=== PATIENT | female | born 1980 | race Caucasian/White ===

== ENCOUNTER 2018-08-06 15:34 | Emergency (ER) | payer SELFPAY ==
[~2018-08-06] VITALS: Ht 162.6 cm; Wt 72.6 kg
--- NOTE | 2018-08-06 16:23 | ED Lower Extremity ---
General Stated Complaint: POSSIBLE SPRAIN RT ANKLE Source: patient Exam Limitations: no limitations History of Present Illness Date Seen by Provider: Aug 06, 2018 Time Seen by Provider: 16:09 Initial Comments The patient presents to the ER by private conveyance with chief complaint that she was playing basketball yesterday and rolled her ankle forward and a little bit laterally. She doesn't member exactly how it happened but it hurt immediately and she started having some swelling. She put some ice on it yesterday and took some Tylenol PM last night so she had. She's not had anything for today and doesn't want anything. She says still quite swollen and painful and she is afraid fracture versus sprain. She does not have a primary care doctor but she would like to get linked back up with one for her preventative health issues. She does not take any medicines. Allergies and Home Medications Allergies Coded Allergies: clindamycin (Unverified Adverse Reaction, Unknown, 08/06/18) latex (Unverified Adverse Reaction, Unknown, 08/06/18) Patient Home Medication List Home Medication List Reviewed: Yes Review of Systems Constitutional: No chills, No fever EENTM: No ear discharge, No ear pain Respiratory: No cough, No short of breath Cardiovascular: No chest pain, No edema Gastrointestinal: No abdominal pain, No constipation, No diarrhea, No nausea Genitourinary: No discharge, No dysuria Past Fyicmuq-Boyodr-Myyqpe Hx Patient Social History Alcohol Use: Denies Use Recreational Drug Use: No Recent Foreign Travel: No Contact w/Someone Who Travel: No Physical Exam Vital Signs Capillary Refill : Height, Weight, BMI Height: '" Weight: lbs. oz. kg; BMI Method: General Appearance: WD/WN, no apparent distress HEENT: PERRL/EOMI, pharynx normal Cardiovascular: normal peripheral pulses, regular rate, rhythm Respiratory: no respiratory distress, no accessory muscle use Knees: bilateral knee non-tender, bilateral knee normal inspection, bilateral knee normal range of motion, bilateral knee no evidence of injury Ankles: left ankle non-tender, left ankle normal inspection, left ankle normal range of motion, left ankle no evidence of injury; right ankle bone tenderness ( lateral malleoli), right ankle ecchymosis, right ankle soft tissue tenderness, right ankle swelling (mild) Feet: left foot non-tender, left foot normal inspection; bilateral foot normal range of motion; left foot no evidence of injury; right foot bone tenderness ( tenderness over the dorsum of her right foot), right foot ecchymosis, right foot pain, right foot soft tissue tenderness, right foot swelling (mild) Neurologic/Tendon: normal sensation, normal motor functions, normal tendon functions, responds to pain Neurologic/Psychiatric: alert, normal mood/affect, oriented x 3 Skin: normal color, warm/dry Progress/Results/Core Measures Results/Orders Lab Results Laboratory Tests Test 08/06/18 16:45 Range/Units Urine Test NEGATIVE NEGATIVE My Orders Orders - MELANIE RODRIGUEZ Ankle 3 View Right (08/06/18 16:18) Foot 3 View Right (08/06/18 16:18) Hcg,Qualitative Urine (08/06/18 16:50) Progress Progress Note : Time: 16:22 Progress Note X-ray of the ankle for her right lateral malleoli tenderness and swelling as well as the right foot. She has declined anything for pain. We are going to provide her with an ice pack while she waits. Diagnostic Imaging Diagonstic Imaging: Xray Plain Films/CT/US/NM/MRI: other (right foot) Comments [facility] [place], [place] NAME: DARBYPETAR M [facility] REC#: [id number] PT STATUS: REG ER : 1980 PHYSICIAN: MELANIE RODRIGUEZ MD ADMIT DATE: 08/06/18/ER FS Draft Date of Exam:08/06/18 FOOT 3 VIEW RIGHT INDICATION: Injury to the right foot playing basketball. TIME OF EXAM: 04:53 p.m. FINDINGS: Three views of the right foot were obtained. Metatarsals and phalanges appear to be intact. Mid foot and hind foot are unremarkable. No fractures are seen. IMPRESSION: No acute bony abnormality is detected. Dictated on workstation # [id number] Dict: 08/06/18 1720 Trans: 08/06/18 [id number] Interpreted by: DARYL GALAVIZ MD Electronically signed by: Reviewed: Reviewed by Me Diagonstic Imaging: Xray Plain Films/CT/US/NM/MRI: ankle (right) Comments [facility] [place] [place] NAME: PETAR PASTOR [facility] REC#: [id number] PT STATUS: REG ER : 1980 PHYSICIAN: MELANIE RODRIGUEZ MD ADMIT DATE: 08/06/18/ER FS Draft Date of Exam:08/06/18 ANKLE 3 VIEW RIGHT INDICATION: Rolled ankle playing basketball. TIME OF EXAM: 04:51 p.m. FINDINGS: Three views of the right ankle were obtained. Alignment is normal. Ankle mortise is well maintained. Talar dome is smooth. No fracture or dislocation is seen. There is some lateral soft tissue swelling present. IMPRESSION: Lateral swelling. No acute bony abnormality is detected. Dictated on workstation # [id number] Dict: 08/06/18 1719 Trans: 08/06/18 1724 [id number] Interpreted by: DARYL GALAVIZ MD Electronically signed by: Reviewed: Reviewed by Me Departure Impression Primary Impression: Right ankle sprain Qualified Codes: S93.401A - Sprain of unspecified ligament of right ankle, initial encounter Disposition: HOME, SELF-CARE Condition: Stable Departure-Patient Inst. Decision time for Depature: 17:39 Referrals: NO,LOCAL PHYSICIAN (PCP) Primary Care Physician Patient Instructions: Ankle Sprain (DC), LOCAL PHYSICIAN LIST Add. Discharge Instructions: Elevate your ankle above the level of your heart when not in use. Minimize walking on it when you don't need to. Wrap the ankle with an Miguel bandage for the next week as needed for swelling. Apply ice for 20 minutes every 4 hours while awake to the right ankle and foot for the first 3 days of your injury. Use Tylenol 1000 mg every 8 hours in addition to ibuprofen 800 mg every 8 hours if necessary for pain. Follow-up with a primary care provider in one to 2 weeks if you do not feel you' re seeing some improvement in your right ankle. MELANIE RODRIGUEZ Aug 06, 2018 16:23
--- NOTE | 2018-08-06 17:24 | Diagnostic Imaging Report ---
INDICATION: Rolled ankle playing basketball. TIME OF EXAM: 04:51 p.m. FINDINGS: Three views of the right ankle were obtained. Alignment is normal. Ankle mortise is well maintained. Talar dome is smooth. No fracture or dislocation is seen. There is some lateral soft tissue swelling present. IMPRESSION: Lateral swelling. No acute bony abnormality is detected. Dictated by: Dictated on workstation # [id number]
--- NOTE | 2018-08-06 17:31 | Diagnostic Imaging Report ---
INDICATION: Injury to the right foot playing basketball. TIME OF EXAM: 04:53 p.m. FINDINGS: Three views of the right foot were obtained. Metatarsals and phalanges appear to be intact. Mid foot and hind foot are unremarkable. No fractures are seen. IMPRESSION: No acute bony abnormality is detected. Dictated by: Dictated on workstation # [id number]
[2018-08-06 17:50] VITALS: BP 133/66
== END 2018-08-06 17:50 | disposition home or self-care (01) ==
LOC: ER FS 15:37
DX: S93.401A Sprain of unspecified ligament of right ankle, initial encounter (principal); Z88.1 Allergy status to other antibiotic agents; Z91.040 Latex allergy status; X50.1XXA Overexertion from prolonged static or awkward postures, initial encounter; Y93.67 Activity, basketball
CPT/HCPCS: 73610; 73630; 84703

== ENCOUNTER 2018-10-21 20:30 | Emergency (ER) | payer SELFPAY ==
[~2018-10-21] VITALS: Ht 160 cm; Wt 63.0 kg
--- NOTE | 2018-10-21 21:23 | NUR ---
PT. REPORTED THAT SHE FEELS LIKE SHE HAS A HEART BEAT IN HER STOMACH AND ITS REALLY ANNOYING. DOCTOR INFORMED.
[2018-10-21 21:34] LABS: BILIRUBIN,URINE NEGATIVE (NEGATIVE); CLARITY,URINE CLEAR; COLOR,URINE YELLOW; KETONES,URINE NEGATIVE (NEGATIVE); LEUKOCYTE ESTERASE ,URINE NEGATIVE (NEGATIVE); NITRITE,URINE NEGATIVE (NEGATIVE); PROTEIN,URINE NEGATIVE (NEGATIVE)
[2018-10-21 21:35] LABS: BACTERIA,URINE NEGATIVE /HPF; GLUCOSE, URINE (UA) NEGATIVE (NEGATIVE); RBC,URINE 0-2 /HPF; WBC,URINE 0-2 /HPF
[2018-10-21 21:45] LABS: AMPHETAMINE SCREEN, URINE NEGATIVE (NEGATIVE); BARBITURATE SCREEN URINE NEGATIVE (NEGATIVE); BENZODIAZEPINES SCREEN URINE NEGATIVE (NEGATIVE); CANNABINOID SCREEN, URINE NEGATIVE (NEGATIVE); COCAINE SCREEN URINE NEGATIVE (NEGATIVE); METHADONE STAT NEGATIVE (NEGATIVE); METHAMPHETAMINE SCREEN URINE S NEGATIVE (NEGATIVE); OPIATE SCREEN URINE NEGATIVE (NEGATIVE); OXYCODONE STAT NEGATIVE (NEGATIVE); PROPOXYPHENE STAT NEGATIVE (NEGATIVE); TRICYCLIC ANTIDEPRESSANTS SCRE NEGATIVE (NEGATIVE)
[2018-10-21 21:57] VITALS: BP 120/67
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
[2018-10-21] MEDS ORDERED: ONDA4TAB11 PO (22:05)
--- OUTSIDE RECORDS SUMMARY | 2018-10-21 23:56 | XMS REPORT | Continuity of Care Document ---
Author Organization Unknown Address Unknown Allergies There is no data. Medications There is no data. Problems There is no data. Procedures There is no data. Results There is no data. Encounters ACCT No. Visit Date/Time Discharge Status Pt. Type Provider Facility Loc./Unit Complaint [id number] 10/08/2018 14:45:00 10/08/2018 23:59:59 [facility] Outpatient CAMILLE SHETH [facility]
== END 2018-10-21 22:08 | disposition home or self-care (01) ==
LOC: EDUNIT# 20:30 → ER FS 20:32
DX: M54.9 Dorsalgia, unspecified (principal); R10.2 Pelvic and perineal pain; J44.9 Chronic obstructive pulmonary disease, unspecified; G40.909 Epilepsy, unspecified, not intractable, without status epilepticus; Z88.1 Allergy status to other antibiotic agents; Z91.040 Latex allergy status; Z98.890 Other specified postprocedural states; Z90.49 Acquired absence of other specified parts of digestive tract
CPT/HCPCS: 36415; 80306; 81000; 84703; 99283

== ENCOUNTER 2018-11-22 01:14 | Emergency (ER) | payer SELFPAY ==
[~2018-11-22] VITALS: Ht 160 cm; Wt 59.0 kg
[~2018-11-22 01:14] MED LIST: ONDA4TAB11 PO
[2018-11-22] MEDS ORDERED: HYDROmorphone 2 MG/ML VIAL (DILAUDID) ONE (01:21)
--- OUTSIDE RECORDS SUMMARY | 2018-11-22 01:27 | XMS REPORT | Continuity of Care Document ---
Author Organization Unknown Address Unknown Allergies There is no data. Medications There is no data. Problems There is no data. Procedures There is no data. Results There is no data. Encounters ACCT No. Visit Date/Time Discharge Status Pt. Type Provider Facility Loc./Unit Complaint [id number] 10/23/2018 13:45:00 10/23/2018 23:59:59 [facility] Outpatient CAMILLE SHETH [facility]
[2018-11-22] MEDS ORDERED: HYDROmorphone 2 MG/ML VIAL (DILAUDID) IVP ONE (01:30)
[2018-11-22] MEDS ORDERED: TETANUS,DIPTH,PERTUSS P/F (BOOSTRIX) 0.5 ML VIAL IM ONE (01:30)
[2018-11-22] MEDS ORDERED: NS IV 1000 ML 1,000 ML IV SCH (01:30)
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
[2018-11-22 01:56] LABS: BASOPHILS % (AUTO) 1 % (0-10); EOSINOPHILS % (AUTO) 0 % (0-10); HEMATOCRIT 35 % (35-52); HEMOGLOBIN 11.4 G/DL (11.5-16.0); LYMPHOCYTES % (AUTO) 26 % (12-44); MEAN CORPUSCULAR HEMOGLOBIN 31 PG (25-34); MEAN CORPUSCULAR HGB CONC 33 G/DL (32-36); MEAN CORPUSCULAR VOLUME 96 FL (80-99); MEAN PLATELET VOLUME 9.7 FL (7.4-10.4); MONOCYTES % (AUTO) 6 % (0-12); NEUTROPHILS % (AUTO) 67 % (42-75); PLATELET COUNT 323 10^3/uL (130-400); RED CELL DISTRIBUTION WIDTH 15.9 % (10.0-14.5); WHITE BLOOD COUNT 10.7 10^3/uL (4.3-11.0)
[2018-11-22 02:00] LABS: BASOPHILS # (AUTO) 0.1 10^3/uL (0.0-0.1); LYMPHOCYTES # (AUTO) 2.8 X 10^3 (1.0-4.0); MONOCYTES # (AUTO) 0.7 X 10^3 (0.0-1.0); NEUTROPHILS # (AUTO) 7.2 X 10^3 (1.8-7.8)
[2018-11-22 02:09] LABS: INR 1.1 (0.8-1.4); PROTHROMBIN TIME PATIENT 14.2 SEC (12.2-14.7)
[2018-11-22 02:16] LABS: ALANINE AMINOTRANSFERASE 13 U/L (0-55); ALBUMIN 3.7 GM/DL (3.2-4.5); ALKALINE PHOSPHATASE 65 U/L (40-136); BILIRUBIN,TOTAL 0.4 MG/DL (0.1-1.0); BUN/CREATININE RATIO 12; CALCIUM 8.1 MG/DL (8.5-10.1); CARBON DIOXIDE 17 MMOL/L (21-32); CHLORIDE 109 MMOL/L (98-107); CREATININE SERUM 0.66 MG/DL (0.60-1.30); GFR ESTIMATED > 60; GLUCOSE 83 MG/DL (70-105); POTASSIUM 3.8 MMOL/L (3.6-5.0); SODIUM 143 MMOL/L (135-145); TOTAL PROTEIN 6.3 GM/DL (6.4-8.2)
[2018-11-22 03:18] VITALS: BP 86/56
== END 2018-11-22 03:20 | disposition short-term general hospital (02) ==
LOC: EDUNIT# 01:14 → ER FS 01:23
DX: T21.35XA Burn of third degree of buttock, initial encounter (principal); T21.27XA Burn of second degree of female genital region, initial encounter; J44.9 Chronic obstructive pulmonary disease, unspecified; F20.9 Schizophrenia, unspecified; G40.909 Epilepsy, unspecified, not intractable, without status epilepticus; Z90.49 Acquired absence of other specified parts of digestive tract; Z88.1 Allergy status to other antibiotic agents; Z91.040 Latex allergy status; X08.8XXA Exposure to other specified smoke, fire and flames, initial encounter; Y93.01 Activity, walking, marching and hiking
CPT/HCPCS: 36415; 80053; 80320; 84702; 85025; 85610; 85730; 90471; 90715; 96374

== ENCOUNTER 2018-11-28 04:29 | Emergency (ER) | payer SELFPAY ==
[~2018-11-28] VITALS: Ht 160 cm; Wt 59.0 kg
--- OUTSIDE RECORDS SUMMARY | 2018-11-28 04:35 | XMS REPORT | Continuity of Care Document ---
Author Organization Unknown Address Unknown Allergies There is no data. Medications There is no data. Problems There is no data. Procedures There is no data. Results There is no data. Encounters ACCT No. Visit Date/Time Discharge Status Pt. Type Provider Facility Loc./Unit Complaint [id number] 10/23/2018 13:45:00 10/23/2018 23:59:59 [facility] Outpatient CAMILLE SHETH [facility]
[2018-11-28 05:01] LABS: HCG,QUALITATIVE URINE NEGATIVE (NEGATIVE)
[2018-11-28 05:14] LABS: AMPHETAMINE SCREEN, URINE NEGATIVE (NEGATIVE); BARBITURATE SCREEN URINE NEGATIVE (NEGATIVE); BENZODIAZEPINES SCREEN URINE NEGATIVE (NEGATIVE); BILIRUBIN,URINE NEGATIVE (NEGATIVE); CANNABINOID SCREEN, URINE NEGATIVE (NEGATIVE); CLARITY,URINE CLEAR; COCAINE SCREEN URINE NEGATIVE (NEGATIVE); COLOR,URINE YELLOW; GLUCOSE, URINE (UA) NEGATIVE (NEGATIVE); KETONES,URINE NEGATIVE (NEGATIVE); LEUKOCYTE ESTERASE ,URINE 1+ (NEGATIVE); METHADONE STAT NEGATIVE (NEGATIVE); METHAMPHETAMINE SCREEN URINE S NEGATIVE (NEGATIVE); NITRITE,URINE NEGATIVE (NEGATIVE); OPIATE SCREEN URINE NEGATIVE (NEGATIVE); OXYCODONE STAT NEGATIVE (NEGATIVE); PROPOXYPHENE STAT NEGATIVE (NEGATIVE); PROTEIN,URINE NEGATIVE (NEGATIVE); TRICYCLIC ANTIDEPRESSANTS SCRE NEGATIVE (NEGATIVE); UROBILINOGEN,URINE 0.2 MG/DL (NORMAL)
[2018-11-28 05:15] LABS: RBC,URINE 0-2 /HPF; WBC,URINE 0-2 /HPF
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
[2018-11-28] MEDS ORDERED: DOCU-143 PO (05:44)
[2018-11-28] MEDS ORDERED: TRAM50TA2 PO (05:44)
[2018-11-28 05:47] VITALS: BP 124/92
== END 2018-11-28 05:47 | disposition home or self-care (01) ==
LOC: EDUNIT# 04:29 → ER FS 04:32
DX: R10.33 Periumbilical pain (principal); T21.25XD Burn of second degree of buttock, subsequent encounter; T21.2 Burn of second degree of trunk; J44.9 Chronic obstructive pulmonary disease, unspecified; G40.909 Epilepsy, unspecified, not intractable, without status epilepticus; F20.9 Schizophrenia, unspecified; F17.290 Nicotine dependence, other tobacco product, uncomplicated; Z91.14 Patient's other noncompliance with medication regimen; Z88.1 Allergy status to other antibiotic agents; Z91.040 Latex allergy status; Z90.49 Acquired absence of other specified parts of digestive tract; Z98.51 Tubal ligation status; X19.XXXD Contact with other heat and hot substances, subsequent encounter
CPT/HCPCS: 80306; 81000; 82962; 84703

== ENCOUNTER 2018-12-06 19:59 | Emergency (ER) | payer SELFPAY ==
[~2018-12-06] VITALS: Ht 162.6 cm; Wt 61.2 kg
[~2018-12-06 19:59] MED LIST changes: +DOCU-143 PO; +TRAM50TA2 PO
[2018-12-06] MEDS ORDERED: ACETAMINOPHEN 500 MG TAB (TYLENOL) PO ONE (20:30)
[2018-12-06 20:32] VITALS: BP 126/97
--- NOTE | 2018-12-06 21:01 | ED General ---
General Chief Complaint: Psych/Social Disorder Stated Complaint: MENTAL HEALTH SCREENING Nursing Triage Note: pt states problems with anxiety, no homicidal/suicidal thoughts, unsure of psych medications but wants medications "straightened out". pt also co bilateral hip pain for a year and nausea for 2 months Nursing Sepsis Screen: No Definite Risk Source of Information: Patient, EMS History of Present Illness Date Seen by Provider: Dec 06, 2018 Time Seen by Provider: 20:30 Initial Comments Patient is a 38-year-old female with history of schizophrenia presents with request for medication refill and bilateral hip pain 2 days duration. Patient denies fall, trauma or repetitive strain injury to hips or back. No back or flank pain. Pain is moderate reproduces with ambulation. No medications or therapies taken prior to ED arrival. Patient also states she's been out of all her general medications and psychiatric medications for at least 2 months. Patient states she stopped taking the medications, she felt as though she was feeling better and felt that time sedated on medications. Patient does not know listed medication and is unsure if she has refill of medications. Patient's pharmacy is [facility]. Patient denies any HI or SI. No other acute symptoms or complaints. Timing/Duration: 1-2 Days Modifying Factors: improves with Other Allergies and Home Medications Allergies Coded Allergies: clindamycin (Unverified Adverse Reaction, Unknown, 10/21/18) latex (Unverified Adverse Reaction, Unknown, 10/21/18) Home Medications Docusate Sodium 100 Mg Capsule, 100 MG PO DAILY Prescribed by: SUKHDEEP ALBA on 11/28/18 0544 Ondansetron 4 Mg Tab.rapdis, 4 MG PO Q6H Prescribed by: SUKHDEEP ALBA on 10/21/189 Tramadol HCl 50 Mg Tablet, 50 MG PO Q6H PRN for PAIN Prescribed by: SUKHDEEP ALBA on 11/28/18 0544 Patient Home Medication List Home Medication List Reviewed: No Review of Systems Review of Systems Constitutional: no symptoms reported EENTM: see HPI Respiratory: no symptoms reported, dyspnea on exertion Cardiovascular: chest pain Genitourinary: no symptoms reported Musculoskeletal: see HPI Skin: no symptoms reported Psychiatric/Neurological: See HPI, Anxiety, Emotional Problems Past Sobetur-Rwkhbc-Htxbtc Hx Past Med/Social Hx: Reviewed Nursing Past Med/Soc Hx Patient Social History Alcohol Use: Occasionally Uses Number of Drinks Today: AA Alcohol Beverage of Choice: Beer Recreational Drug Use: No Type Used: Cigars 2nd Hand Smoke Exposure: Yes Recent Foreign Travel: No Contact w/Someone Who Travel: No Recent Infectious Disease Expo: No Recent Hopitalizations: No Physical Abuse: No Sexual Abuse: No Mistreated: No Fear: No Immunizations Up To Date Tetanus Booster (TDap): Less than 5yrs Seasonal Allergies Seasonal Allergies: No Past Medical History Surgeries: Yes (C/S) Appendectomy, Section, Tubal Ligation Respiratory: Yes Asthma, COPD Cardiac: No Neurological: Yes (EPILEPSY) Seizure Disorder Genitourinary: No Gastrointestinal: No Musculoskeletal: No Endocrine: No HEENT: No Cancer: No Psychosocial: Yes Schizophrenia Integumentary: No Blood Disorders: No Physical Exam Vital Signs Vital Signs - First Documented 12/06/18 20:20 Temp 97.8 Pulse 94 Resp 20 B/P (MAP) 126/97 (107) Pulse Ox 97 O2 Delivery Room Air Capillary Refill : Less Than 3 Seconds Height, Weight, BMI Height: 5'4.00" Weight: 135lbs. 0oz. 61.514356me; 21.09 BMI Method:Stated General Appearance: No Apparent Distress, WD/WN, Anxious Eyes: Bilateral Eye Normal Inspection, Bilateral Eye PERRL HEENT: PERRL/EOMI, TMs Normal, Normal ENT Inspection Neck: Full Range of Motion Respiratory: Chest Non Tender, Lungs Clear Cardiovascular: Regular Rate, Rhythm, No Edema Gastrointestinal: Soft Back: No CVA Tenderness (infections) Extremity: Normal Inspection, Normal Range of Motion Neurologic/Psychiatric: Alert, Oriented x3, Other Focused Exam Sepsis Stage: Ruled Out Progress/Results/Core Measures Suspected Sepsis Recent Fever Within 48 Hours: No Infection Criteria Present: None New/Unexplained Altered Menta: No Sepsis Screen: No Definite Risk SIRS Temperature:97.8 Pulse: 94 Respiratory Rate: 20 Blood Pressure 126 /97 Mean: 107 Results/Orders My Orders Orders - SUKHDEEP ALBA DO Acetaminophen Tablet (Tylenol Tablet) (12/06/18 20:30) Medications Given in ED Current Medications Medications Dose Ordered Sig/Anabel Route Start Time Stop Time Status Last Admin Dose Admin Acetaminophen 1,000 mg ONCE ONCE PO 12/06/18 20:30 12/06/18 20:31 DC 12/06/18 20:33 1,000 MG Vital Signs/I&O 12/06/18 12/06/18 20:20 20:32 Temp 97.8 97.8 Pulse 94 94 Resp 20 20 B/P (MAP) 126/97 (107) 126/97 (107) Pulse Ox 97 97 O2 Delivery Room Air Capillary Refill : Less Than 3 Seconds Blood Pressure Mean: 107 Departure Communication (Admissions) Tylenol given for skeletal pain. Patient encouraged to a pharmacist contact this provider in the next 18 hours for phone authorization of refill of psychiatric medications. Otherwise, she is to follow-up with her PCP on Sunday for reau thorization. Return precautions reviewed. Impression Primary Impression: Musculoskeletal pain Disposition: HOME, SELF-CARE Condition: Improved Departure-Patient Inst. Decision time for Depature: 20:45 Add. Discharge Instructions: Have your pharmacist call the emergency department tomorrow morning before 2 PM to to obtain authorization of current medications from Dr. Alba. In the meantime, take Tylenol or ibuprofen as needed for musculoskeletal pain. All discharge instructions reviewed with patient and/or family. Voiced understanding. SUKHDEEP ALBA DO Dec 06, 2018 21:01
--- OUTSIDE RECORDS SUMMARY | 2018-12-06 22:09 | XMS REPORT | Continuity of Care Document ---
Author Organization Unknown Address Unknown Allergies There is no data. Medications There is no data. Problems There is no data. Procedures There is no data. Results There is no data. Encounters ACCT No. Visit Date/Time Discharge Status Pt. Type Provider Facility Loc./Unit Complaint [id number] 10/23/2018 13:45:00 10/23/2018 23:59:59 [facility] Outpatient CAMILLE SHETH [facility]
== END 2018-12-06 20:32 | disposition home or self-care (01) ==
LOC: EDUNIT# 19:59 → ER FS 20:01
DX: M79.10 Myalgia, unspecified site (principal); F41.9 Anxiety disorder, unspecified; F20.9 Schizophrenia, unspecified; J44.9 Chronic obstructive pulmonary disease, unspecified; G40.909 Epilepsy, unspecified, not intractable, without status epilepticus; Z91.14 Patient's other noncompliance with medication regimen; Z88.1 Allergy status to other antibiotic agents; Z91.040 Latex allergy status; Z77.22 Contact with and (suspected) exposure to environmental tobacco smoke (acute) (chronic); Z90.49 Acquired absence of other specified parts of digestive tract; Z98.51 Tubal ligation status
CPT/HCPCS: 99283

== ENCOUNTER 2018-12-06 22:11 | Emergency (ER) | payer SELFPAY ==
[~2018-12-06] VITALS: Ht 162.6 cm; Wt 61.2 kg
--- OUTSIDE RECORDS SUMMARY | 2018-12-06 22:19 | XMS REPORT | Continuity of Care Document ---
Author Organization Unknown Address Unknown Allergies There is no data. Medications There is no data. Problems There is no data. Procedures There is no data. Results There is no data. Encounters ACCT No. Visit Date/Time Discharge Status Pt. Type Provider Facility Loc./Unit Complaint [id number] 10/23/2018 13:45:00 10/23/2018 23:59:59 [facility] Outpatient CAMILLE SHETH [facility]
[2018-12-06 22:29] LABS: AMPHETAMINE SCREEN, URINE NEGATIVE (NEGATIVE); BARBITURATE SCREEN URINE NEGATIVE (NEGATIVE); BENZODIAZEPINES SCREEN URINE NEGATIVE (NEGATIVE); CANNABINOID SCREEN, URINE NEGATIVE (NEGATIVE); COCAINE SCREEN URINE NEGATIVE (NEGATIVE); METHADONE STAT NEGATIVE (NEGATIVE); METHAMPHETAMINE SCREEN URINE S NEGATIVE (NEGATIVE); OPIATE SCREEN URINE NEGATIVE (NEGATIVE); OXYCODONE STAT NEGATIVE (NEGATIVE); PROPOXYPHENE STAT NEGATIVE (NEGATIVE); TRICYCLIC ANTIDEPRESSANTS SCRE NEGATIVE (NEGATIVE)
[2018-12-06 22:45] LABS: HEMATOCRIT 33 % (35-52); HEMOGLOBIN 10.8 G/DL (11.5-16.0); MEAN CORPUSCULAR HEMOGLOBIN 31 PG (25-34); MEAN CORPUSCULAR HGB CONC 32 G/DL (32-36); MEAN CORPUSCULAR VOLUME 95 FL (80-99); MEAN PLATELET VOLUME 9.1 FL (7.4-10.4); NEUTROPHILS % (AUTO) 59 % (42-75); PLATELET COUNT 492 10^3/uL (130-400); RED CELL DISTRIBUTION WIDTH 15.8 % (10.0-14.5); WHITE BLOOD COUNT 9.9 10^3/uL (4.3-11.0)
[2018-12-06 22:46] LABS: BASOPHILS # (AUTO) 0.1 10^3/uL (0.0-0.1); BASOPHILS % (AUTO) 1 % (0-10); EOSINOPHILS % (AUTO) 0 % (0-10); LYMPHOCYTES # (AUTO) 3.3 X 10^3 (1.0-4.0); LYMPHOCYTES % (AUTO) 34 % (12-44); MONOCYTES # (AUTO) 0.6 X 10^3 (0.0-1.0); MONOCYTES % (AUTO) 6 % (0-12); NEUTROPHILS # (AUTO) 5.9 X 10^3 (1.8-7.8)
--- NOTE | 2018-12-06 23:04 | NUR ---
Patient asked for a drink and is given some water.
[2018-12-06 23:11] LABS: CHLORIDE 102 MMOL/L (98-107); POTASSIUM 3.5 MMOL/L (3.6-5.0); SODIUM 140 MMOL/L (135-145)
[2018-12-06 23:12] LABS: ALANINE AMINOTRANSFERASE 10 U/L (0-55); ALKALINE PHOSPHATASE 61 U/L (40-136); BILIRUBIN,TOTAL 0.3 MG/DL (0.1-1.0); BUN/CREATININE RATIO 11; CALCIUM 8.9 MG/DL (8.5-10.1); CARBON DIOXIDE 25 MMOL/L (21-32); CREATININE SERUM 0.73 MG/DL (0.60-1.30); GFR ESTIMATED > 60; GLUCOSE 102 MG/DL (70-105); TOTAL PROTEIN 6.5 GM/DL (6.4-8.2)
--- NOTE | 2018-12-06 23:15 | NUR ---
This RN called [facility] to request a screening. They advised a screener would call back when they became available.
--- NOTE | 2018-12-06 23:18 | NUR ---
Patient is given a warm blanket
--- NOTE | 2018-12-06 23:41 | NUR ---
Julia from mental health calls back. Zoom Number: [id number] Tracking Number: [id number]
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
--- NOTE | 2018-12-07 00:02 | NUR ---
Julia from mental health called this RN to advise that the screening process was over. She states that the patient denied suicidal and homicidal ideation. Patient requested therapy for which appointments are set up. Julia will fax a safety plan and patient is able to be discharged if medically stable.
[2018-12-07 00:17] VITALS: BP 122/76
== END 2018-12-07 00:17 | disposition home or self-care (01) ==
LOC: EDUNIT# 22:11 → ER FS 22:12
DX: F41.9 Anxiety disorder, unspecified (principal); F39 Unspecified mood [affective] disorder; F20.9 Schizophrenia, unspecified; G47.00 Insomnia, unspecified; J44.9 Chronic obstructive pulmonary disease, unspecified; G40.909 Epilepsy, unspecified, not intractable, without status epilepticus; Z90.49 Acquired absence of other specified parts of digestive tract; Z98.51 Tubal ligation status; Z77.22 Contact with and (suspected) exposure to environmental tobacco smoke (acute) (chronic); Z88.1 Allergy status to other antibiotic agents; Z91.040 Latex allergy status
CPT/HCPCS: 36415; 80053; 80306; 80320; 85025; 93005

== ENCOUNTER 2019-01-03 23:43 | Emergency (ER) | payer SELFPAY ==
[~2019-01-03] VITALS: Ht 160 cm; Wt 62.1 kg
[2019-01-04] MEDS ORDERED: RT-ALBUTEROL/IPRATROPIUM 3 ML (DUONEB) VIAL INH ONE (00:30)
[2019-01-04] MEDS ORDERED: NS IV 1000 ML 1,000 ML IV ONE (00:30)
[2019-01-04] MEDS ORDERED: LORazepam INJ 2 MG/ML (ATIVAN) VIAL IVP ONE (00:30)
[2019-01-04 01:06] LABS: HEMATOCRIT 35 % (35-52); HEMOGLOBIN 11.2 G/DL (11.5-16.0); MEAN CORPUSCULAR HEMOGLOBIN 30 PG (25-34); MEAN CORPUSCULAR HGB CONC 32 G/DL (32-36); MEAN CORPUSCULAR VOLUME 95 FL (80-99); WHITE BLOOD COUNT 9.2 10^3/uL (4.3-11.0)
[2019-01-04 01:07] LABS: BASOPHILS % (AUTO) 0 % (0-10); EOSINOPHILS # (AUTO) 0.1 10^3/uL (0.0-0.3); EOSINOPHILS % (AUTO) 1 % (0-10); LYMPHOCYTES # (AUTO) 2.7 X 10^3 (1.0-4.0); LYMPHOCYTES % (AUTO) 29 % (12-44); MEAN PLATELET VOLUME 9.2 FL (7.4-10.4); MONOCYTES # (AUTO) 0.8 X 10^3 (0.0-1.0); MONOCYTES % (AUTO) 8 % (0-12); NEUTROPHILS # (AUTO) 5.6 X 10^3 (1.8-7.8); NEUTROPHILS % (AUTO) 61 % (42-75); PLATELET COUNT 416 10^3/uL (130-400); RED CELL DISTRIBUTION WIDTH 16.4 % (10.0-14.5)
[2019-01-04 01:12] LABS: PROTHROMBIN TIME PATIENT 13.8 SEC (12.2-14.7)
[2019-01-04 01:22] LABS: POTASSIUM 4.1 MMOL/L (3.6-5.0); SODIUM 143 MMOL/L (135-145)
[2019-01-04 01:23] LABS: ALANINE AMINOTRANSFERASE 11 U/L (0-55); ALKALINE PHOSPHATASE 71 U/L (40-136); BILIRUBIN,TOTAL 0.2 MG/DL (0.1-1.0); BUN/CREATININE RATIO 21; CALCIUM 9.6 MG/DL (8.5-10.1); CARBON DIOXIDE 25 MMOL/L (21-32); CHLORIDE 105 MMOL/L (98-107); CREATININE SERUM 0.61 MG/DL (0.60-1.30); GFR ESTIMATED > 60; GLUCOSE 95 MG/DL (70-105); TOTAL PROTEIN 6.7 GM/DL (6.4-8.2)
[2019-01-04 01:24] LABS: ALBUMIN 4.2 GM/DL (3.2-4.5)
[2019-01-04 01:44] VITALS: BP 108/63
--- NOTE | 2019-01-04 01:44 | ED General ---
General Chief Complaint: Substance Abuse Stated Complaint: DETOX Nursing Triage Note: PT STATES SHE USED METH EARLIER THIS MORNING AND NOW NEEDS SOMETHING TO HELP HER COME DOWN FROM THE HIGH. Nursing Sepsis Screen: No Definite Risk Source of Information: Patient Exam Limitations: No Limitations History of Present Illness Date Seen by Provider: Jan 04, 2019 Time Seen by Provider: 00:22 Initial Comments This 38-year-old woman presents to the emergency room with primary complaint of inability to sleep due to methamphetamine use. She recently smoked methamphetamine and states she needs help coming down off of her high. She has fears that she will wake up if she falls asleep. She denies any alcohol or other substance abuse. She is currently staying with her sister as she does not have a permanent residence. She also complains of cough and scratchy throat. She has been having chest discomfort for a couple of days. She does have COPD and is not using any inhaled treatments at present. She also comments that she frequently has emesis in the mornings. This is been ongoing for several months. She has had no emesis today and denies nausea at present. Patient reports she was recently prescribed gabapentin but has not filled yet. She is concerned about the possibility of seizures. She previously was treated for seizures but currently does not have any medication for seizure prevention. Allergies and Home Medications Allergies Coded Allergies: clindamycin (Unverified Adverse Reaction, Unknown, 10/21/18) latex (Unverified Adverse Reaction, Unknown, 10/21/18) Home Medications Albuterol Sulfate 1 Puff Puff, 2 PUFF IH Q4H PRN for SHORTNESS OF BREATH 1 PUFF = 90 MCG Prescribed by: GUIDO DAVILA on 01/04/19 0146 Docusate Sodium 100 Mg Capsule, 100 MG PO DAILY Prescribed by: SUKHDEEP MCCULLOUGH on 11/28/18 0544 Ondansetron 4 Mg Tab.rapdis, 4 MG PO Q6H Prescribed by: SUKHDEEP MCCULLOUGH on 10/21/18 2205 Tramadol HCl 50 Mg Tablet, 50 MG PO Q6H PRN for PAIN Prescribed by: SUKHDEEP MCCULLOUGH on 11/28/18 0544 Patient Home Medication List Home Medication List Reviewed: Yes Review of Systems Review of Systems Constitutional: see HPI, other EENTM: see HPI Respiratory: see HPI Cardiovascular: no symptoms reported Gastrointestinal: see HPI Genitourinary: no symptoms reported : No Musculoskeletal: no symptoms reported Skin: no symptoms reported Psychiatric/Neurological: See HPI Hematologic/Lymphatic: No Symptoms Reported Immunological/Allergic: no symptoms reported Past Dybepff-Lqcise-Fxyqys Hx Past Med/Social Hx: Reviewed Nursing Past Med/Soc Hx Patient Social History Alcohol Use: Occasionally Uses Number of Drinks Today: AA Alcohol Beverage of Choice: Beer Recreational Drug Use: Yes Drug of Choice: METH Smoking Status: Current Everyday Smoker Type Used: Cigars 2nd Hand Smoke Exposure: Yes Recent Foreign Travel: No Contact w/Someone Who Travel: No Recent Infectious Disease Expo: No Recent Hopitalizations: No Physical Abuse: No Sexual Abuse: No Immunizations Up To Date Tetanus Booster (TDap): Less than 5yrs Seasonal Allergies Seasonal Allergies: No Past Medical History Surgeries: Yes (C/S) Appendectomy, Section, Tubal Ligation Respiratory: Yes Asthma, COPD Cardiac: No Neurological: Yes (EPILEPSY) Seizure Disorder : No Genitourinary: No Gastrointestinal: Yes Liver Disease/Jaundice Musculoskeletal: No Endocrine: No HEENT: No Cancer: No Psychosocial: Yes Anxiety, Schizophrenia Integumentary: No Blood Disorders: No Physical Exam Vital Signs Vital Signs - First Documented 01/04/19 01/04/19 01:06 01:08 Temp 97.6 Pulse 102 Resp 18 B/P (MAP) 112/69 (83) Pulse Ox 100 O2 Delivery Nasal Cannula O2 Flow Rate 2.00 Capillary Refill : Less Than 3 Seconds Height, Weight, BMI Height: 5'3.00" Weight: 137lbs. 0oz. [id number]; 21.09 BMI Method:Actual General Appearance: WD/WN, Anxious HEENT: PERRL/EOMI, Normal ENT Inspection, Other (oropharynx dry, poor dentition) Neck: Normal Inspection, Non Tender Respiratory: No Accessory Muscle Use, No Respiratory Distress, Other (dry cough, decreased air movement) Cardiovascular: Regular Rate, Rhythm, No Edema, No Murmur Gastrointestinal: Non Tender, Soft Extremity: Normal Inspection, No Pedal Edema Skin: Normal Color, Warm/Dry Progress/Results/Core Measures Suspected Sepsis Recent Fever Within 48 Hours: No Infection Criteria Present: None New/Unexplained Altered Menta: No Sepsis Screen: No Definite Risk SIRS Temperature:97.6 Pulse: 102 Respiratory Rate: 18 Laboratory Tests 01/04/19 00:50: White Blood Count 9.2 Blood Pressure 112 /69 Mean: 83 Laboratory Tests 8/17/19 00:50: Creatinine 0.61, INR Comment 1.0, Platelet Count 416H, Total Bilirubin 0.2 Results/Orders Lab Results Laboratory Tests Test 01/04/19 00:50 Range/Units White Blood Count 9.2 4.3-11.0 10^3/uL Red Blood Count 3.72 L 4.35-5.85 10^6/uL Hemoglobin 11.2 L 11.5-16.0 G/DL Hematocrit 35 35-52 % Mean Corpuscular Volume 95 80-99 FL Mean Corpuscular Hemoglobin 30 25-34 PG Mean Corpuscular Hemoglobin Concent 32 32-36 G/DL Red Cell Distribution Width 16.4 H 10.0-14.5 % Platelet Count 416 H 130-400 10^3/uL Mean Platelet Volume 9.2 7.4-10.4 FL Neutrophils (%) (Auto) 61 42-75 % Lymphocytes (%) (Auto) 29 12-44 % Monocytes (%) (Auto) 8 0-12 % Eosinophils (%) (Auto) 1 0-10 % Basophils (%) (Auto) 0 0-10 % Neutrophils # (Auto) 5.6 1.8-7.8 X 10^3 Lymphocytes # (Auto) 2.7 1.0-4.0 X 10^3 Monocytes # (Auto) 0.8 0.0-1.0 X 10^3 Eosinophils # (Auto) 0.1 0.0-0.3 10^3/uL Basophils # (Auto) 0.0 0.0-0.1 10^3/uL Prothrombin Time 13.8 12.2-14.7 SEC INR Comment 1.0 0.8-1.4 Activated Partial Thromboplast Time 27 24-35 SEC Sodium Level 143 135-145 MMOL/L Potassium Level 4.1 3.6-5.0 MMOL/L Chloride Level 105 98-107 MMOL/L Carbon Dioxide Level 25 21-32 MMOL/L Anion Gap 13 5-14 MMOL/L Blood Urea Nitrogen 13 7-18 MG/DL Creatinine 0.61 0.60-1.30 MG/DL Estimat Glomerular Filtration Rate > 60 BUN/Creatinine Ratio 21 Glucose Level 95 70-105 MG/DL Calcium Level 9.6 8.5-10.1 MG/DL Corrected Calcium 9.4 8.5-10.1 MG/DL Magnesium Level 2.0 1.6-2.4 MG/DL Total Bilirubin 0.2 0.1-1.0 MG/DL Aspartate Amino Transf (AST/SGOT) 14 5-34 U/L Alanine Aminotransferase (ALT/SGPT) 11 0-55 U/L Alkaline Phosphatase 71 40-136 U/L Myoglobin < 21.0 10.0-92.0 NG/ML Troponin I < 0.30 <0.30 NG/ML Total Protein 6.7 6.4-8.2 GM/DL Albumin 4.2 3.2-4.5 GM/DL Serum Alcohol < 10 <10 MG/DL My Orders Orders - GUIDO MONROE MD Ed Iv/Invasive Line Start (01/04/19 00:30) Ns Iv 1000 Ml (Sodium Chloride 0.9%) (01/04/19 00:30) Alcohol (01/04/19 00:30) Cbc With Automated Diff (01/04/19:30) Comprehensive Metabolic Panel (01/04/19:30) Magnesium (01/04/19:30) Ekg Tracing (01/04/19:30) Myoglobin Serum (01/04/19:30) Protime With Inr (01/04/19:30) Partial Thromboplastin Time (01/04/19:30) O2 (01/04/19:30) Monitor-Rhythm Ecg Trace Only (01/04/19:30) Ed Iv/Invasive Line Start (01/04/19:30) Troponin I (01/04/19:30) Chest Pa/Lat (2 View) (01/04/19:30) Albuterol/Ipra Inhalation Soln (Duoneb I (01/04/19:30) Svn Small Volume Nebulizer (01/04/19:30) Lorazepam Injection (Ativan Injection) (01/04/19:30) Medications Given in ED Current Medications Medications Dose Ordered Sig/Anabel Route Start Time Stop Time Status Last Admin Dose Admin Albuterol/ Ipratropium 3 ml ONCE ONCE INH 01/04/19 00:30 01/04/19 00:34 DC 01/04/19 00:55 3 ML Lorazepam 0.5 mg ONCE ONCE IVP 01/04/19 00:30 01/04/19 00:34 DC 01/04/19 00:55 0.5 MG Sodium Chloride 1,000 ml @ 0 mls/hr Q0M ONCE IV 01/04/19 00:30 01/04/19 00:34 DC 01/04/19 00:55 999 MLS/HR Vital Signs/I&O 01/04/19 01/04/19 01/04/19 01:06 01:08 01:44 Temp 97.6 Pulse 102 82 Resp 18 18 B/P (MAP) 112/69 (83) 108/63 (78) Pulse Ox 100 100 99 O2 Delivery Nasal Cannula Room Air Room Air O2 Flow Rate 2.00 Capillary Refill : Less Than 3 Seconds Blood Pressure Mean: 83 Progress Note : Progress Note Patient received a DuoNeb treatment with improvement in her coughing and air movement. A liter of IV fluid was infused. Ativan 0.5 mg IV was administered which allowed patient to rest and sleep. Workup was otherwise unremarkable. ECG Initial ECG Impression Date: Jan 04, 2019 Initial ECG Impression Time: 00:42 Initial ECG Rate: 92 Initial ECG Rhythm: Normal Sinus Initial ECG Intervals: Normal Initial ECG Impression: Normal Comment Normal sinus rhythm with no ST elevation or depression. No abnormal intervals or axis deviation. Diagnostic Imaging Diagonstic Imaging: Xray Plain Films/CT/US/NM/MRI: chest Comments Chest x-ray viewed by me and report not yet available. No acute abnormalities appreciated. Departure Impression Primary Impression: COPD exacerbation Additional Impression: Methamphetamine abuse Disposition: HOME, SELF-CARE Condition: Improved Departure-Patient Inst. Decision time for Depature: 01:39 Referrals: CAMILLE SHETH MD (PCP/Family) Primary Care Physician Patient Instructions: ALCOHOL AND SUBSTANCE ABUSE, COPD Including Emphysema ( DC) Add. Discharge Instructions: Drink plenty of clear liquids. Use your inhaler as prescribed for wheezing or shortness of breath. Discontinue use of methamphetamines. Seek referral to substance abuse treatment programs from your primary care provider at [facility]. Return to care if you have worsening symptoms. Fill and use your medications as prescribed. Follow-up with your primary care provider soon as possible. All discharge instructions reviewed with patient and/or family. Voiced un derstanding. Scripts Albuterol Sulfate (PROAIR HFA) 1 Puff Puff 2 PUFF IH Q4H PRN for SHORTNESS OF BREATH, #1 EA 1 PUFF = 90 MCG Prov: GUIDO MONROE MD 01/04/19 Copy Copies To 1: CAMILLE SHETH MD, JOSHUA T MD Jan 04, 2019 01:44
[2019-01-04] MEDS ORDERED: RT-ALBUINH IH (01:46)
--- NOTE | 2019-01-04 05:56 | Diagnostic Imaging Report ---
EXAMINATION: PA and lateral chest at 1218 AM INDICATION: Cough There are no prior studies available for comparison. The heart size is within normal limits. The lungs are clear. There is no evidence for failure, pneumonia or for a pleural effusion. The mediastinum is not widened. The osseous structures are intact. There does appear to be extensive orthopedic hardware involving the left humerus. IMPRESSION: There is no evidence for an acute cardiopulmonary abnormality. Dictated by: Dictated on workstation # [id number]
== END 2019-01-04 01:52 | disposition home or self-care (01) ==
LOC: EDUNIT# 23:43 → ER FS 23:45
DX: F15.10 Other stimulant abuse, uncomplicated (principal); J44.1 Chronic obstructive pulmonary disease with (acute) exacerbation; J45.909 Unspecified asthma, uncomplicated; G40.909 Epilepsy, unspecified, not intractable, without status epilepticus; F41.9 Anxiety disorder, unspecified; F20.9 Schizophrenia, unspecified; F17.290 Nicotine dependence, other tobacco product, uncomplicated; Z91.14 Patient's other noncompliance with medication regimen; Z88.1 Allergy status to other antibiotic agents; Z90.49 Acquired absence of other specified parts of digestive tract; Z98.51 Tubal ligation status
CPT/HCPCS: 36415; 71046; 80053; 80320; 83735; 83874; 84484; 85025; 85610; 85730; 93005; 93041

== ENCOUNTER 2019-01-06 19:53 | Emergency (ER) | payer SELFPAY ==
[~2019-01-06] VITALS: Ht 162.6 cm; Wt 61.7 kg
[~2019-01-06 19:53] MED LIST changes: +RT-ALBUINH IH
--- NOTE | 2019-01-06 20:26 | ED Lower Extremity ---
General Chief Complaint: Lower Extremity Stated Complaint: ANKLE LAC Nursing Triage Note: Patient states that she went swimming [place] in [place]. She now has 3 spots that are black on her left foot. Patient is concerned her "skin is rotting off" due to being told someone put chemicals in the water. Patient has had these spots for approximately a week. Nursing Sepsis Screen: No Definite Risk Source: patient History of Present Illness Date Seen by Provider: Jan 06, 2019 Time Seen by Provider: 20:26 Initial Comments 38-year-old female presenting with complaints of sores on her left ankle and foot. She states that these came up after she been swimming [place] in [place]. She reports that they are very sore and painful. She is concerned that someone told her that that chemicals in the [place] to cause people scan to run off. She also knows that she has been using drugs and that that might be causing her to have problems with her skin. She is worried that she might be as well. She is sure that these areas are infected. Allergies and Home Medications Allergies Coded Allergies: clindamycin (Unverified Adverse Reaction, Unknown, 10/21/18) latex (Unverified Adverse Reaction, Unknown, 10/21/18) Home Medications Albuterol Sulfate 1 Puff Puff, 2 PUFF IH Q4H PRN for SHORTNESS OF BREATH 1 PUFF = 90 MCG Prescribed by: GUIDO DAVILA on 01/04/19 0146 Docusate Sodium 100 Mg Capsule, 100 MG PO DAILY Prescribed by: SUKHDEEP MCCULLOUGH on 11/28/18 0544 Ondansetron 4 Mg Tab.rapdis, 4 MG PO Q6H Prescribed by: SUKHDEEP MCCULLOUGH on 10/21/18 2205 Sulfamethoxazole/Trimethoprim 1 Each Tablet, 1 EACH PO BID Prescribed by: JOSE YOO on 01/06/192143 Tramadol HCl 50 Mg Tablet, 50 MG PO Q6H PRN for PAIN Prescribed by: SUKHDEEP MCCULLOUGH on 11/28/18 0549 Patient Home Medication List Home Medication List Reviewed: Yes Review of Systems Constitutional: No chills, No fever EENTM: no symptoms reported Respiratory: no symptoms reported Cardiovascular: no symptoms reported Gastrointestinal: no symptoms reported Genitourinary: no symptoms reported Musculoskeletal: see HPI Skin: see HPI Psychiatric/Neurological: Anxiety Past Zwvcegp-Awcvgf-Xjfoyb Hx Past Med/Social Hx: Reviewed Nursing Past Med/Soc Hx Patient Social History Alcohol Use: Occasionally Uses Number of Drinks Today: AA Alcohol Beverage of Choice: Beer Recreational Drug Use: Yes Drug of Choice: METH Type Used: Cigars 2nd Hand Smoke Exposure: Yes Recent Foreign Travel: No Contact w/Someone Who Travel: No Recent Infectious Disease Expo: No Recent Hopitalizations: No Physical Abuse: No Sexual Abuse: No Mistreated: No Fear: No Immunizations Up To Date Tetanus Booster (TDap): Less than 5yrs Seasonal Allergies Seasonal Allergies: No Past Medical History Surgeries: Yes (C/S) Appendectomy, Section, Tubal Ligation Respiratory: Yes Asthma, COPD Cardiac: No Neurological: Yes (EPILEPSY) Seizure Disorder Genitourinary: No Gastrointestinal: Yes Liver Disease/Jaundice Musculoskeletal: No Endocrine: No HEENT: No Cancer: No Psychosocial: Yes Anxiety, Schizophrenia Integumentary: No Blood Disorders: No Physical Exam Vital Signs Vital Signs - First Documented 01/06/19 20:07 Temp 97.6 Pulse 102 Resp 22 B/P (MAP) 116/78 (91) Pulse Ox 96 O2 Delivery Room Air Capillary Refill : Less Than 3 Seconds Height, Weight, BMI Height: 5'4.00" Weight: 136lbs. 0oz. 61.905483la; 21.09 BMI Method:Stated General Appearance: mild distress, thin Ankles: left ankle soft tissue tenderness (open sore to the subcutaneous tissue with a black eschar present and some surrounding erythema. There is no drainage present. There is no fluctuance. The area is slightly warm and slightly indurated.) Neurologic/Tendon: normal sensation, normal motor functions Neurologic/Psychiatric: alert, oriented x 3, other (anxious) Skin: warm/dry Progress/Results/Core Measures Results/Orders Lab Results Laboratory Tests Test 01/06/19 20:58 Range/Units Urine Color YELLOW Urine Clarity CLEAR Urine pH 7.5 5-9 Urine Specific Hardy 1.020 1.016-1.022 Urine Protein NEGATIVE NEGATIVE Urine Glucose (UA) NEGATIVE NEGATIVE Urine Ketones NEGATIVE NEGATIVE Urine Nitrite NEGATIVE NEGATIVE Urine Bilirubin NEGATIVE NEGATIVE Urine Urobilinogen 0.2 NORMAL MG/DL Urine Leukocyte Esterase NEGATIVE NEGATIVE Urine RBC (Auto) NEGATIVE NEGATIVE Urine RBC NONE /HPF Urine WBC NONE /HPF Urine Squamous Epithelial Cells 5-10 /HPF Urine Crystals NONE /LPF Urine Bacteria NONE /HPF Urine Casts NONE /LPF Urine Mucus NEGATIVE /LPF Urine Culture Indicated NO Urine Test NEGATIVE NEGATIVE Urine Opiates Screen NEGATIVE NEGATIVE Urine Oxycodone Screen NEGATIVE NEGATIVE Urine Methadone Screen NEGATIVE NEGATIVE Urine Propoxyphene Screen NEGATIVE NEGATIVE Urine Barbiturates Screen NEGATIVE NEGATIVE Ur Tricyclic Antidepressants Screen POSITIVE H NEGATIVE Urine Phencyclidine Screen NEGATIVE NEGATIVE Urine Amphetamines Screen NEGATIVE NEGATIVE Urine Methamphetamines Screen NEGATIVE NEGATIVE Urine Benzodiazepines Screen NEGATIVE NEGATIVE Urine Cocaine Screen NEGATIVE NEGATIVE Urine Cannabinoids Screen NEGATIVE NEGATIVE My Orders Orders - JOSE YOO MD Ua Culture If Indicated (01/06/19 20:35) Hcg,Qualitative Urine (01/06/19 20:35) Drug Screen Stat (Urine) (01/06/19 20:35) Sulfamethoxazole/Trimet Ds Tab (Bactrim (01/06/19 21:00) Rx-Mupirocin 2% Oint (Rx-Bactroban) (01/06/19 21:00) Ketorolac Injection (Toradol Injection) (01/06/19 21:00) Wound Dressing-Ed (01/06/19 21:00) Vital Signs/I&O 01/06/19 01/06/19 20:07 21:48 Temp 97.6 97.6 Pulse 102 102 Resp 22 22 B/P (MAP) 116/78 (91) 116/78 (91) Pulse Ox 96 96 O2 Delivery Room Air Blood Pressure Mean: 91 Progress Progress Note : Progress Note Urinalysis and urine was negative. Urine drug screen was only positive for tricyclics. The wounds on her foot were cleaned by the nurse and then dressed with Bactroban and a clean dry dressing. She is counseled to continue on Bactrim and Bactroban both. Follow up with clinic for continued concerns Departure Impression Primary Impression: Cellulitis of left ankle Additional Impression: Cellulitis of foot, left Disposition: 01 HOME, SELF-CARE Condition: Stable Departure-Patient Inst. Decision time for Depature: 21:42 Referrals: CAMILLE SHETH MD (PCP/Family) Primary Care Physician Patient Instructions: Cellulitis (Skin Infection), Adult (DC) Add. Discharge Instructions: Take the full course of antibiotics to treat for the sores on your foot and ankle. Use the ointment to the sores 2 times a day and cover them with clean dry dressings Follow up with clinic this week for a recheck All discharge instructions reviewed with patient and/or family. Voiced underst anding. Scripts Sulfamethoxazole/Trimethoprim (Bactrim Ds Tablet) 1 Each Tablet 1 EACH PO BID for 10 Days, #20 TAB 0 Refills Prov: JOSE YOO MD 01/06/19 JOSE YOO MD Jan 06, 2019 20:26
[2019-01-06] MEDS ORDERED: KETOROLAC 60 MG/2 ML VIAL IM STA (21:00)
[2019-01-06] MEDS ORDERED: RX-MUPIROCIN (BACTROBAN) 2% OINT 22 GM TUBE TOP STA (21:00)
[2019-01-06] MEDS ORDERED: TRIM/SULFAMETH 160/800 (SEPTRA DS) TAB PO STA (21:00)
[2019-01-06 21:17] LABS: BILIRUBIN,URINE NEGATIVE (NEGATIVE); CLARITY,URINE CLEAR; COLOR,URINE YELLOW; GLUCOSE, URINE (UA) NEGATIVE (NEGATIVE); HCG,QUALITATIVE URINE NEGATIVE (NEGATIVE); KETONES,URINE NEGATIVE (NEGATIVE); LEUKOCYTE ESTERASE ,URINE NEGATIVE (NEGATIVE); NITRITE,URINE NEGATIVE (NEGATIVE); PH,URINE 7.5 (5-9); PROTEIN,URINE NEGATIVE (NEGATIVE); UROBILINOGEN,URINE 0.2 MG/DL (NORMAL)
[2019-01-06 21:24] LABS: AMPHETAMINE SCREEN, URINE NEGATIVE (NEGATIVE); BARBITURATE SCREEN URINE NEGATIVE (NEGATIVE); BENZODIAZEPINES SCREEN URINE NEGATIVE (NEGATIVE); CANNABINOID SCREEN, URINE NEGATIVE (NEGATIVE); COCAINE SCREEN URINE NEGATIVE (NEGATIVE); METHADONE STAT NEGATIVE (NEGATIVE); METHAMPHETAMINE SCREEN URINE S NEGATIVE (NEGATIVE); OPIATE SCREEN URINE NEGATIVE (NEGATIVE); OXYCODONE STAT NEGATIVE (NEGATIVE); PROPOXYPHENE STAT NEGATIVE (NEGATIVE); TRICYCLIC ANTIDEPRESSANTS SCRE POSITIVE (NEGATIVE)
[2019-01-06] MEDS ORDERED: SULF1TAB35 PO (21:44)
[2019-01-06 21:48] VITALS: BP 116/78
== END 2019-01-06 21:48 | disposition home or self-care (01) ==
LOC: EDUNIT# 19:53 → ER FS 19:54
DX: L03.116 Cellulitis of left lower limb (principal); J44.9 Chronic obstructive pulmonary disease, unspecified; G40.909 Epilepsy, unspecified, not intractable, without status epilepticus; F41.9 Anxiety disorder, unspecified; F20.9 Schizophrenia, unspecified; Z88.1 Allergy status to other antibiotic agents; Z77.22 Contact with and (suspected) exposure to environmental tobacco smoke (acute) (chronic); Z90.49 Acquired absence of other specified parts of digestive tract; Z98.51 Tubal ligation status
CPT/HCPCS: 80306; 81000; 84703; 99284

== ENCOUNTER 2019-01-25 17:26 | Emergency (ER) | payer MEDICAID, OTHER ==
[~2019-01-25] VITALS: Ht 162.6 cm; Wt 60.8 kg
[~2019-01-25 17:26] MED LIST changes: +SULF1TAB35 PO
--- NOTE | 2019-01-25 17:53 | ED GI ---
General Chief Complaint: Abdominal/GI Problems Stated Complaint: VOMITING Source of Information: Patient, Family Exam Limitations: No Limitations History of Present Illness Date Seen by Provider: Jan 25, 2019 Time Seen by Provider: 17:40 Initial Comments The patient presents to ER by private conveyance with a couple concerns. She thinks she is lactose intolerant because she ate macaroni and cheese for lunch and then had nausea without vomiting. She's also had some loose stools yesterday. Yesterday she had some greasy meat for dinner. She's had no abdominal surgeries. She's not having any abdominal pain now. She's never had her gallbladder worked up. She denies fevers chills or nausea presently. She had upper endoscopy looking for stomach cancer about a year ago but she was told it was normal. She says she's also been trying to gain weight but she can't keep weight on it and she wonders if she has a thyroid disorder. Typically she will follow-up with Dr. Sheth. She denies a history of irritable bowel or inflammatory bowel disease. She is out of her COPD medicine and seizure medicine but she says she does not want take the seizure medicine Trileptal because it made her fall asleep so she has to follow up with her primary care doctor. Allergies and Home Medications Allergies Coded Allergies: clindamycin (Unverified Adverse Reaction, Unknown, 10/21/18) latex (Unverified Adverse Reaction, Unknown, 10/21/18) Home Medications Albuterol Sulfate 1 Puff Puff, 2 PUFF IH Q4H PRN for SHORTNESS OF BREATH 1 PUFF = 90 MCG Prescribed by: GUIDO DAVILA on 01/04/19 0146 Docusate Sodium 100 Mg Capsule, 100 MG PO DAILY Prescribed by: SUKHDEEP MCCULLOUGH on 11/28/18 0544 Ondansetron 4 Mg Tab.rapdis, 4 MG PO Q6H Prescribed by: SUKHDEEP MCCULLOUGH on 10/21/18 2205 Sulfamethoxazole/Trimethoprim 1 Each Tablet, 1 EACH PO BID Prescribed by: JOSE YOO on 01/06/192143 Tramadol HCl 50 Mg Tablet, 50 MG PO Q6H PRN for PAIN Prescribed by: SUKHDEEP MCCULLOUGH on 11/28/18 0542 Patient Home Medication List Home Medication List Reviewed: Yes Review of Systems Review of Systems Constitutional: No chills, No fever, No malaise EENTM: No Blurred Vision, No Double Vision Respiratory: Denies Cough, Denies Shortness of Air Cardiovascular: Denies Chest Pain, Denies Edema Gastrointestinal: Denies Constipated; Diarrhea, Nausea, Vomiting Genitourinary: Denies Discharge, Denies Drainage Musculoskeletal: No back pain, No joint pain Past Pwevgde-Qnnphy-Ahecob Hx Patient Social History Alcohol Use: Regular Use Alcohol Beverage of Choice: Beer Recreational Drug Use: Yes Drug of Choice: METH Smoking Status: Current Everyday Smoker Type Used: Cigars 2nd Hand Smoke Exposure: Yes Recent Hopitalizations: No Immunizations Up To Date Tetanus Booster (TDap): Less than 5yrs Seasonal Allergies Seasonal Allergies: No Past Medical History Surgeries: Yes (C/S) Appendectomy, Section, Tubal Ligation Respiratory: Yes Asthma, COPD Cardiac: No Neurological: Yes (EPILEPSY) Seizure Disorder Genitourinary: No Gastrointestinal: Yes Liver Disease/Jaundice Musculoskeletal: No Endocrine: No HEENT: No Cancer: No Psychosocial: Yes Anxiety, Schizophrenia Integumentary: No Blood Disorders: No Physical Exam Vital Signs Capillary Refill : Height/Weight/BMI Height: 5'4.00" Weight: 136lbs. 0oz. 61.190514ac; 21.09 BMI Method:Stated General Appearance: no apparent distress, other (disheveled) HEENT: PERRL/EOMI, pharynx normal Neck: full range of motion, normal inspection Respiratory: no respiratory distress, no accessory muscle use Cardiovascular: normal peripheral pulses, regular rate, rhythm Gastrointestinal: normal bowel sounds, non tender, soft, no organomegaly, other (negative for Padilla sign or tenderness over McBurney's point.) Progress/Results/Core Measures Progress Progress Note : Time: 17:50 Progress Note We have discussed with a typical diet to avoid if she suspects she is lactose intolerant. With her history of mild right upper quadrant tenderness and normal vital signs I would suspect she might have a gallbladder causing biliary colic however she does not seem to have an acute belly now. We have offered to set her up with an ultrasound outpatient and follow-up with Dr. Sheth. We have also educated her on appropriate diet. We have instructed her that her primary care doctor would manage her thyroid workup. We will provide her with some nausea medication and antacids. Departure Impression Primary Impression: Nausea and vomiting Qualified Codes: R11.2 - Nausea with vomiting, unspecified Additional Impression: Diarrhea Qualified Codes: R19.7 - Diarrhea, unspecified Disposition: 01 HOME, SELF-CARE Condition: Stable Departure-Patient Inst. Decision time for Depature: 17:52 Referrals: CAMILLE SHETH MD (PCP/Family) Primary Care Physician Patient Instructions: Lactose-Controlled Diet Add. Discharge Instructions: To help workup your symptoms an ultrasound of the gallbladder is her next step. You can call [facility] outpatient services on the phone number listed on the order sheet to set up this appointment in the next 1-2 weeks. To control your symptoms I suggest you follow the diet and avoid dairy, greasy meats, spicy food. Eat foods that are high in fiber such as vegetables, starches such as rice, potatoes. Plan to follow up with your doctor the week following your ultrasound to get the results as well as discuss working up your thyroid. Start taking the omeprazole 40 mg once a day for the next 4 weeks to protect your stomach. If you have nausea you can take Zofran and place one tablet under your tongue every 6 hours as needed. If you have intractable pain that does not respond to Tylenol or ibuprofen, nausea that does not respond to Zofran or other worrisome symptoms then you should return to the ER for further evaluation. All discharge instructions reviewed with patient and/or family. Voiced understanding. Scripts Ondansetron (Ondansetron Odt) 4 Mg Tab.rapdis 4 MG PO Q6H PRN for NAUSEA/VOMITING, #8 TAB 0 Refills Prov: MELANIE RODRIGUEZ 01/25/19 Omeprazole (Omeprazole) 40 Mg Capsule. 40 MG PO DAILY for 30 Days, #30 CAP 0 Refills Prov: MELANIE RODRIGUEZ 01/25/19 MELANIE RODRIGUEZ Jan 25, 2019 17:53
[2019-01-25] MEDS ORDERED: OMEP40CA36 PO (17:57)
[2019-01-25] MEDS ORDERED: ONDA4TAB11 PO (17:57)
[2019-01-25 18:07] VITALS: BP 140/73
== END 2019-01-25 18:08 | disposition home or self-care (01) ==
LOC: EDUNIT# 17:26 → ER FS 17:28
DX: R11.2 Nausea with vomiting, unspecified (principal); R19.7 Diarrhea, unspecified; G40.909 Epilepsy, unspecified, not intractable, without status epilepticus; F41.9 Anxiety disorder, unspecified; F20.9 Schizophrenia, unspecified; F17.290 Nicotine dependence, other tobacco product, uncomplicated; Z88.1 Allergy status to other antibiotic agents; Z91.040 Latex allergy status; Z90.49 Acquired absence of other specified parts of digestive tract; Z98.51 Tubal ligation status
CPT/HCPCS: 99282

== ENCOUNTER 2019-03-09 14:55 | Emergency (ER) | payer MEDICAID ==
[~2019-03-09] VITALS: Ht 160 cm; Wt 61.4 kg
[~2019-03-09 14:55] MED LIST changes: +OMEP40CA36 PO
[2019-03-09] MEDS ORDERED: LACTATED RINGERS 1,000 ML IV ONE (15:07)
[2019-03-09 15:14] VITALS: BP_SYST 107; BP_SYST 109; BP_DIAS 71; BP_DIAS 72; BP_DIAS 93
[2019-03-09] MEDS ORDERED: KETOROLAC 30 MG/ML VIAL IVP ONE (15:15)
[2019-03-09] MEDS ORDERED: ONDANSETRON 4 MG/2 ML (SDV) Z0FRAN IVP ONE (15:15)
--- NOTE | 2019-03-09 15:16 | ED Abdominal Pain ---
General Stated Complaint: DIZZINESS Source of Information: Patient Exam Limitations: No Limitations History of Present Illness Date Seen by Provider: Mar 09, 2019 Time Seen by Provider: 15:00 Initial Comments The patient presents to the ER by private conveyance with chief complaint of 2 weeks right lower quadrant abdominal pain, nausea without fever but she's had sweats. She describes the pain as cramping, and going and sharp, 7 out of 10. She's been using Tylenol with minimal relief. Whenever she takes her meds in the morning she says it makes her want to vomit but then she says she's been out of her medications for the past couple weeks as well. She has a history of schizophrenia. She denies any close contacts with similar symptoms. She denies diarrhea discharge or dysuria. She says sometimes she follows with Dr. Sheth but has not been routinely taking her medicines for the past 2 weeks because she has not had the money to pick them up from the pharmacy. She denies a history of abdominal surgeries. She says she does feel dizzy today but she's given a pass out and that got her concerned enough to come in to the ER. She denies any shortness of breath, chest pain, numbness or tingling. Review of her history demonstrates she has a history of methamphetamine use as well as struggles with homelessness. She has COPD and a questionable history of seizures. Allergies and Home Medications Allergies Coded Allergies: clindamycin (Unverified Adverse Reaction, Unknown, 10/21/18) latex (Unverified Adverse Reaction, Unknown, 10/21/18) Home Medications Albuterol Sulfate 1 Puff Puff, 2 PUFF IH Q4H PRN for SHORTNESS OF BREATH 1 PUFF = 90 MCG Prescribed by: GUIDO DAVILA on 01/04/19 0146 Docusate Sodium 100 Mg Capsule, 100 MG PO DAILY Prescribed by: SUKHDEEP MCCULLOUGH on 11/28/18 0544 Omeprazole 40 Mg Capsule.dr, 40 MG PO DAILY Prescribed by: MELANIE RODRIGUEZ on 01/25/19 175 Ondansetron 4 Mg Tab.rapdis, 4 MG PO Q6H Prescribed by: SUKHDEEP MCCULLOUGH on 10/21/18 2205 Ondansetron 4 Mg Tab.rapdis, 4 MG PO Q6H PRN for NAUSEA/VOMITING Prescribed by: MELANIE RODRIGUEZ on 01/25/19 1757 Sulfamethoxazole/Trimethoprim 1 Each Tablet, 1 EACH PO BID Prescribed by: JOSE YOO on 01/06/192143 Tramadol HCl 50 Mg Tablet, 50 MG PO Q6H PRN for PAIN Prescribed by: SUKHDEEP MCCULLOUGH on 11/28/18 0544 Patient Home Medication List Home Medication List Reviewed: Yes Review of Systems Review of Systems Constitutional: No chills, No diaphoresis EENTM: No Blurred Vision, No Double Vision Respiratory: Denies Cough, Denies Orthopnea Cardiovascular: See HPI; Denies Chest Pain, Denies Edema, Denies Irregular H eart Rate, Denies Lightheadedness, Denies Palpitations Gastrointestinal: Denies Abdomen Distended; Abdominal Pain; Denies Blood Streaked Stools, Denies Constipated, Denies Diarrhea; Nausea, Poor Fluid Intake, Vomiting Genitourinary: Denies Burning, Denies Discharge Musculoskeletal: No back pain, No joint swelling Past Zxhelll-Ieiwjb-Occqsx Hx Patient Social History Alcohol Use: Occasionally Uses Alcohol Beverage of Choice: Beer Recreational Drug Use: Yes Drug of Choice: METH Smoking Status: Current Everyday Smoker Type Used: Cigars 2nd Hand Smoke Exposure: Yes Recent Hopitalizations: No Immunizations Up To Date Tetanus Booster (TDap): Less than 5yrs Seasonal Allergies Seasonal Allergies: No Past Medical History Surgeries: Yes (C/S) Appendectomy, Section, Tubal Ligation Respiratory: Yes Asthma, COPD Cardiac: No Neurological: Yes (EPILEPSY) Seizure Disorder Genitourinary: No Gastrointestinal: Yes Liver Disease/Jaundice Musculoskeletal: No Endocrine: No HEENT: No Cancer: No Psychosocial: Yes Anxiety, Schizophrenia Integumentary: No Blood Disorders: No Physical Exam Vital Signs Vital Signs - First Documented 03/09/19 15:11 Temp 36.2 Pulse 90 Resp 18 B/P (MAP) 133/65 (87) Pulse Ox 97 Capillary Refill : Height/Weight/BMI Height: 5'4.00" Weight: 134lbs. 0oz. 60.868736us; 21.09 BMI Method:Stated General Appearance: mild distress, thin HEENT: PERRL/EOMI, pharynx normal (mildly dry mucosa) Neck: full range of motion, normal inspection Respiratory: no respiratory distress, no accessory muscle use Cardiovascular: normal peripheral pulses, regular rate, rhythm Peripheral Pulses: 2+ Dorsalis Pedis (R), 2+ Left Dors-Pedis (L) Gastrointestinal: normal bowel sounds, soft; No guarding, No rebound; tenderness (Bilat Lower quads and suprapubic), other (negative for mesenteric signs, psoas sign, Rovsing sign) Extremities: normal range of motion, normal capillary refill Neurologic/Psychiatric: alert, normal mood/affect, oriented x 3 Skin: normal color, warm/dry Progress/Results/Core Measures Results/Orders Lab Results Laboratory Tests Test 03/09/19 15:17 03/09/19 15:27 Range/Units White Blood Count 7.9 4.3-11.0 10^3/uL Red Blood Count 3.68 L 4.35-5.85 10^6/uL Hemoglobin 11.4 L 11.5-16.0 G/DL Hematocrit 34 L 35-52 % Mean Corpuscular Volume 94 80-99 FL Mean Corpuscular Hemoglobin 31 25-34 PG Mean Corpuscular Hemoglobin Concent 33 32-36 G/DL Red Cell Distribution Width 15.5 H 10.0-14.5 % Platelet Count 409 H 130-400 10^3/uL Mean Platelet Volume 9.4 7.4-10.4 FL Neutrophils (%) (Auto) 71 42-75 % Lymphocytes (%) (Auto) 22 12-44 % Monocytes (%) (Auto) 6 0-12 % Eosinophils (%) (Auto) 0 0-10 % Basophils (%) (Auto) 0 0-10 % Neutrophils # (Auto) 5.6 1.8-7.8 X 10^3 Lymphocytes # (Auto) 1.7 1.0-4.0 X 10^3 Monocytes # (Auto) 0.5 0.0-1.0 X 10^3 Eosinophils # (Auto) 0.0 0.0-0.3 10^3/uL Basophils # (Auto) 0.0 0.0-0.1 10^3/uL Sodium Level 141 135-145 MMOL/L Potassium Level 3.8 3.6-5.0 MMOL/L Chloride Level 103 98-107 MMOL/L Carbon Dioxide Level 26 21-32 MMOL/L Anion Gap 12 5-14 MMOL/L Blood Urea Nitrogen 6 L 7-18 MG/DL Creatinine 0.64 0.60-1.30 MG/DL Estimat Glomerular Filtration Rate > 60 BUN/Creatinine Ratio 9 Glucose Level 105 70-105 MG/DL Calcium Level 9.0 8.5-10.1 MG/DL Corrected Calcium 8.6 8.5-10.1 MG/DL Total Bilirubin 0.2 0.1-1.0 MG/DL Aspartate Amino Transf (AST/SGOT) 17 5-34 U/L Alanine Aminotransferase (ALT/SGPT) 11 0-55 U/L Alkaline Phosphatase 79 40-136 U/L Pro-B-Type Natriuretic Peptide 90.3 H <75.0 PG/ML Total Protein 7.0 6.4-8.2 GM/DL Albumin 4.5 3.2-4.5 GM/DL Serum Alcohol < 10 <10 MG/DL Urine Color YELLOW Urine Clarity CLEAR Urine pH 6.0 5-9 Urine Specific [place] 1.015 L 1.016-1.022 Urine Protein NEGATIVE NEGATIVE Urine Glucose (UA) NEGATIVE NEGATIVE Urine Ketones NEGATIVE NEGATIVE Urine Nitrite NEGATIVE NEGATIVE Urine Bilirubin NEGATIVE NEGATIVE Urine Urobilinogen 0.2 NORMAL MG/DL Urine Leukocyte Esterase NEGATIVE NEGATIVE Urine RBC (Auto) NEGATIVE NEGATIVE Urine RBC NONE /HPF Urine WBC RARE /HPF Urine Squamous Epithelial Cells 0-2 /HPF Urine Crystals NONE /LPF Urine Bacteria TRACE /HPF Urine Casts NONE /LPF Urine Mucus SMALL H /LPF Urine Culture Indicated NO Urine Opiates Screen NEGATIVE NEGATIVE Urine Oxycodone Screen NEGATIVE NEGATIVE Urine Methadone Screen NEGATIVE NEGATIVE Urine Propoxyphene Screen NEGATIVE NEGATIVE Urine Barbiturates Screen NEGATIVE NEGATIVE Ur Tricyclic Antidepressants Screen NEGATIVE NEGATIVE Urine Phencyclidine Screen NEGATIVE NEGATIVE Urine Amphetamines Screen NEGATIVE NEGATIVE Urine Methamphetamines Screen NEGATIVE NEGATIVE Urine Benzodiazepines Screen NEGATIVE NEGATIVE Urine Cocaine Screen NEGATIVE NEGATIVE Urine Cannabinoids Screen NEGATIVE NEGATIVE My Orders Orders - MICHAEL,MELANIE J Ua Culture If Indicated (03/09/19 14:59) Drug Screen Stat (Urine) (03/09/19 14:59) Urine Bedside (03/09/19 14:59) Cbc With Automated Diff (03/09/19 15:07) Comprehensive Metabolic Panel (03/09/19 15:07) Ekg Tracing (03/09/19 15:07) Orthostatic Vital Signs (Adult (03/09/19 15:07) Probnp Fs (03/09/19 15:07) Ed Iv/Invasive Line Start (03/09/19 15:07) Lactated Ringers (Lr 1000 Ml Iv Solution (03/09/19 15:07) Alcohol (03/09/19 15:07) Ketorolac Injection (Toradol Injection) (03/09/19 15:15) Ondansetron Injection (Zofran Injectio (03/09/19 15:15) Ct Abdomen/Pelvis W (03/09/19 15:21) Iohexol Injection (Omnipaque 350 Mg/Ml 1 (03/09/19 15:30) Received Contrast (Hold Metformin- Contr (03/09/19 15:30) Sodium Chloride Flush (Catheter Flush Sy (03/09/19 15:30) Ns (Ivpb) (Sodium Chloride 0.9% Ivpb Bag (03/09/19 15:30) Medications Given in ED Current Medications Medications Dose Ordered Sig/Anabel Route Start Time Stop Time Status Last Admin Dose Admin Iohexol 100 ml ONCE ONCE IV 03/09/19 15:30 03/09/19 15:31 DC 03/09/19 15:43 100 ML Ketorolac Tromethamine 30 mg ONCE ONCE IVP 03/09/19 15:15 03/09/19 15:16 DC 03/09/19 15:25 30 MG Lactated Ringer's 1,000 ml @ 0 mls/hr Q0M ONCE IV 03/09/19 15:07 03/09/19 15:11 DC 03/09/19 15:25 1,000 MLS/HR Ondansetron HCl 4 mg ONCE ONCE IVP 03/09/19 15:15 03/09/19 15:16 DC 03/09/19 15:25 4 MG Sodium Chloride 10 ml NEEDED PRN IV 03/09/19 15:30 03/09/19 15:43 10 ML Sodium Chloride 100 ml ONCE ONCE IV 03/09/19 15:30 03/09/19 15:31 DC 03/09/19 15:43 80 ML Vital Signs/I&O 03/09/19 03/09/19 15:11 15:14 Temp 36.2 Pulse 90 93 104 112 Resp 18 B/P (MAP) 133/65 (87) 109/93 (98) 107/72 (84) 109/71 (84) Pulse Ox 97 Progress Progress Note #1: Time: 15:15 Progress Note UTI versus colitis/appendicitis versus PID versus ovarian cyst versus other? Planned obtain urine and labs. Orthostatic vital signs and EKG. We'll obtain a BNP since she's climbing that she's feeling near syncopal but I suspect that may be related to dehydration since she's had nausea vomiting and what sounds like gastroenteritis lately. It's difficult to get a clear history from her due to her background history of schizophrenia. History reveals she presented one month ago with same story and situation of being off of her meds at that time. At that time she had ultrasound of her gallbladder set up outpatient which she did not pursue. It's difficult to know if these complaints are of the same from last month since there in a different part of her abdomen however since she is unlikely to adhere to outpatient regimens and does not seem to follow up with primary care very frequently we will plan to obtain IV contrasted CT of her abdomen and pelvis today. We'll give her a liter fluids. Plan to check alcohol and drug level. She is not having any tenderness in her right upper quadrant or over her pancreas epigastric region. Zofran and Toradol for her symptoms currently. Progress Note #2: Time: 16:05 Progress Note Unremarkable labs, EKG, imaging. We'll provide her with some nausea medicine prescription and sent her back to her primary care doctor tomorrow. Initial ECG Impression Date: Mar 09, 2019 Initial ECG Impression Time: 15:17 Initial ECG Rate: 92 Initial ECG Rhythm: Normal Sinus Initial ECG Intervals: QT (489) Initial ECG Impression: Nonspecific Changes Initial ECG Comparisson: Unchanged Comment Normal sinus rhythm with stable finding of a typical left bundle branch block. Negative for clinically significant ST elevation or depression. 0 points Sgarbossa's Criteria. Diagnostic Imaging Diagonstic Imaging: CT (with IV contrast) Plain Films/CT/US/NM/MRI: abdomen, pelvis Comments NAME: PETAR PASTOR [facility] REC#: [id number] PT STATUS: REG ER : 1980 PHYSICIAN: MELANIE RODRIGUEZ MD ADMIT DATE: 03/09/19/ER FS Draft Date of Exam:03/09/19 CT ABDOMEN/PELVIS W PROCEDURE: CT abdomen and pelvis with contrast. TECHNIQUE: Multiple contiguous axial images were obtained through the abdomen and pelvis after administration of intravenous contrast. Auto Exposure Controls were utilized during the CT exam to meet ALARA standards for radiation dose reduction. INDICATION: Dizziness with low abdominal pain and cramping. FINDINGS: The visualized lung bases demonstrate no focal infiltrate or evidence of consolidation. There is no pleural or pericardial effusion. The liver demonstrates no evidence of a focal intrahepatic abnormality. The gallbladder is contracted. There is no biliary dilatation or radiodense gallstone. The portal veins are patent. Spleen is normal in size. Pancreas is unremarkable. There is no adrenal mass. The kidneys enhance normally and appear nonobstructed. Small and large bowel appear normal in caliber without evidence of obstruction. No abnormal bowel thickening is demonstrated. There is no focal inflammation evident within the right lower quadrant. There are no findings of free air or free fluid. There is no evidence of an abscess. The urinary bladder, uterus, and adnexal regions are unremarkable by CT. The aorta is normal in caliber. There is no acute or suspicious osseous abnormality within the lumbar spine or pelvis. IMPRESSION: 1. No CT evidence of an acute inflammatory or obstructive process within the abdomen or pelvis. 2. No evidence of bowel obstruction. There is no focal information within the right lower quadrant to suggest appendicitis. 3. There are no findings of free air, free fluid, or abscess. There is no focal inflammation evident within the omentum or mesentery. Dictated on workstation # [id number] Dict: 03/09/19 1552 Trans: 03/09/19 1602 [id number] Interpreted by: ELLE TOUSSAINT MD Electronically signed by: Reviewed: Reviewed by Me Departure Impression Primary Impression: Gastroenteritis Disposition: 01 HOME, SELF-CARE Condition: Stable Departure-Patient Inst. Decision time for Depature: 16:06 Referrals: CAMILLE SHETH MD (PCP/Family) Primary Care Physician Patient Instructions: [id number] Add. Discharge Instructions: If you have nausea use one tablet of Zofran every 6 hours under the tongue as needed. If you have pain use ibuprofen 800 mg every 8 hours in addition to Tylenol 1000 mg every 8 hours. Start taking the omeprazole 40 mg daily for the next 2 weeks. Follow-up with primary care doctor this week. Scripts Omeprazole (Omeprazole) 40 Mg Capsule.dr 40 MG PO DAILY for 14 Days, #14 CAP 0 Refills Prov: MELANIE RODRIGUEZ 03/09/19 Ondansetron (Ondansetron Odt) 4 Mg Tab.rapdis 4 MG PO Q6H PRN for NAUSEA/VOMITING, #8 TAB 0 Refills Prov: MELANIE RODRIGUEZ 03/09/19 MELANIE RODRIGUEZ Mar 09, 2019 15:16
[2019-03-09 15:27] LABS: BASOPHILS % (AUTO) 0 % (0-10); EOSINOPHILS % (AUTO) 0 % (0-10); HEMATOCRIT 34 % (35-52); HEMOGLOBIN 11.4 G/DL (11.5-16.0); LYMPHOCYTES # (AUTO) 1.7 X 10^3 (1.0-4.0); LYMPHOCYTES % (AUTO) 22 % (12-44); MEAN CORPUSCULAR HEMOGLOBIN 31 PG (25-34); MEAN CORPUSCULAR HGB CONC 33 G/DL (32-36); MEAN CORPUSCULAR VOLUME 94 FL (80-99); MEAN PLATELET VOLUME 9.4 FL (7.4-10.4); MONOCYTES # (AUTO) 0.5 X 10^3 (0.0-1.0); MONOCYTES % (AUTO) 6 % (0-12); NEUTROPHILS # (AUTO) 5.6 X 10^3 (1.8-7.8); NEUTROPHILS % (AUTO) 71 % (42-75); PLATELET COUNT 409 10^3/uL (130-400); RED CELL DISTRIBUTION WIDTH 15.5 % (10.0-14.5); WHITE BLOOD COUNT 7.9 10^3/uL (4.3-11.0)
[2019-03-09] MEDS ORDERED: IOHEXOL 350 MG/ML 100 ML (OMNIPAQUE 350) VIAL IV ONE (15:30)
[2019-03-09] MEDS ORDERED: HOLD METFORMIN - RECEIVED CONTRAST 20 ML VIAL IV SCH (15:30)
[2019-03-09] MEDS ORDERED: CATHETER FLUSH 10 ML SYR IV PRN (15:30)
[2019-03-09] MEDS ORDERED: NS 100 ML (IVPB) BAG IV ONE (15:30)
[2019-03-09 15:41] LABS: BILIRUBIN,URINE NEGATIVE (NEGATIVE); CLARITY,URINE CLEAR; COLOR,URINE YELLOW; GLUCOSE, URINE (UA) NEGATIVE (NEGATIVE); KETONES,URINE NEGATIVE (NEGATIVE); LEUKOCYTE ESTERASE ,URINE NEGATIVE (NEGATIVE); NITRITE,URINE NEGATIVE (NEGATIVE); PROTEIN,URINE NEGATIVE (NEGATIVE); WBC,URINE RARE /HPF
[2019-03-09 15:42] LABS: BACTERIA,URINE TRACE /HPF; SQUAMOUS EPITHELIAL CELL,UR 0-2 /HPF
[2019-03-09 15:50] LABS: AMPHETAMINE SCREEN, URINE NEGATIVE (NEGATIVE); BARBITURATE SCREEN URINE NEGATIVE (NEGATIVE); BENZODIAZEPINES SCREEN URINE NEGATIVE (NEGATIVE); CANNABINOID SCREEN, URINE NEGATIVE (NEGATIVE); COCAINE SCREEN URINE NEGATIVE (NEGATIVE); METHADONE STAT NEGATIVE (NEGATIVE); METHAMPHETAMINE SCREEN URINE S NEGATIVE (NEGATIVE); OPIATE SCREEN URINE NEGATIVE (NEGATIVE); OXYCODONE STAT NEGATIVE (NEGATIVE); PROPOXYPHENE STAT NEGATIVE (NEGATIVE); TRICYCLIC ANTIDEPRESSANTS SCRE NEGATIVE (NEGATIVE)
[2019-03-09 15:58] LABS: BUN/CREATININE RATIO 9; CARBON DIOXIDE 26 MMOL/L (21-32); CHLORIDE 103 MMOL/L (98-107); CREATININE SERUM 0.64 MG/DL (0.60-1.30); GFR ESTIMATED > 60; POTASSIUM 3.8 MMOL/L (3.6-5.0); SODIUM 141 MMOL/L (135-145)
[2019-03-09 15:59] LABS: ALANINE AMINOTRANSFERASE 11 U/L (0-55); ALBUMIN 4.5 GM/DL (3.2-4.5); ALKALINE PHOSPHATASE 79 U/L (40-136); BILIRUBIN,TOTAL 0.2 MG/DL (0.1-1.0); GLUCOSE 105 MG/DL (70-105)
--- NOTE | 2019-03-09 16:02 | Diagnostic Imaging Report ---
PROCEDURE: CT abdomen and pelvis with contrast. TECHNIQUE: Multiple contiguous axial images were obtained through the abdomen and pelvis after administration of intravenous contrast. Auto Exposure Controls were utilized during the CT exam to meet ALARA standards for radiation dose reduction. INDICATION: Dizziness with low abdominal pain and cramping. FINDINGS: The visualized lung bases demonstrate no focal infiltrate or evidence of consolidation. There is no pleural or pericardial effusion. The liver demonstrates no evidence of a focal intrahepatic abnormality. The gallbladder is contracted. There is no biliary dilatation or radiodense gallstone. The portal veins are patent. Spleen is normal in size. Pancreas is unremarkable. There is no adrenal mass. The kidneys enhance normally and appear nonobstructed. Small and large bowel appear normal in caliber without evidence of obstruction. No abnormal bowel thickening is demonstrated. There is no focal inflammation evident within the right lower quadrant. There are no findings of free air or free fluid. There is no evidence of an abscess. The urinary bladder, uterus, and adnexal regions are unremarkable by CT. The aorta is normal in caliber. There is no acute or suspicious osseous abnormality within the lumbar spine or pelvis. IMPRESSION: 1. No CT evidence of an acute inflammatory or obstructive process within the abdomen or pelvis. 2. No evidence of bowel obstruction. There is no focal inflammation within the right lower quadrant to suggest appendicitis. 3. There are no findings of free air, free fluid, or abscess. There is no focal inflammation evident within the omentum or mesentery. Dictated by: Dictated on workstation # [id number]
[2019-03-09] MEDS ORDERED: ONDA4TAB11 PO (16:08)
[2019-03-09] MEDS ORDERED: OMEP40CA36 PO (16:08)
[2019-03-09 16:09] VITALS: BP 120/50
== END 2019-03-09 16:12 | disposition home or self-care (01) ==
LOC: EDUNIT# 14:55 → ER FS 14:56
DX: K52.9 Noninfective gastroenteritis and colitis, unspecified (principal); J44.9 Chronic obstructive pulmonary disease, unspecified; G40.909 Epilepsy, unspecified, not intractable, without status epilepticus; F41.9 Anxiety disorder, unspecified; F20.9 Schizophrenia, unspecified; F17.290 Nicotine dependence, other tobacco product, uncomplicated; Z88.1 Allergy status to other antibiotic agents; Z91.040 Latex allergy status; Z90.49 Acquired absence of other specified parts of digestive tract; Z98.51 Tubal ligation status
CPT/HCPCS: 36415; 74177; 80053; 80306; 80320; 81000; 83880; 84703; 85025; 93005

== ENCOUNTER → 2019-03-17 | Outpatient (CLI) | payer MEDICAID ==
--- NOTE | 2019-03-17 10:23 | Diagnostic Imaging Report ---
PATIENT HISTORY: PELVIC PAIN. TECHNIQUE: Frontal view of the pelvis. Frontal and lateral views of the bilateral hips COMPARISON: CT from 03/09/2019 FINDINGS: No acute fracture or dislocation is seen in the pelvis or bilateral hips. Alignment appears normal. Joint spaces are generally preserved. There are mild degenerative changes at the pubic symphysis. IMPRESSION: No acute osseous abnormality is seen in the pelvis. Dictated by: Dictated on workstation # [id number]
== END ==
LOC: RAD FS 09:27
PROVIDERS: ATTEND Family Medicine
DX: R10.2 Pelvic and perineal pain (principal)
CPT/HCPCS: 73521

== ENCOUNTER 2019-04-30 20:56 | Emergency (ER) | payer MEDICAID ==
[~2019-04-30] VITALS: Ht 161 cm; Wt 64.5 kg
[2019-04-30 21:12] VITALS: BP 137/76
[2019-04-30 21:30] LABS: BACTERIA,URINE TRACE /HPF; BILIRUBIN,URINE NEGATIVE (NEGATIVE); CLARITY,URINE CLEAR; COLOR,URINE YELLOW; GLUCOSE, URINE (UA) NEGATIVE (NEGATIVE); KETONES,URINE NEGATIVE (NEGATIVE); LEUKOCYTE ESTERASE ,URINE TRACE (NEGATIVE); NITRITE,URINE NEGATIVE (NEGATIVE); PROTEIN,URINE NEGATIVE (NEGATIVE); WBC,URINE 25-50 /HPF
[2019-04-30] MEDS ORDERED: PROMETHAZINE INJ 25 MG/ML (PHENERGAN) AMP IM ONE (21:30)
--- NOTE | 2019-04-30 21:31 | ED GI ---
General Chief Complaint: Abdominal/GI Problems Stated Complaint: NAUSEA/VOMITTING Nursing Triage Note: pt states vomiting and back pain Sepsis Screen: No Definite Risk Source of Information: Patient Exam Limitations: No Limitations History of Present Illness Date Seen by Provider: Apr 30, 2019 Time Seen by Provider: 21:28 Initial Comments Patient complains of nausea and vomiting all day. She estimates she is vomited 5 times. No fevers or chills. Complains of crampy epigastric pain. No diarrhea. Allergies and Home Medications Allergies Coded Allergies: clindamycin (Unverified Adverse Reaction, Unknown, 10/21/18) latex (Unverified Adverse Reaction, Unknown, 10/21/18) Home Medications Albuterol Sulfate 1 Puff Puff, 2 PUFF IH Q4H PRN for SHORTNESS OF BREATH 1 PUFF = 90 MCG Prescribed by: GUIDO DAVILA on 01/04/19 0146 Docusate Sodium 100 Mg Capsule, 100 MG PO DAILY Prescribed by: SUKHDEEP MCCULLOUGH on 11/28/18 0544 Omeprazole 40 Mg Capsule.dr, 40 MG PO DAILY Prescribed by: MELANIE RODRIGUEZ on 01/25/19 175 Omeprazole 40 Mg Capsule.dr, 40 MG PO DAILY Prescribed by: MELANIE RODRIGUEZ on 03/09/19 1608 Ondansetron 4 Mg Tab.rapdis, 4 MG PO Q6H Prescribed by: SUKHDEEP MCCULLOUGH on 10/21/18 2205 Ondansetron 4 Mg Tab.rapdis, 4 MG PO Q6H PRN for NAUSEA/VOMITING Prescribed by: MELANIE RODRIGUEZ on 01/25/19 1757 Ondansetron 4 Mg Tab.rapdis, 4 MG PO Q6H PRN for NAUSEA/VOMITING Prescribed by: MELANIE RODRIGUEZ on 03/09/19 1608 Sulfamethoxazole/Trimethoprim 1 Each Tablet, 1 EACH PO BID Prescribed by: JOSE YOO on 01/06/19 2144 Tramadol HCl 50 Mg Tablet, 50 MG PO Q6H PRN for PAIN Prescribed by: SUKHDEEP MCCULLOUGH on 11/28/18 0544 Patient Home Medication List Home Medication List Reviewed: Yes Review of Systems Review of Systems Constitutional: no symptoms reported Respiratory: No Symptoms Reported Cardiovascular: No Symptoms Reported Gastrointestinal: Nausea, Vomiting All Other Systems Reviewed Negative Unless Noted: Yes Past Rjzwxze-Gxarnu-Xhlyey Hx Patient Social History Alcohol Use: Denies Use Number of Drinks Today: AA Alcohol Beverage of Choice: Beer Recreational Drug Use: Yes Drug of Choice: METH Type Used: Cigars 2nd Hand Smoke Exposure: Yes Recent Foreign Travel: No Contact w/Someone Who Travel: No Recent Infectious Disease Expo: No Recent Hopitalizations: No Physical Abuse: No Sexual Abuse: No Mistreated: No Fear: No Immunizations Up To Date Tetanus Booster (TDap): Less than 5yrs Seasonal Allergies Seasonal Allergies: No Past Medical History Surgeries: Yes (C/S) Appendectomy, Section, Tubal Ligation Respiratory: Yes Asthma, COPD Cardiac: No Neurological: Yes (EPILEPSY) Seizure Disorder Genitourinary: No Gastrointestinal: Yes Liver Disease/Jaundice Musculoskeletal: No Endocrine: No HEENT: No Cancer: No Psychosocial: Yes Anxiety, Schizophrenia Integumentary: No Blood Disorders: No Physical Exam Vital Signs Vital Signs - First Documented 04/30/19 21:12 Temp 36.8 Pulse 115 Resp 20 B/P (MAP) 137/76 (96) Pulse Ox 99 O2 Delivery Room Air Capillary Refill : Less Than 3 Seconds Height/Weight/BMI Height: 5'4.00" Weight: 134lbs. 0oz. 60.213578wj; 24.00 BMI Method:Stated General Appearance: WD/WN, no apparent distress HEENT: pharynx normal (moist mucous membranes) Neck: supple Respiratory: lungs clear, normal breath sounds Cardiovascular: regular rate, rhythm Gastrointestinal: soft Extremities: normal inspection Back: normal inspection, no CVA tenderness Neurologic/Psychiatric: alert, normal mood/affect Skin: normal color, warm/dry Progress/Results/Core Measures Results/Orders Lab Results Laboratory Tests Test 04/30/19 21:15 04/30/19 21:20 Range/Units Glucometer 110 70-110 MG/DL Urine Color YELLOW Urine Clarity CLEAR Urine pH 6.0 5-9 Urine Specific [place] <=1.005 1.016-1.022 Urine Protein NEGATIVE NEGATIVE Urine Glucose (UA) NEGATIVE NEGATIVE Urine Ketones NEGATIVE NEGATIVE Urine Nitrite NEGATIVE NEGATIVE Urine Bilirubin NEGATIVE NEGATIVE Urine Urobilinogen 0.2 < = 1.0 MG/DL Urine Leukocyte Esterase TRACE NEGATIVE Urine RBC (Auto) NEGATIVE NEGATIVE Urine RBC NONE /HPF Urine WBC 25-50 H /HPF Urine Squamous Epithelial Cells 10-25 H /HPF Urine Crystals NONE /LPF Urine Bacteria TRACE /HPF Urine Casts NONE /LPF Urine Mucus NEGATIVE /LPF Urine Culture Indicated YES Urine Test NEGATIVE NEGATIVE My Orders Orders - RIYA RIOS MD Urinalysis (04/30/19 21:08) Hcg,Qualitative Urine (04/30/19 21:08) Accucheck Stat ONCE (04/30/19 21:10) Promethazine Injection (Phenergan Injec (04/30/19 21:30) Urine Culture (04/30/19 21:20) Medications Given in ED Current Medications Medications Dose Ordered Sig/Anabel Route Start Time Stop Time Status Last Admin Dose Admin Promethazine HCl 50 mg ONCE ONCE IM 04/30/19 21:30 04/30/19 21:31 DC 04/30/19 21:32 50 MG Vital Signs/I&O 04/30/19 21:12 Temp 36.8 Pulse 115 Resp 20 B/P (MAP) 137/76 (96) Pulse Ox 99 O2 Delivery Room Air Blood Pressure Mean: 96 POS FSBG Bedside Testing Finger Stick Blood Glucose: 110 Departure Impression Primary Impression: Nausea and vomiting Additional Impression: Urinary tract infection Disposition: 01 HOME, SELF-CARE Condition: Stable Departure-Patient Inst. Decision time for Depature: 21:56 Referrals: CAMILLE SHETH MD (PCP/Family) Primary Care Physician Patient Instructions: Nausea and Vomiting, Adult Add. Discharge Instructions: Clear liquids for next 24 hours. Tylenol or ibuprofen for pain. All discharge instructions reviewed with patient and/or family. Voiced understanding. Scripts Sulfamethoxazole/Trimethoprim (Bactrim Ds Tablet) 1 Each Tablet 1 EACH PO BID, #14 TAB Prov: RIYA RIOS MD 04/30/19 RIYA RIOS MD Apr 30, 2019 21:30 POS
[2019-04-30] MEDS ORDERED: SULF1TAB35 PO (21:56)
[2019-04-30] MEDS ORDERED: TRIM/SULFAMETH 160/800 (SEPTRA DS) TAB PO ONE (22:00)
== END 2019-04-30 22:04 | disposition home or self-care (01) ==
LOC: EDUNIT# 20:56 → ER FS 20:59
DX: N39.0 Urinary tract infection, site not specified (principal); J44.9 Chronic obstructive pulmonary disease, unspecified; G40.909 Epilepsy, unspecified, not intractable, without status epilepticus; F41.9 Anxiety disorder, unspecified; F20.9 Schizophrenia, unspecified; Z88.1 Allergy status to other antibiotic agents; Z91.040 Latex allergy status; Z77.22 Contact with and (suspected) exposure to environmental tobacco smoke (acute) (chronic); Z90.49 Acquired absence of other specified parts of digestive tract; Z98.51 Tubal ligation status
CPT/HCPCS: 81000; 82962; 84703; 87088; 96372

== ENCOUNTER 2019-05-16 19:52 | Emergency (ER) | payer MEDICAID ==
[~2019-05-16] VITALS: Ht 160 cm; Wt 63.0 kg
[2019-05-16] MEDS ORDERED: AZITHROMYCIN 250 MG TAB (ZITHROMAX) PO STA (20:19)
[2019-05-16] MEDS ORDERED: cefTRIAXone 1,000 MG/2.86 ml vial (IM ONLY) IM STA (20:19)
--- NOTE | 2019-05-16 20:21 | ED GU-Female ---
General Chief Complaint: [employer] Stated Complaint: POSSIBLE STD Nursing Triage Note: PT STATES SHE WAS TESTED FOR STDS IN THE CLINIC RECENTLY AND SHOULD GET THE RESULTS THIS COMING SUNDAY. PT STATES HER BOYFRIEND TOLD HER HE HAS CHLAMYDIA SO SHE CAME TO THE ED TO GET TREATED. Nursing Sepsis Screen: No Definite Risk Source: patient History of Present Illness Date Seen by Provider: May 16, 2019 Time Seen by Provider: 19:59 Initial Comments 38-year-old female presenting with complaints of burning pain with urination. She states that she was seen in this test week in the clinic and had STI testing. However her boyfriend today that he was positive for chlamydia. She came in [facility] to get treatment for this. She was concerned that she may also have gonorrhea because her daughter had similar symptoms and had gonorrhea recently. She also has been having multiple other symptoms of cough and weight gain as well as abdominal bloating. She states that the clinic is working up these chronic issues for her. Allergies and Home Medications Allergies Coded Allergies: clindamycin (Unverified Adverse Reaction, Unknown, 10/21/18) latex (Unverified Adverse Reaction, Unknown, 10/21/18) Home Medications Albuterol Sulfate 1 Puff Puff, 2 PUFF IH Q4H PRN for SHORTNESS OF BREATH 1 PUFF = 90 MCG Prescribed by: GUIDO DAVILA on 01/04/19 0146 Ciprofloxacin HCl 500 Mg Tablet, 500 MG PO BID Prescribed by: JOSE YOO on 05/16/192051 Docusate Sodium 100 Mg Capsule, 100 MG PO DAILY Prescribed by: SUKHDEEP MCCULLOUGH on 11/28/18 0544 Omeprazole 40 Mg Capsule., 40 MG PO DAILY Prescribed by: MELANIE RODRIGUEZ on 01/25/19 175 Omeprazole 40 Mg Capsule.dr, 40 MG PO DAILY Prescribed by: MELANIE RODRIGUEZ on 03/09/19 1608 Ondansetron 4 Mg Tab.rapdis, 4 MG PO Q6H Prescribed by: SUKHDEEP MCCULLOUGH on 10/21/185 Ondansetron 4 Mg Tab.rapdis, 4 MG PO Q6H PRN for NAUSEA/VOMITING Prescribed by: MELANIE RODRIGUEZ on 01/25/19 175 Ondansetron 4 Mg Tab.rapdis, 4 MG PO Q6H PRN for NAUSEA/VOMITING Prescribed by: MELANIE RODRIGUEZ on 03/09/19 1608 Sulfamethoxazole/Trimethoprim 1 Each Tablet, 1 EACH PO BID Prescribed by: JOSE YOO on 01/06/19 2144 Sulfamethoxazole/Trimethoprim 1 Each Tablet, 1 EACH PO BID Prescribed by: RIYA RIOS on 04/30/19 215 Tramadol HCl 50 Mg Tablet, 50 MG PO Q6H PRN for PAIN Prescribed by: SUKHDEEP MCCULLOUGH on 11/28/18 0568 Patient Home Medication List Home Medication List Reviewed: Yes Review of Systems Review of Systems Constitutional: chills, fever (subjective), malaise EENTM: dental problems (chronic bad teeth from chronic use of methamphetamines), hoarseness, nose congestion Respiratory: cough, wheezing (intermittent wheezing) Cardiovascular: No chest pain Gastrointestinal: abdominal pain (having some bloating and gas pains); No nausea, No vomiting Genitourinary: dysuria, frequency Musculoskeletal: no symptoms reported Skin: no symptoms reported Psychiatric/Neurological: Anxiety Past [id number]-Mzpvtn-Vmaouw Hx Past Med/Social Hx: Reviewed Nursing Past Med/Soc Hx Patient Social History Alcohol Use: Denies Use Alcohol Beverage of Choice: Beer Recreational Drug Use: No Drug of Choice: METH Smoking Status: Current Everyday Smoker Type Used: Cigarettes 2nd Hand Smoke Exposure: No Recent Foreign Travel: No Contact w/Someone Who Travel: No Recent Infectious Disease Expo: No Recent Hopitalizations: No Physical Abuse: No Sexual Abuse: No Mistreated: No Immunizations Up To Date Tetanus Booster (TDap): Less than 5yrs Seasonal Allergies Seasonal Allergies: No Past Medical History Surgeries: Yes (C/S) Appendectomy, Section, Tubal Ligation Respiratory: Yes Asthma, COPD Cardiac: No Neurological: Yes (EPILEPSY) Seizure Disorder Genitourinary: No Gastrointestinal: Yes Liver Disease/Jaundice Musculoskeletal: No Endocrine: No HEENT: No Cancer: No Psychosocial: Yes Anxiety, Schizophrenia Integumentary: No Blood Disorders: No Physical Exam Vital Signs Vital Signs - First Documented 05/16/19 19:56 Temp 36.4 Pulse 108 Resp 18 B/P (MAP) 132/66 (88) Pulse Ox 99 O2 Delivery Room Air Capillary Refill : Less Than 3 Seconds Height, Weight, BMI Height: 5'4.00" Weight: 134lbs. 0oz. [id number]; 24.00 BMI Method:Stated General Appearance: mild distress, other (anxious) HEENT: other (widespread dental decay) Cardiovascular: normal peripheral pulses, regular rate, rhythm Respiratory: chest non-tender, decreased breath sounds, wheezing Gastrointestinal: normal bowel sounds, non tender, soft Neurologic/Psychiatric: alert, oriented x 3, other (patient is anxious and has a hard time sitting still) Skin: normal color, warm/dry Progress/Results/Core Measures Suspected Sepsis Recent Fever Within 48 Hours: No Infection Criteria Present: None New/Unexplained Altered Menta: No Sepsis Screen: No Definite Risk SIRS Temperature: Pulse: 108 Respiratory Rate: 18 Blood Pressure 132 /66 Mean: 88 Results/Orders Lab Results Laboratory Tests Test 05/16/19 20:15 Range/Units Urine Color YELLOW Urine Clarity CLEAR Urine pH 6.0 5-9 Urine Specific [place] 1.010 L 1.016-1.022 Urine Protein NEGATIVE NEGATIVE Urine Glucose (UA) NEGATIVE NEGATIVE Urine Ketones NEGATIVE NEGATIVE Urine Nitrite NEGATIVE NEGATIVE Urine Bilirubin NEGATIVE NEGATIVE Urine Urobilinogen 0.2 < = 1.0 MG/DL Urine Leukocyte Esterase 2+ H NEGATIVE Urine RBC (Auto) NEGATIVE NEGATIVE Urine RBC NONE /HPF Urine WBC 10-25 H /HPF Urine Squamous Epithelial Cells 2-5 /HPF Urine Crystals NONE /LPF Urine Bacteria TRACE /HPF Urine Casts NONE /LPF Urine Mucus NONE /LPF Urine Culture Indicated YES Urine Opiates Screen NEGATIVE NEGATIVE Urine Oxycodone Screen NEGATIVE NEGATIVE Urine Methadone Screen NEGATIVE NEGATIVE Urine Propoxyphene Screen NEGATIVE NEGATIVE Urine Barbiturates Screen NEGATIVE NEGATIVE Ur Tricyclic Antidepressants Screen POSITIVE H NEGATIVE Urine Phencyclidine Screen NEGATIVE NEGATIVE Urine Amphetamines Screen NEGATIVE NEGATIVE Urine Methamphetamines Screen NEGATIVE NEGATIVE Urine Benzodiazepines Screen NEGATIVE NEGATIVE Urine Cocaine Screen NEGATIVE NEGATIVE Urine Cannabinoids Screen NEGATIVE NEGATIVE My Orders Orders - JOSE YOO MD Ua Culture If Indicated (05/16/19 20:18) Drug Screen Stat (Urine) (05/16/19 20:18) Ceftriaxone For Im Use (Rocephin For Im (05/16/19 20:19) Azithromycin Tablet (Zithromax Tablet) (05/16/19 20:19) Lidocaine 1% Inj 20 Ml (Xylocaine 1% Inj (05/16/19 20:30) Urine Culture (05/16/19 20:15) Medications Given in ED Current Medications Medications Dose Ordered Sig/Anabel Route Start Time Stop Time Status Last Admin Dose Admin Lidocaine HCl 2.1 ml ONCE ONCE INJ 05/16/19 20:30 05/16/19 20:31 DC 05/16/19 20:31 2.1 ML Vital Signs/I&O 05/16/19 05/16/19 19:56 20:59 Temp 36.4 Pulse 108 108 Resp 18 18 B/P (MAP) 132/66 (88) 132/66 Pulse Ox 99 99 O2 Delivery Room Air Room Air Capillary Refill : Less Than 3 Seconds Blood Pressure Mean: 88 Progress Note : Progress Note Urinalysis was sent as well as UDS. The UA did demonstrate signs of infection in addition to her chlamydia that she was told she was positive for from her boyfriend. Will give Rocephin and Zithromax to cover for GC and chlamydia. Since she also has signs of a UTI will also prescribed Cipro which might help with her cough as well as the UTI. She has an appointment coming up on Sunday to review her test results from the recent clinic visit so encouraged to keep that appointment as well. Departure Impression Primary Impression: Chlamydia contact Additional Impression: Acute cystitis without hematuria Disposition: HOME, SELF-CARE Condition: Stable Departure-Patient Inst. Decision time for Depature: 20:50 Referrals: CAMILLE SHETH MD (PCP/Family) Primary Care Physician Patient Instructions: Sexually-Transmitted Diseases (DC), Urinary Tract Infection, Adult (DC) Add. Discharge Instructions: Take the full course of antibiotics to treat for urine infection. The medicine you took tonight will treat for the Chlamydia you were exposed to from your Boyfriend. Follow up with clinic this next week as scheduled for the results of your other tests and further work up about your other symptoms. All discharge instructions reviewed with patient and/or family. Voiced understanding. Scripts Ciprofloxacin HCl (Ciprofloxacin HCl) 500 Mg Tablet 500 MG PO BID for 7 Days, #14 TAB 0 Refills Prov: JOSE YOO MD 05/16/19 JOSE YOO MD May 16, 2019 20:21
[2019-05-16] MEDS ORDERED: LIDOCAINE 1% INJ 20 ML 20 ML VIAL INJ ONE (20:30)
[2019-05-16 20:37] LABS: CLARITY,URINE CLEAR; COLOR,URINE YELLOW
[2019-05-16 20:38] LABS: BACTERIA,URINE TRACE /HPF; BILIRUBIN,URINE NEGATIVE (NEGATIVE); GLUCOSE, URINE (UA) NEGATIVE (NEGATIVE); KETONES,URINE NEGATIVE (NEGATIVE); LEUKOCYTE ESTERASE ,URINE 2+ (NEGATIVE); NITRITE,URINE NEGATIVE (NEGATIVE); PROTEIN,URINE NEGATIVE (NEGATIVE)
[2019-05-16] MEDS ORDERED: CIPR500T4 PO (20:52)
[2019-05-16 20:57] LABS: AMPHETAMINE SCREEN, URINE NEGATIVE (NEGATIVE); BARBITURATE SCREEN URINE NEGATIVE (NEGATIVE); BENZODIAZEPINES SCREEN URINE NEGATIVE (NEGATIVE); CANNABINOID SCREEN, URINE NEGATIVE (NEGATIVE); COCAINE SCREEN URINE NEGATIVE (NEGATIVE); METHADONE STAT NEGATIVE (NEGATIVE); METHAMPHETAMINE SCREEN URINE S NEGATIVE (NEGATIVE); OPIATE SCREEN URINE NEGATIVE (NEGATIVE); OXYCODONE STAT NEGATIVE (NEGATIVE); PROPOXYPHENE STAT NEGATIVE (NEGATIVE); TRICYCLIC ANTIDEPRESSANTS SCRE POSITIVE (NEGATIVE)
[2019-05-16 20:59] VITALS: BP 132/66
== END 2019-05-16 20:58 | disposition home or self-care (01) ==
LOC: EDUNIT# 19:52 → ER FS 19:54
DX: A74.9 Chlamydial infection, unspecified (principal); N30.00 Acute cystitis without hematuria; J44.9 Chronic obstructive pulmonary disease, unspecified; G40.909 Epilepsy, unspecified, not intractable, without status epilepticus; F20.9 Schizophrenia, unspecified; F41.9 Anxiety disorder, unspecified; F17.210 Nicotine dependence, cigarettes, uncomplicated; Z88.1 Allergy status to other antibiotic agents; Z91.040 Latex allergy status; Z90.49 Acquired absence of other specified parts of digestive tract; Z98.51 Tubal ligation status
CPT/HCPCS: 80306; 81000; 87088; 96372; 99284

== ENCOUNTER 2019-05-27 11:06 | Emergency (ER) | payer MEDICAID ==
[~2019-05-27] VITALS: Ht 163 cm; Wt 64.5 kg
[~2019-05-27 11:06] MED LIST changes: +CIPR500T4 PO; -TRAM50TA2 PO; +TRM50T PO
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
[2019-05-27 11:59] LABS: BILIRUBIN,URINE NEGATIVE (NEGATIVE); CLARITY,URINE CLEAR; COLOR,URINE YELLOW; GLUCOSE, URINE (UA) 2+ (NEGATIVE); KETONES,URINE NEGATIVE (NEGATIVE); NITRITE,URINE NEGATIVE (NEGATIVE); PROTEIN,URINE NEGATIVE (NEGATIVE)
[2019-05-27 12:00] LABS: BACTERIA,URINE FEW /HPF; LEUKOCYTE ESTERASE ,URINE 1+ (NEGATIVE)
[2019-05-27 12:06] LABS: BASOPHILS % (AUTO) 0 % (0-10); EOSINOPHILS % (AUTO) 0 % (0-10); HEMATOCRIT 35 % (35-52); HEMOGLOBIN 11.4 G/DL (11.5-16.0); LYMPHOCYTES # (AUTO) 3.1 X 10^3 (1.0-4.0); LYMPHOCYTES % (AUTO) 31 % (12-44); MEAN CORPUSCULAR HEMOGLOBIN 30 PG (25-34); MEAN CORPUSCULAR HGB CONC 32 G/DL (32-36); MEAN CORPUSCULAR VOLUME 92 FL (80-99); MEAN PLATELET VOLUME 9.2 FL (7.4-10.4); MONOCYTES # (AUTO) 0.7 X 10^3 (0.0-1.0); MONOCYTES % (AUTO) 7 % (0-12); NEUTROPHILS # (AUTO) 5.9 X 10^3 (1.8-7.8); NEUTROPHILS % (AUTO) 61 % (42-75); PLATELET COUNT 406 10^3/uL (130-400); WHITE BLOOD COUNT 9.8 10^3/uL (4.3-11.0)
[2019-05-27 12:06] LABS: AMPHETAMINE SCREEN, URINE NEGATIVE (NEGATIVE); BARBITURATE SCREEN URINE NEGATIVE (NEGATIVE); BENZODIAZEPINES SCREEN URINE NEGATIVE (NEGATIVE); CANNABINOID SCREEN, URINE NEGATIVE (NEGATIVE); COCAINE SCREEN URINE NEGATIVE (NEGATIVE); METHADONE STAT NEGATIVE (NEGATIVE); METHAMPHETAMINE SCREEN URINE S NEGATIVE (NEGATIVE); OPIATE SCREEN URINE NEGATIVE (NEGATIVE); OXYCODONE STAT NEGATIVE (NEGATIVE); PROPOXYPHENE STAT NEGATIVE (NEGATIVE); TRICYCLIC ANTIDEPRESSANTS SCRE NEGATIVE (NEGATIVE)
[2019-05-27 12:32] LABS: ALANINE AMINOTRANSFERASE 13 U/L (0-55); ALBUMIN 4.7 GM/DL (3.2-4.5); ALKALINE PHOSPHATASE 76 U/L (40-136); BILIRUBIN,TOTAL 0.3 MG/DL (0.1-1.0); BUN/CREATININE RATIO 9; CALCIUM 9.4 MG/DL (8.5-10.1); CARBON DIOXIDE 21 MMOL/L (21-32); CHLORIDE 99 MMOL/L (98-107); CREATININE SERUM 0.56 MG/DL (0.60-1.30); GFR ESTIMATED > 60; GLUCOSE 95 MG/DL (70-105); POTASSIUM 3.6 MMOL/L (3.6-5.0); SODIUM 134 MMOL/L (135-145); TOTAL PROTEIN 7.5 GM/DL (6.4-8.2)
[2019-05-27] MEDS ORDERED: CEPH-507 PO (12:39)
[2019-05-27 12:45] VITALS: BP 119/75
[2019-05-27 13:14] LABS: BAND NEUTROPHILS 0 %; BASOPHILS % (MANUAL) 0 %; EOSINOPHILS % (MANUAL) 0 %; LYMPHOCYTES % (MANUAL) 31 %; MONOCYTES % (MANUAL) 5 %; NEUTROPHILS % (MANUAL) 64 %; RBC MORPH NORMAL
== END 2019-05-27 12:45 | disposition home or self-care (01) ==
LOC: EDUNIT# 11:06 → ER FS 11:07
DX: N39.0 Urinary tract infection, site not specified (principal); J44.9 Chronic obstructive pulmonary disease, unspecified; G40.909 Epilepsy, unspecified, not intractable, without status epilepticus; F41.9 Anxiety disorder, unspecified; F20.9 Schizophrenia, unspecified; F17.210 Nicotine dependence, cigarettes, uncomplicated; Z88.1 Allergy status to other antibiotic agents; Z91.040 Latex allergy status; Z90.49 Acquired absence of other specified parts of digestive tract; Z98.51 Tubal ligation status
CPT/HCPCS: 36415; 80053; 80306; 81000; 85007; 85027; 87088

== ENCOUNTER 2019-05-29 10:34 | Emergency (ER) | payer MEDICAID ==
[~2019-05-29] VITALS: Ht 161 cm; Wt 63.6 kg
[~2019-05-29 10:34] MED LIST changes: +CEPH-507 PO; +OMEP40CA27 PO; -OMEP40CA36 PO
--- NOTE | 2019-05-29 10:59 | ED Back Pain ---
General Chief Complaint: Back Problems Stated Complaint: KIDNEY PAIN Source of Information: Patient, EMS Exam Limitations: No Limitations History of Present Illness Date Seen by Provider: May 29, 2019 Time Seen by Provider: 10:40 Initial Comments Patient presents to ER by EMS on from the [facility], [place] where she was walking from her house to her appointment with Dr. Sheth at 10:30. She has multiple presenting complaints chief of which is her right sided flank and kidney pain. She has known bladder infection diagnosed 2 days ago and was put on Keflex from the ER. She says she's had 3 different antibiotics for UTIs in the last month. All of which are from the ER. She does not follow up with her primary care doctor for this problem. She has a history of gonorrhea approximately a month ago as well which was treated and her symptoms went away. She's having no discharge. She was taken off her anxiety medicine because she was discovered to been buying Xanax off the street by her primary care provider. She denies any fever but she's had some chills and a rash. She denies shortness of breath. She has not taken anything for her pain. She says the reason she called an ambulance and did not go to her doctor's appointment was because the dolly driver told her the Dr. Sheth would not be there today. Her appointment today was about reviewing her medications. She says she has not made an appointment about her flank pain is been going on for 1 month or dysuria. Allergies and Home Medications Allergies Coded Allergies: clindamycin (Unverified Adverse Reaction, Unknown, 10/21/18) latex (Unverified Adverse Reaction, Unknown, 10/21/18) Home Medications Albuterol Sulfate 1 Puff Puff, 2 PUFF IH Q4H PRN for SHORTNESS OF BREATH 1 PUFF = 90 MCG Prescribed by: GUIDO DAVILA on 01/04/19 0146 Cephalexin 500 Mg Capsule, 500 MG PO QID Prescribed by: SOCO GAYTAN on 05/27/19 1239 Ciprofloxacin HCl 500 Mg Tablet, 500 MG PO BID Prescribed by: JOSE YOO on 05/16/19 205 Docusate Sodium 100 Mg Capsule, 100 MG PO DAILY Prescribed by: SUKHDEEP MCCULLOUGH on 11/28/18 0544 Metronidazole 500 Mg Tablet, 500 MG PO BID Prescribed by: MELANIE RODRIGUEZ on 05/29/19 1201 Nystatin 15 Gm Cream..g., 1 GM TP BID Prescribed by: MELANIE RODRIGUEZ on 05/29/19 1113 Omeprazole 40 Mg Capsule.dr, 40 MG PO DAILY Prescribed by: MELANIE RODRIGUEZ on 01/25/19 175 Omeprazole 40 Mg Capsule.dr, 40 MG PO DAILY Prescribed by: MELANIE RODRIGUEZ on 03/09/19 1608 Ondansetron 4 Mg Tab.rapdis, 4 MG PO Q6H Prescribed by: SUKHDEEP MCCULLOUGH on 10/21/18 2205 Ondansetron 4 Mg Tab.rapdis, 4 MG PO Q6H PRN for NAUSEA/VOMITING Prescribed by: MELANIE RODRIGUEZ on 01/25/19 175 Ondansetron 4 Mg Tab.rapdis, 4 MG PO Q6H PRN for NAUSEA/VOMITING Prescribed by: MELANIE RODRIGUEZ on 03/09/19 1608 Sulfamethoxazole/Trimethoprim 1 Each Tablet, 1 EACH PO BID Prescribed by: JOSE YOO on 01/06/19 214 Sulfamethoxazole/Trimethoprim 1 Each Tablet, 1 EACH PO BID Prescribed by: RIYA RIOS on 04/30/19 215 Tramadol HCl 50 Mg Tablet, 50 MG PO Q6H PRN for PAIN Prescribed by: SUKHDEEP MCCULLOUGH on 11/28/18 0544 Patient Home Medication List Home Medication List Reviewed: Yes Review of Systems Constitutional: chills; No diaphoresis, No fever, No malaise, No weakness EENTM: No ear pain, No eye pain Respiratory: No cough, No short of breath Cardiovascular: No chest pain, No edema Gastrointestinal: No abdominal pain, No constipation, No diarrhea, No nausea, No vomiting Genitourinary: see HPI; No discharge; dysuria Musculoskeletal: see HPI, back pain (r flank); No joint pain Skin: No pruritus, No rash Psychiatric/Neurological: Denies Headache, Denies Numbness All Other Systems Reviewed Negative Unless Noted: Yes Past Iebjror-Cvgdcu-Zwgefl Hx Patient Social History Alcohol Use: Occasionally Uses Number of Drinks Today: AA Alcohol Beverage of Choice: Beer Recreational Drug Use: Yes Drug of Choice: METH Smoking Status: Current Everyday Smoker Type Used: Cigarettes 2nd Hand Smoke Exposure: No Recent Foreign Travel: No Recent Hopitalizations: No Physical Abuse: No Sexual Abuse: No Mistreated: No Fear: No Immunizations Up To Date Tetanus Booster (TDap): Less than 5yrs Seasonal Allergies Seasonal Allergies: No Past Medical History Surgeries: Yes (C/S) Appendectomy, Section, Tubal Ligation Respiratory: Yes Asthma, COPD Cardiac: No Neurological: Yes (EPILEPSY) Seizure Disorder Genitourinary: No Gastrointestinal: Yes Liver Disease/Jaundice Musculoskeletal: No Endocrine: No HEENT: No Cancer: No Psychosocial: Yes Anxiety, Schizophrenia Integumentary: No Blood Disorders: No Physical Exam Vital Signs Vital Signs - First Documented 05/29/19 10:40 Temp 36.5 Pulse 65 Resp 16 B/P (MAP) 123/61 (81) Pulse Ox 98 O2 Delivery Room Air Capillary Refill : Height, Weight, BMI Height: 5'4.00" Weight: 134lbs. 0oz. [id number]; 24.00 BMI Method:Stated General Appearance: No Apparent Distress, WD/WN HEENT: PERRL/EOMI, Pharynx Normal, Moist Mucous Membranes Neck: Full Range of Motion, Normal Inspection Cardiovascular: Regular Rate, Rhythm, Normal Peripheral Pulses Respiratory: Lungs Clear, Normal Breath Sounds, No Accessory Muscle Use, No Respiratory Distress Peripheral Pulses: 2+ Radial Pulses (R), 2+ Radial Pulses (L) Gastrointestinal: Normal Bowel Sounds, No Organomegaly, No Pulsatile Mass, Non Tender, Soft Back: Normal Inspection, CVA Tenderness (R) Neurologic/Psychiatric: Alert, Oriented x3 Skin: Warm/Dry, Rash (faint erythematous pruritic rash on both butt cheeks consistent with fungal) Progress/Results/Core Measures Results/Orders Lab Results Laboratory Tests Test 05/29/19 11:00 05/29/19 11:13 Range/Units Urine Color YELLOW Urine Clarity CLEAR Urine pH 6.5 5-9 Urine Specific Dexter 1.015 L 1.016-1.022 Urine Protein NEGATIVE NEGATIVE Urine Glucose (UA) NEGATIVE NEGATIVE Urine Ketones NEGATIVE NEGATIVE Urine Nitrite NEGATIVE NEGATIVE Urine Bilirubin NEGATIVE NEGATIVE Urine Urobilinogen 0.2 < = 1.0 MG/DL Urine Leukocyte Esterase 2+ H NEGATIVE Urine RBC (Auto) TRACE H NEGATIVE Urine RBC 5-10 H /HPF Urine WBC 10-25 H /HPF Urine Squamous Epithelial Cells 10-25 H /HPF Urine Crystals NONE /LPF Urine Bacteria FEW H /HPF Urine Casts NONE /LPF Urine Mucus NEGATIVE /LPF Urine Trichomonas FEW H /HPF Urine Culture Indicated YES Urine Opiates Screen NEGATIVE NEGATIVE Urine Oxycodone Screen NEGATIVE NEGATIVE Urine Methadone Screen NEGATIVE NEGATIVE Urine Propoxyphene Screen NEGATIVE NEGATIVE Urine Barbiturates Screen NEGATIVE NEGATIVE Ur Tricyclic Antidepressants Screen NEGATIVE NEGATIVE Urine Phencyclidine Screen NEGATIVE NEGATIVE Urine Amphetamines Screen NEGATIVE NEGATIVE Urine Methamphetamines Screen NEGATIVE NEGATIVE Urine Benzodiazepines Screen NEGATIVE NEGATIVE Urine Cocaine Screen NEGATIVE NEGATIVE Urine Cannabinoids Screen NEGATIVE NEGATIVE White Blood Count 7.1 4.3-11.0 10^3/uL Red Blood Count 3.65 L 4.35-5.85 10^6/uL Hemoglobin 11.1 L 11.5-16.0 G/DL Hematocrit 34 L 35-52 % Mean Corpuscular Volume 93 80-99 FL Mean Corpuscular Hemoglobin 30 25-34 PG Mean Corpuscular Hemoglobin Concent 33 32-36 G/DL Red Cell Distribution Width 15.9 H 10.0-14.5 % Platelet Count 396 130-400 10^3/uL Mean Platelet Volume 9.1 7.4-10.4 FL Neutrophils (%) (Auto) 68 42-75 % Lymphocytes (%) (Auto) 25 12-44 % Monocytes (%) (Auto) 7 0-12 % Eosinophils (%) (Auto) 0 0-10 % Basophils (%) (Auto) 0 0-10 % Neutrophils # (Auto) 4.8 1.8-7.8 X 10^3 Lymphocytes # (Auto) 1.8 1.0-4.0 X 10^3 Monocytes # (Auto) 0.5 0.0-1.0 X 10^3 Eosinophils # (Auto) 0.0 0.0-0.3 10^3/uL Basophils # (Auto) 0.0 0.0-0.1 10^3/uL Sodium Level 135 135-145 MMOL/L Potassium Level 4.2 3.6-5.0 MMOL/L Chloride Level 100 98-107 MMOL/L Carbon Dioxide Level 24 21-32 MMOL/L Anion Gap 11 5-14 MMOL/L Blood Urea Nitrogen 4 L 7-18 MG/DL Creatinine 0.56 L 0.60-1.30 MG/DL Estimat Glomerular Filtration Rate > 60 BUN/Creatinine Ratio 7 Glucose Level 83 70-105 MG/DL Calcium Level 9.1 8.5-10.1 MG/DL Corrected Calcium 8.5-10.1 MG/DL Total Bilirubin 0.3 0.1-1.0 MG/DL Aspartate Amino Transf (AST/SGOT) 24 5-34 U/L Alanine Aminotransferase (ALT/SGPT) 14 0-55 U/L Alkaline Phosphatase 73 40-136 U/L Total Protein 7.3 6.4-8.2 GM/DL Albumin 4.6 H 3.2-4.5 GM/DL My Orders Orders - MELANIE RODRIGUEZ Cbc With Automated Diff (05/29/19 10:52) Comprehensive Metabolic Panel (05/29/19 10:52) Ua Culture If Indicated (05/29/19 10:52) Drug Screen Stat (Urine) (05/29/19 10:53) Urine Culture (05/29/19 11:00) Ct Abd/Pelvis Wo(Kidney Stone) (05/29/19 11:54) Vital Signs/I&O 05/29/19 10:40 Temp 36.5 Pulse 65 Resp 16 B/P (MAP) 123/61 (81) Pulse Ox 98 O2 Delivery Room Air Progress Progress Note #1: Time: 10:59 Progress Note Patient had Rocephin and azithromycin 2 days ago on the seventh. She's having kidney pain. Some labs and urinalysis to rule out a pyelonephritis or acute kidney injury would be in order. She denies a history of kidney stones. We have strongly encouraged her to keep follow-up with her primary care doctor. She does not appear to be in any acute distress and walks without pain to the bathroom. She is not asking for anything for pain. She has aseptic vital signs and a benign abdominal exam. Previous 3 urine cultures in the past month demonstrated two contaminations and one no growth. Suspect her dysuria could be related to urethritis? She has received Rocephin. If her symptoms persist then it may be reasonable to put her on doxycycline. Progress Note #2: Time: 11:57 Progress Note Red blood cells and Trichomonas seen on urinalysis. Plan to switch her from Keflex since she seems to be a contamination to Flagyl. We'll get a CT of the abdomen and pelvis without IV contrast to rule out kidney stone. Diagnostic Imaging Diagonstic Imaging: CT (without IV contrast) Plain Films/CT/US/NM/MRI: abdomen, pelvis Comments NAME: PETAR PASTOR [facility] REC#: [id number] PT STATUS: REG ER : 1980 PHYSICIAN: MELANIE RODRIGUEZ MD ADMIT DATE: 05/29/19/ER FS Draft Date of Exam:05/29/19 CT ABD/PELVIS WO(KIDNEY STONE) CT ABD/PELVIS WO(KIDNEY STONE) TECHNIQUE: Unenhanced CT imaging of the abdomen and pelvis was performed. 2-D reformats are created and submitted for interpretation. Automatic exposure controls were utilized to optimize patient dose. INDICATION: Right-sided abdominal pain for two months. COMPARISON: CT abdomen and pelvis of 03/09/2019. FINDINGS: Evaluation of the abdominal viscera is mildly limited without contrast. Lower chest: The lung bases are clear. No pericardial or pleural effusion. Peritoneum: No free intraperitoneal air or fluid. Liver and biliary system: Unenhanced liver is normal. The gallbladder is normal. No biliary duct dilation. Spleen and Pancreas: Spleen is normal. Unenhanced pancreas is grossly normal. Adrenals: Normal. tract: No renal or ureteral calculi. No obstructive uropathy. Urinary bladder is normally filled without wall thickening. The uterus is normal in appearance. Both ovaries also have a normal appearance. GI tract: Stomach is decompressed. No bowel obstruction. No pericolonic inflammatory changes. Sjvbjnxx-ck-stkuy volume of colonic stool. Appendectomy. Vasculature and Lymph nodes: Normal caliber aorta. No abdominal or pelvic lymphadenopathy. Musculoskeletal: No concerning osseous lesion. IMPRESSION: 1. No urinary tract calculi or obstructive uropathy. 2. Moderate volume of colonic stool could relate to constipation in the appropriate setting. Dictated on workstation # [id number] Dict: 05/29/19 1218 Trans: 05/29/19 1231 [facility] [id number] Interpreted by: OMAR CASTRO MD Electronically signed by: Reviewed: Reviewed by Me Departure Impression Primary Impression: Acute right flank pain Additional Impressions: Dariana rash of groin infection, trichomonal Disposition: 01 HOME, SELF-CARE Condition: Stable Departure-Patient Inst. Decision time for Depature: 12:36 Referrals: CAMILLE SHETH MD (PCP/Family) Primary Care Physician Patient Instructions: Acute Cystitis (DC), Fungal Skin Rash Add. Discharge Instructions: technical support analyst the nystatin from the pharmacy. Thoroughly clean your affected skin with a gentle soap and water and then dry the skin twice daily. Apply a thin amount of the nystatin cream until it disappears twice daily for the next 7-14 days. Follow-up with your primary care provider. Stop taking the cephalexin. Start taking Flagyl 500 mg twice a day with food for the next week. Return to your doctor if your symptoms are not improving in 2-3 days on antibiotics. Return to the ER if you develop fever above 102.5, intractable pain despite Tylenol and ibuprofen or other worrisome symptoms. All discharge instructions reviewed with patient and/or family. Voiced understanding. Scripts Metronidazole (Flagyl) 500 Mg Tablet 500 MG PO BID for 7 Days, #14 TAB 0 Refills Prov: MELANIE RODRIGUEZ 05/29/19 Nystatin (Nystatin) 15 Gm Cream..g. 1 GM TP BID for 7 Days, #1 TUBE 0 Refills Prov: MELANIE RODRIGUEZ 05/29/19 MELANIE RODRIGUEZ May 29, 2019 10:58
[2019-05-29] MEDS ORDERED: NYST15CR TP (11:13)
[2019-05-29 11:47] LABS: BILIRUBIN,URINE NEGATIVE (NEGATIVE); CLARITY,URINE CLEAR; COLOR,URINE YELLOW; GLUCOSE, URINE (UA) NEGATIVE (NEGATIVE); KETONES,URINE NEGATIVE (NEGATIVE); LEUKOCYTE ESTERASE ,URINE 2+ (NEGATIVE); NITRITE,URINE NEGATIVE (NEGATIVE); PH,URINE 6.5 (5-9); PROTEIN,URINE NEGATIVE (NEGATIVE)
[2019-05-29 11:48] LABS: BACTERIA,URINE FEW /HPF; TRICHOMONAS,URINE FEW /HPF
[2019-05-29 11:50] LABS: AMPHETAMINE SCREEN, URINE NEGATIVE (NEGATIVE); BARBITURATE SCREEN URINE NEGATIVE (NEGATIVE); BENZODIAZEPINES SCREEN URINE NEGATIVE (NEGATIVE); CANNABINOID SCREEN, URINE NEGATIVE (NEGATIVE); COCAINE SCREEN URINE NEGATIVE (NEGATIVE); METHADONE STAT NEGATIVE (NEGATIVE); METHAMPHETAMINE SCREEN URINE S NEGATIVE (NEGATIVE); OPIATE SCREEN URINE NEGATIVE (NEGATIVE); OXYCODONE STAT NEGATIVE (NEGATIVE); PROPOXYPHENE STAT NEGATIVE (NEGATIVE); TRICYCLIC ANTIDEPRESSANTS SCRE NEGATIVE (NEGATIVE)
[2019-05-29 11:51] LABS: BUN/CREATININE RATIO 7; CALCIUM 9.1 MG/DL (8.5-10.1); CARBON DIOXIDE 24 MMOL/L (21-32); CHLORIDE 100 MMOL/L (98-107); CREATININE SERUM 0.56 MG/DL (0.60-1.30); GFR ESTIMATED > 60; GLUCOSE 83 MG/DL (70-105); POTASSIUM 4.2 MMOL/L (3.6-5.0); SODIUM 135 MMOL/L (135-145)
[2019-05-29 11:52] LABS: ALANINE AMINOTRANSFERASE 14 U/L (0-55); ALBUMIN 4.6 GM/DL (3.2-4.5); ALKALINE PHOSPHATASE 73 U/L (40-136); BILIRUBIN,TOTAL 0.3 MG/DL (0.1-1.0); HEMATOCRIT 34 % (35-52); HEMOGLOBIN 11.1 G/DL (11.5-16.0); MEAN CORPUSCULAR HEMOGLOBIN 30 PG (25-34); MEAN CORPUSCULAR VOLUME 93 FL (80-99); TOTAL PROTEIN 7.3 GM/DL (6.4-8.2); WHITE BLOOD COUNT 7.1 10^3/uL (4.3-11.0)
[2019-05-29 11:53] LABS: BASOPHILS % (AUTO) 0 % (0-10); EOSINOPHILS % (AUTO) 0 % (0-10); LYMPHOCYTES # (AUTO) 1.8 X 10^3 (1.0-4.0); LYMPHOCYTES % (AUTO) 25 % (12-44); MEAN CORPUSCULAR HGB CONC 33 G/DL (32-36); MEAN PLATELET VOLUME 9.1 FL (7.4-10.4); MONOCYTES # (AUTO) 0.5 X 10^3 (0.0-1.0); MONOCYTES % (AUTO) 7 % (0-12); NEUTROPHILS # (AUTO) 4.8 X 10^3 (1.8-7.8); NEUTROPHILS % (AUTO) 68 % (42-75); PLATELET COUNT 396 10^3/uL (130-400); RED CELL DISTRIBUTION WIDTH 15.9 % (10.0-14.5)
[2019-05-29] MEDS ORDERED: METR500T PO (12:01)
--- NOTE | 2019-05-29 12:32 | Diagnostic Imaging Report ---
CT ABD/PELVIS WO(KIDNEY STONE) TECHNIQUE: Unenhanced CT imaging of the abdomen and pelvis was performed. 2-D reformats are created and submitted for interpretation. Automatic exposure controls were utilized to optimize patient dose. INDICATION: Right-sided abdominal pain for two months. COMPARISON: CT abdomen and pelvis of 03/09/2019. FINDINGS: Evaluation of the abdominal viscera is mildly limited without contrast. Lower chest: The lung bases are clear. No pericardial or pleural effusion. Peritoneum: No free intraperitoneal air or fluid. Liver and biliary system: Unenhanced liver is normal. The gallbladder is normal. No biliary duct dilation. Spleen and Pancreas: Spleen is normal. Unenhanced pancreas is grossly normal. Adrenals: Normal. tract: No renal or ureteral calculi. No obstructive uropathy. Urinary bladder is normally filled without wall thickening. The uterus is normal in appearance. Both ovaries also have a normal appearance. GI tract: Stomach is decompressed. No bowel obstruction. No pericolonic inflammatory changes. Mqtzhyvl-zs-nukvr volume of colonic stool. Appendectomy. Vasculature and Lymph nodes: Normal caliber aorta. No abdominal or pelvic lymphadenopathy. Musculoskeletal: No concerning osseous lesion. IMPRESSION: 1. No urinary tract calculi or obstructive uropathy. 2. Moderate volume of colonic stool could relate to constipation in the appropriate setting. Dictated by: Dictated on workstation # [id number]
[2019-05-29 12:44] VITALS: BP 121/62
== END 2019-05-29 12:44 | disposition home or self-care (01) ==
LOC: EDUNIT# 10:34 → ER FS 10:44
DX: A59.09 Other urogenital trichomoniasis (principal); B37.9 Candidiasis, unspecified; J44.9 Chronic obstructive pulmonary disease, unspecified; F41.9 Anxiety disorder, unspecified; G40.909 Epilepsy, unspecified, not intractable, without status epilepticus; F20.9 Schizophrenia, unspecified; F17.210 Nicotine dependence, cigarettes, uncomplicated; Z91.040 Latex allergy status; Z88.1 Allergy status to other antibiotic agents; Z90.49 Acquired absence of other specified parts of digestive tract; Z98.51 Tubal ligation status
CPT/HCPCS: 36415; 74176; 80053; 80306; 81000; 85025; 87088

== ENCOUNTER 2019-10-24 11:05 | Emergency (ER) | payer MEDICAID ==
[~2019-10-24] VITALS: Ht 162.6 cm; Wt 69.7 kg
[~2019-10-24 11:05] MED LIST changes: +METR500T PO; +NYST15CR TP
[2019-10-24] MEDS ORDERED: MUPI15CR11 TP (11:55)
[2019-10-24] MEDS ORDERED: ONDA4TAB11 PO (11:55)
--- NOTE | 2019-10-24 11:55 | ED Integumentary General ---
General Chief Complaint: Skin/Wound Problems Stated Complaint: NAUSEA Source: patient Exam Limitations: no limitations History of Present Illness Date Seen by Provider: Oct 24, 2019 Time Seen by Provider: 11:53 Initial Comments Presents with complaint of nausea for the last month as well as a rash on the end of her nose for several days. Denies recent illness, fever or chills. Denies any abdominal pain or vomiting. Intermittent nausea without loss of appetite or weight loss. History of the same. Patient also with multiple chronic complaints. No acute illness or change in her chronic conditions. Has an appt w her PCP in 2 wks. Allergies and Home Medications Allergies Coded Allergies: clindamycin (Unverified Adverse Reaction, Unknown, 10/21/18) latex (Unverified Adverse Reaction, Unknown, 10/21/18) Home Medications Albuterol Sulfate 1 Puff Puff, 2 PUFF IH Q4H PRN for SHORTNESS OF BREATH 1 PUFF = 90 MCG Prescribed by: GUIDO DAVILA on 01/04/19 0146 Cephalexin 500 Mg Capsule, 500 MG PO QID Prescribed by: SOCO GAYTAN on 05/27/19 1239 Ciprofloxacin HCl 500 Mg Tablet, 500 MG PO BID Prescribed by: JOSE YOO on 05/16/19 205 Docusate Sodium 100 Mg Capsule, 100 MG PO DAILY Prescribed by: SUKHDEEP MCCULLOUGH on 11/28/18 0544 Metronidazole 500 Mg Tablet, 500 MG PO BID Prescribed by: MELANIE RODRIGUEZ on 05/29/19 1201 Mupirocin Calcium 15 Gm Cream..g., 15 GM TP TID Prescribed by: INDIA ROGEL on 10/24/19 1155 Nystatin 15 Gm Cream..g., 1 GM TP BID Prescribed by: MELANIE RODRIGUEZ on 05/29/19 1113 Omeprazole 40 Mg Capsule., 40 MG PO DAILY Prescribed by: MELANIE RODRIGUEZ on 01/25/19 1757 Omeprazole 40 Mg Capsule.dr, 40 MG PO DAILY Prescribed by: MELANIE RODRIGUEZ on 03/09/19 1608 Ondansetron 4 Mg Tab.rapdis, 4 MG PO Q6H Prescribed by: SUKHDEEP MCCULLOUGH on 10/21/18 2205 Ondansetron 4 Mg Tab.rapdis, 4 MG PO Q6H PRN for NAUSEA/VOMITING Prescribed by: MELANIE RODRIGUEZ on 01/25/19 1757 Ondansetron 4 Mg Tab.rapdis, 4 MG PO Q6H PRN for NAUSEA/VOMITING Prescribed by: MELANIE RODRIGUEZ on 03/09/19 1608 Ondansetron 4 Mg Tab.rapdis, 4 MG PO Q6H PRN for NAUSEA/VOMITING Prescribed by: INDIA DANIELSTZAHRA on 10/24/19 1155 Sulfamethoxazole/Trimethoprim 1 Each Tablet, 1 EACH PO BID Prescribed by: JOSE YOO on 01/06/19 2144 Sulfamethoxazole/Trimethoprim 1 Each Tablet, 1 EACH PO BID Prescribed by: RIYA RIOS on 04/30/19 215 Tramadol HCl 50 Mg Tablet, 50 MG PO Q6H PRN for PAIN Prescribed by: SUKHDEEP MCCULLOUGH on 11/28/18 0542 Patient Home Medication List Home Medication List Reviewed: Yes Review of Systems Review of Systems Constitutional: see HPI; No diaphoresis, No dizziness, No fever, No malaise, No weakness EENTM: no symptoms reported Respiratory: No cough, No short of breath Cardiovascular: No chest pain, No edema, No palpitations Gastrointestinal: No abdominal pain, No diarrhea, No jaundice, No loss of appetite, No melena; nausea; No vomiting Musculoskeletal: No back pain Skin: see HPI, lesions, rash Past Dfggkfb-Vhyjwz-Cbxvpx Hx Past Med/Social Hx: Reviewed Nursing Past Med/Soc Hx Patient Social History Alcohol Beverage of Choice: Beer Drug of Choice: METH Type Used: Cigarettes 2nd Hand Smoke Exposure: No Recent Foreign Travel: No Contact w/Someone Who Travel: No Recent Hopitalizations: No Immunizations Up To Date Tetanus Booster (TDap): Less than 5yrs Seasonal Allergies Seasonal Allergies: No Past Medical History Surgeries: Yes (C/S) Appendectomy, Section, Tubal Ligation Respiratory: Yes Asthma, COPD Cardiac: No Neurological: Yes (EPILEPSY) Seizure Disorder Genitourinary: No Gastrointestinal: Yes Liver Disease/Jaundice Musculoskeletal: No Endocrine: No HEENT: No Cancer: No Psychosocial: Yes Anxiety, Schizophrenia Integumentary: No Blood Disorders: No Physical Exam Vital Signs Vital Signs - First Documented 10/24/19 11:51 Temp 36.6 Pulse 95 Resp 20 B/P (MAP) 128/82 (97) Pulse Ox 98 O2 Delivery Room Air Capillary Refill : General Appearance: WD/WN, no apparent distress HEENT: normal ENT inspection, other (erythematous patch distal nose w inflammation- consistent w impetigo (or self inflicted picking)) Cardiovascular: regular rate, rhythm, no edema Respiratory: chest non-tender, lungs clear Gastrointestinal: non tender, soft Extremities: normal range of motion, non-tender, normal capillary refill Progress/Results/Core Measures Results/Orders Vital Signs/I&O 10/24/19 11:51 Temp 36.6 Pulse 95 Resp 20 B/P (MAP) 128/82 (97) Pulse Ox 98 O2 Delivery Room Air Departure Impression Primary Impression: Soft tissue infection Additional Impression: Nausea alone Disposition: HOME, SELF-CARE Condition: Stable Departure-Patient Inst. Decision time for Depature: 12:00 Referrals: CAMILLE SHETH MD (PCP/Family) Primary Care Physician Patient Instructions: Nausea and Vomiting, Adult (DC), Wound Care (DC) Add. Discharge Instructions: See your PCP as scheduled on 06 November.....sooner if worse. All discharge instructions reviewed with patient and/or family. Voiced understanding. Scripts Ondansetron (Ondansetron Odt) 4 Mg Tab.rapdis 4 MG PO Q6H PRN for NAUSEA/VOMITING, #8 TAB 0 Refills Prov: INDIA ROGEL DO 10/24/19 Mupirocin Calcium (Mupirocin) 15 Gm Cream..g. 15 GM TP TID, #1 TUBE Prov: INDIA ROGEL DO 10/24/19 INDIA ROGEL DO Oct 24, 2019 11:55
[2019-10-24 12:05] VITALS: BP 128/82
--- OUTSIDE RECORDS SUMMARY | 2019-10-24 15:13 | XMS REPORT | Continuity of Care Document ---
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 mg/dL NORMAL Urine leukocyte esterase detection by dipstick NEG ATIVE NEGATIVE Automated urine sediment erythrocyte cou nt by microscopy (number/high power field) [HPF] NRG Automated urine sediment leukocyte count by microscopy (number/high power field) [HPF] NRG Bacteria detection in urine sediment by light microsco py NEGATIVE NRG Squamous epithelial cells detection in u rine sediment by light microscopy 2-5 NRG Crystals detection in urine sediment by light microsco py NONE NRG Casts detection in urine sediment by light microscopy NONE NRG Mucus detection in urine sediment by light microscopy NONE NRG Complete urinalysis with reflex to culture NO NRG Urine drug screening test - 10/21/18 21: 41 Urine phencyclidine detection by screening method NEGATIVE NEGATIVE Urine benzodiazepines detection by screening method NEGATIVE NEGATIVE Urine cocaine detection NEGATIVE NEGATI VE Urine amphetamines detection by screening method N EGATIVE NEGATIVE Urine methamphetamine detection by screening method NEGATIVE NEGATIVE Urine cannabinoids detection by screening method N EGATIVE NEGATIVE Urine opiates detection by screening method NEGATI VE NEGATIVE Urine barbiturates detection NEGATIVE N EGATIVE Screening urine tricyclic antidepressants detection NEGATIVE NEGATIVE Urine methadone detection by screening method NEGA TIVE NEGATIVE Urine oxycodone detection NEGATIVE NEGA TIVE Urine propoxyphene detection NEGATIVE N EGATIVE Complete blood count (CBC) with automate d white blood cell (WBC) differential - 11/22/18 01:45 Blood leukocytes automated count (number/volume) 10.7 10*3/uL 4.3-11.0 Blood erythrocytes automated count (number/volume) 3.64 10*6/uL 4.35-5.85 Venous blood hemoglobin measurement (mass/volume) 11.4 g/dL 11.5-16.0 Blood hematocrit (volume fraction) 35 % 35-52 Automated erythrocyte mean corpuscular volume 96 [ foz_us] 80-99 Automated erythrocyte mean corpuscular h emoglobin (mass per erythrocyte) 31 pg 25-34 Automated erythrocyte mean corpuscular h emoglobin concentration measurement (mass/volume) 33 g/dL 32-36 Automated erythrocyte distribution width ratio 15. 9 % 10.0- 14.5 Automated blood platelet count (count/volume) 323 10*3/uL 130-400 Automated blood platelet mean volume measurement 9.7 [foz_us] 7.4-10.4 Automated blood neutrophils/100 leukocytes 67 % 42-75 Automated blood lymphocytes/100 leukocytes 26 % 12-44 Blood monocytes/100 leukocytes 6 % 0-12 Automated blood eosinophils/100 leukocytes 0 % 0-10 Automated blood basophils/100 leukocytes 1 % 0-10 Blood neutrophils automated count (number/volume) 7.2 10*3 1.8-7.8 Blood lymphocytes automated count (number/volume) 2.8 10*3 1.0-4.0 Blood monocytes automated count (number/volume) 0. 7 10*3 0.0-1.0 Automated eosinophil count 0.0 10*3/uL 0 .0-0.3 Automated blood basophil count (count/volume) 0.1 10*3/uL 0.0-0.1 PT panel in platelet poor plasma by coag ulation assay - 11/22/18 01:45 Prothrombin time (PT) in platelet poor plasma by coagu lation assay 14.2 s 12.2-14.7 INR in platelet poor plasma or blood by coagulation as say 1.1 0.8-1.4 Activated partial thromboplastin time (a PTT) in platelet poor plasma bycoagulation assay - 11/22/18 01:45 Activated partial thromboplastin time (a PTT) in platelet poor plasma bycoagulation assay 26 s 24-35 Serum or plasma ethanol measurement (mas s/volume) - 11/22/18 01:45 Serum or plasma ethanol measurement (mass/volume) 160 mg/dL <10 Comprehensive metabolic panel - 11/22/18 01:45 Serum or plasma sodium measurement (moles/volume) 143 mmol/L 135-145 Serum or plasma potassium measurement (moles/volume) 3.8 mmol/L 3.6-5.0 Serum or plasma chloride measurement (moles/volume) 109 mmol/L 98-107 Carbon dioxide 17 mmol/L 21-32 Serum or plasma anion gap determination (moles/volume) 17 mmol/L 5-14 Serum or plasma urea nitrogen measurement (mass/volume ) 8 mg/dL 7-18 Serum or plasma creatinine measurement (mass/volume) 0.66 mg/dL 0.60-1.30 Serum or plasma urea nitrogen/creatinine mass ratio 12 NRG Serum or plasma creatinine measurement w ith calculation of estimated glomerular filtration rate > NRG Serum or plasma glucose measurement (mass/volume) 83 mg/dL 70-105 Serum or plasma calcium measurement (mass/volume) 8.1 mg/dL 8.5-10.1 Serum or plasma total bilirubin measurement (mass/volu me) 0.4 mg/dL 0.1-1.0 Serum or plasma alkaline phosphatase henrique surement (enzymatic activity/volume) 65 U/L 40-136 Serum or plasma aspartate aminotransfera se measurement (enzymatic activity/volume) 35 U/L 5-34 Serum or plasma alanine aminotransferase measurement (enzymatic activity/volume) 13 U/L 0-55 Serum or plasma protein measurement (mass/volume) 6.3 g/dL 6.4-8.2 Serum or plasma albumin measurement (mass/volume) 3.7 g/dL 3.2-4.5 CALCIUM CORRECTED 8.3 mg/dL 8.5-10.1 Serum or plasma choriogonadotropin measu rement (units/volume) - 11/22/18 01:45 Serum or plasma choriogonadotropin measurement (units/ volume) < m[iU]/mL <5 Urine beta human chorionic gonadotropin (hCG) measurement - 11/28/18 04:55 Urine beta human chorionic gonadotropin (hCG) measurem ent NEGATIVE NEGATIVE Urine drug screening test - 11/28/18 04: 55 Urine phencyclidine detection by screening method NEGATIVE NEGATIVE Urine benzodiazepines detection by screening method NEGATIVE NEGATIVE Urine cocaine detection NEGATIVE NEGATI VE Urine amphetamines detection by screening method N EGATIVE NEGATIVE Urine methamphetamine detection by screening method NEGATIVE NEGATIVE Urine cannabinoids detection by screening method N EGATIVE NEGATIVE Urine opiates detection by screening method NEGATI VE NEGATIVE Urine barbiturates detection NEGATIVE N EGATIVE Screening urine tricyclic antidepressants detection NEGATIVE NEGATIVE Urine methadone detection by screening method NEGA TIVE NEGATIVE Urine oxycodone detection NEGATIVE NEGA TIVE Urine propoxyphene detection NEGATIVE N EGATIVE Complete urinalysis with reflex to cultu re - 11/28/18 04:55 Urine color determination YELLOW NRG Urine clarity determination CLEAR NR G Urine pH measurement by test strip 6.0 5-9 Specific gravity of urine by test strip 1.020 1.016-1.022 Urine protein assay by test strip, semi-quantitative NEGATIVE NEGATIVE Urine glucose detection by automated test strip NE GATIVE NEGATIVE Erythrocytes detection in urine sediment by light micr oscopy 2+ NEGATIVE Urine ketones detection by automated test strip NE GATIVE NEGATIVE Urine nitrite detection by test strip NEGATIVE NEGATIVE Urine total bilirubin detection by test strip NEGA TIVE NEGATIVE Urine urobilinogen measurement by automated test strip (mass/volume) 0.2 mg/dL NORMAL Urine leukocyte esterase detection by dipstick 1+ NEGATIVE Automated urine sediment erythrocyte cou nt by microscopy (number/high power field) [HPF] NRG Automated urine sediment leukocyte count by microscopy (number/high power field) [HPF] NRG Bacteria detection in urine sediment by light microsco py NONE NRG Squamous epithelial cells detection in u rine sediment by light microscopy 5-10 NRG Crystals detection in urine sediment by light microsco py NONE NRG Casts detection in urine sediment by light microscopy NONE NRG Mucus detection in urine sediment by light microscopy SMALL NRG Complete urinalysis with reflex to culture NO NRG Capillary blood glucose measurement by g lucometer (mass/volume) - 11/28/18 05:43 Capillary blood glucose measurement by glucometer (mas s/volume) 102 mg/dL 70-110 Urine drug screening test - 12/06/18 20: 10 Urine phencyclidine detection by screening method NEGATIVE NEGATIVE Urine benzodiazepines detection by screening method NEGATIVE NEGATIVE Urine cocaine detection NEGATIVE NEGATI VE Urine amphetamines detection by screening method N EGATIVE NEGATIVE Urine methamphetamine detection by screening method NEGATIVE NEGATIVE Urine cannabinoids detection by screening method N EGATIVE NEGATIVE Urine opiates detection by screening method NEGATI VE NEGATIVE Urine barbiturates detection NEGATIVE N EGATIVE Screening urine tricyclic antidepressants detection NEGATIVE NEGATIVE Urine methadone detection by screening method NEGA TIVE NEGATIVE Urine oxycodone detection NEGATIVE NEGA TIVE Urine propoxyphene detection NEGATIVE N EGATIVE Complete blood count (CBC) with automate d white blood cell (WBC) differential - 12/06/18 22:31 Blood leukocytes automated count (number/volume) 9.9 10*3/uL 4.3-11.0 Blood erythrocytes automated count (number/volume) 3.49 10*6/uL 4.35-5.85 Venous blood hemoglobin measurement (mass/volume) 10.8 g/dL 11.5-16.0 Blood hematocrit (volume fraction) 33 % 35-52 Automated erythrocyte mean corpuscular volume 95 [ foz_us] 80-99 Automated erythrocyte mean corpuscular h emoglobin (mass per erythrocyte) 31 pg 25-34 Automated erythrocyte mean corpuscular h emoglobin concentration measurement (mass/volume) 32 g/dL 32-36 Automated erythrocyte distribution width ratio 15. 8 % 10.0- 14.5 Automated blood platelet count (count/volume) 492 10*3/uL 130-400 Automated blood platelet mean volume measurement 9.1 [foz_us] 7.4-10.4 Automated blood neutrophils/100 leukocytes 59 % 42-75 Automated blood lymphocytes/100 leukocytes 34 % 12-44 Blood monocytes/100 leukocytes 6 % 0-12 Automated blood eosinophils/100 leukocytes 0 % 0-10 Automated blood basophils/100 leukocytes 1 % 0-10 Blood neutrophils automated count (number/volume) 5.9 10*3 1.8-7.8 Blood lymphocytes automated count (number/volume) 3.3 10*3 1.0-4.0 Blood monocytes automated count (number/volume) 0. 6 10*3 0.0-1.0 Automated eosinophil count 0.0 10*3/uL 0 .0-0.3 Automated blood basophil count (count/volume) 0.1 10*3/uL 0.0-0.1 Comprehensive metabolic panel - 12/06/18 22:31 Serum or plasma sodium measurement (moles/volume) 140 mmol/L 135-145 Serum or plasma potassium measurement (moles/volume) 3.5 mmol/L 3.6-5.0 Serum or plasma chloride measurement (moles/volume) 102 mmol/L 98-107 Carbon dioxide 25 mmol/L 21-32 Serum or plasma anion gap determination (moles/volume) 13 mmol/L 5-14 Serum or plasma urea nitrogen measurement (mass/volume ) 8 mg/dL 7-18 Serum or plasma creatinine measurement (mass/volume) 0.73 mg/dL 0.60-1.30 Serum or plasma urea nitrogen/creatinine mass ratio 11 NRG Serum or plasma creatinine measurement w ith calculation of estimated glomerular filtration rate > NRG Serum or plasma glucose measurement (mass/volume) 102 mg/dL 70-105 Serum or plasma calcium measurement (mass/volume) 8.9 mg/dL 8.5-10.1 Serum or plasma total bilirubin measurement (mass/volu me) 0.3 mg/dL 0.1-1.0 Serum or plasma alkaline phosphatase henrique surement (enzymatic activity/volume) 61 U/L 40-136 Serum or plasma aspartate aminotransfera se measurement (enzymatic activity/volume) 14 U/L 5-34 Serum or plasma alanine aminotransferase measurement (enzymatic activity/volume) 10 U/L 0-55 Serum or plasma protein measurement (mass/volume) 6.5 g/dL 6.4-8.2 Serum or plasma albumin measurement (mass/volume) 4.0 g/dL 3.2-4.5 CALCIUM CORRECTED 8.9 mg/dL 8.5-10.1 Serum or plasma ethanol measurement (mas s/volume) - 12/06/18 22:31 Serum or plasma ethanol measurement (mass/volume) < mg/dL <10 Complete blood count (CBC) with automate d white blood cell (WBC) differential - 01/04/19 00:50 Blood leukocytes automated count (number/volume) 9.2 10*3/uL 4.3-11.0 Blood erythrocytes automated count (number/volume) 3.72 10*6/uL 4.35-5.85 Venous blood hemoglobin measurement (mass/volume) 11.2 g/dL 11.5-16.0 Blood hematocrit (volume fraction) 35 % 35-52 Automated erythrocyte mean corpuscular volume 95 [ foz_us] 80-99 Automated erythrocyte mean corpuscular h emoglobin (mass per erythrocyte) 30 pg 25-34 Automated erythrocyte mean corpuscular h emoglobin concentration measurement (mass/volume) 32 g/dL 32-36 Automated erythrocyte distribution width ratio 16. 4 % 10.0- 14.5 Automated blood platelet count (count/volume) 416 10*3/uL 130-400 Automated blood platelet mean volume measurement 9.2 [foz_us] 7.4-10.4 Automated blood neutrophils/100 leukocytes 61 % 42-75 Automated blood lymphocytes/100 leukocytes 29 % 12-44 Blood monocytes/100 leukocytes 8 % 0-12 Automated blood eosinophils/100 leukocytes 1 % 0-10 Automated blood basophils/100 leukocytes 0 % 0-10 Blood neutrophils automated count (number/volume) 5.6 10*3 1.8-7.8 Blood lymphocytes automated count (number/volume) 2.7 10*3 1.0-4.0 Blood monocytes automated count (number/volume) 0. 8 10*3 0.0-1.0 Automated eosinophil count 0.1 10*3/uL 0 .0-0.3 Automated blood basophil count (count/volume) 0.0 10*3/uL 0.0-0.1 PT panel in platelet poor plasma by coag ulation assay - 01/04/19 00:50 Prothrombin time (PT) in platelet poor plasma by coagu lation assay 13.8 s 12.2-14.7 INR in platelet poor plasma or blood by coagulation as say 1.0 0.8-1.4 Activated partial thromboplastin time (a PTT) in platelet poor plasma bycoagulation assay - 01/04/19 00:50 Activated partial thromboplastin time (a PTT) in platelet poor plasma bycoagulation assay 27 s 24-35 Comprehensive metabolic panel - 01/04/19 00:50 Serum or plasma sodium measurement (moles/volume) 143 mmol/L 135-145 Serum or plasma potassium measurement (moles/volume) 4.1 mmol/L 3.6-5.0 Serum or plasma chloride measurement (moles/volume) 105 mmol/L 98-107 Carbon dioxide 25 mmol/L 21-32 Serum or plasma anion gap determination (moles/volume) 13 mmol/L 5-14 Serum or plasma urea nitrogen measurement (mass/volume ) 13 mg/dL 7-18 Serum or plasma creatinine measurement (mass/volume) 0.61 mg/dL 0.60-1.30 Serum or plasma urea nitrogen/creatinine mass ratio 21 NRG Serum or plasma creatinine measurement w ith calculation of estimated glomerular filtration rate > NRG Serum or plasma glucose measurement (mass/volume) 95 mg/dL 70-105 Serum or plasma calcium measurement (mass/volume) 9.6 mg/dL 8.5-10.1 Serum or plasma total bilirubin measurement (mass/volu me) 0.2 mg/dL 0.1-1.0 Serum or plasma alkaline phosphatase henrique surement (enzymatic activity/volume) 71 U/L 40-136 Serum or plasma aspartate aminotransfera se measurement (enzymatic activity/volume) 14 U/L 5-34 Serum or plasma alanine aminotransferase measurement (enzymatic activity/volume) 11 U/L 0-55 Serum or plasma protein measurement (mass/volume) 6.7 g/dL 6.4-8.2 Serum or plasma albumin measurement (mass/volume) 4.2 g/dL 3.2-4.5 CALCIUM CORRECTED 9.4 mg/dL 8.5-10.1 Magnesium - 01/04/19 00:50 Magnesium 2.0 mg/dL 1.6-2.4 Serum or plasma troponin i.cardiac measu rement (mass/volume) - 01/04/19 00:50 Serum or plasma troponin i.cardiac measurement (mass/v olume) < ng/mL <0.30 Serum or plasma ethanol measurement (mas s/volume) - 01/04/19 00:50 Serum or plasma ethanol measurement (mass/volume) < mg/dL <10 Myoglobin, serum - 01/04/19 00:50 Myoglobin, serum < ng/mL 10.0-92.0 Complete urinalysis with reflex to cultu re - 01/06/19 20:58 Urine color determination YELLOW NRG Urine clarity determination CLEAR NR G Urine pH measurement by test strip 7.5 5-9 Specific gravity of urine by test strip 1.020 1.016-1.022 Urine protein assay by test strip, semi-quantitative NEGATIVE NEGATIVE Urine glucose detection by automated test strip NE GATIVE NEGATIVE Erythrocytes detection in urine sediment by light micr oscopy NEGATIVE NEGATIVE Urine ketones detection by automated test strip NE GATIVE NEGATIVE Urine nitrite detection by test strip NEGATIVE NEGATIVE Urine total bilirubin detection by test strip NEGA TIVE NEGATIVE Urine urobilinogen measurement by automated test strip (mass/volume) 0.2 mg/dL NORMAL Urine leukocyte esterase detection by dipstick NEG ATIVE NEGATIVE Automated urine sediment erythrocyte cou nt by microscopy (number/high power field) NONE NRG Automated urine sediment leukocyte count by microscopy (number/high power field) NONE NRG Bacteria detection in urine sediment by light microsco py NONE NRG Squamous epithelial cells detection in u rine sediment by light microscopy 5-10 NRG Crystals detection in urine sediment by light microsco py NONE NRG Casts detection in urine sediment by light microscopy NONE NRG Mucus detection in urine sediment by light microscopy NEGATIVE NRG Complete urinalysis with reflex to culture NO NRG Urine beta human chorionic gonadotropin (hCG) measurement - 01/06/19 20:58 Urine beta human chorionic gonadotropin (hCG) measurem ent NEGATIVE NEGATIVE Urine drug screening test - 01/06/19 20: 58 Urine phencyclidine detection by screening method NEGATIVE NEGATIVE Urine benzodiazepines detection by screening method NEGATIVE NEGATIVE Urine cocaine detection NEGATIVE NEGATI VE Urine amphetamines detection by screening method N EGATIVE NEGATIVE Urine methamphetamine detection by screening method NEGATIVE NEGATIVE Urine cannabinoids detection by screening method N EGATIVE NEGATIVE Urine opiates detection by screening method NEGATI VE NEGATIVE Urine barbiturates detection NEGATIVE N EGATIVE Screening urine tricyclic antidepressants detection POSITIVE NEGATIVE Urine methadone detection by screening method NEGA TIVE NEGATIVE Urine oxycodone detection NEGATIVE NEGA TIVE Urine propoxyphene detection NEGATIVE N EGATIVE Complete blood count (CBC) with automate d white blood cell (WBC) differential - 03/09/19 15:17 Blood leukocytes automated count (number/volume) 7.9 10*3/uL 4.3-11.0 Blood erythrocytes automated count (number/volume) 3.68 10*6/uL 4.35-5.85 Venous blood hemoglobin measurement (mass/volume) 11.4 g/dL 11.5-16.0 Blood hematocrit (volume fraction) 34 % 35-52 Automated erythrocyte mean corpuscular volume 94 [ foz_us] 80-99 Automated erythrocyte mean corpuscular h emoglobin (mass per erythrocyte) 31 pg 25-34 Automated erythrocyte mean corpuscular h emoglobin concentration measurement (mass/volume) 33 g/dL 32-36 Automated erythrocyte distribution width ratio 15. 5 % 10.0- 14.5 Automated blood platelet count (count/volume) 409 10*3/uL 130-400 Automated blood platelet mean volume measurement 9.4 [foz_us] 7.4-10.4 Automated blood neutrophils/100 leukocytes 71 % 42-75 Automated blood lymphocytes/100 leukocytes 22 % 12-44 Blood monocytes/100 leukocytes 6 % 0-12 Automated blood eosinophils/100 leukocytes 0 % 0-10 Automated blood basophils/100 leukocytes 0 % 0-10 Blood neutrophils automated count (number/volume) 5.6 10*3 1.8-7.8 Blood lymphocytes automated count (number/volume) 1.7 10*3 1.0-4.0 Blood monocytes automated count (number/volume) 0. 5 10*3 0.0-1.0 Automated eosinophil count 0.0 10*3/uL 0 .0-0.3 Automated blood basophil count (count/volume) 0.0 10*3/uL 0.0-0.1 Comprehensive metabolic panel - 03/09/19 15:17 Serum or plasma sodium measurement (moles/volume) 141 mmol/L 135-145 Serum or plasma potassium measurement (moles/volume) 3.8 mmol/L 3.6-5.0 Serum or plasma chloride measurement (moles/volume) 103 mmol/L 98-107 Carbon dioxide 26 mmol/L 21-32 Serum or plasma anion gap determination (moles/volume) 12 mmol/L 5-14 Serum or plasma urea nitrogen measurement (mass/volume ) 6 mg/dL 7-18 Serum or plasma creatinine measurement (mass/volume) 0.64 mg/dL 0.60-1.30 Serum or plasma urea nitrogen/creatinine mass ratio 9 NRG Serum or plasma creatinine measurement w ith calculation of estimated glomerular filtration rate > NRG Serum or plasma glucose measurement (mass/volume) 105 mg/dL 70-105 Serum or plasma calcium measurement (mass/volume) 9.0 mg/dL 8.5-10.1 Serum or plasma total bilirubin measurement (mass/volu me) 0.2 mg/dL 0.1-1.0 Serum or plasma alkaline phosphatase henrique surement (enzymatic activity/volume) 79 U/L 40-136 Serum or plasma aspartate aminotransfera se measurement (enzymatic activity/volume) 17 U/L 5-34 Serum or plasma alanine aminotransferase measurement (enzymatic activity/volume) 11 U/L 0-55 Serum or plasma protein measurement (mass/volume) 7.0 g/dL 6.4-8.2 Serum or plasma albumin measurement (mass/volume) 4.5 g/dL 3.2-4.5 CALCIUM CORRECTED 8.6 mg/dL 8.5-10.1 PROBNP FS - 03/09/19 15:17 PROBNP FS 90.3 pg/mL <75.0 Serum or plasma ethanol measurement (mas s/volume) - 03/09/19 15:17 Serum or plasma ethanol measurement (mass/volume) < mg/dL <10 Complete urinalysis with reflex to cultu re - 03/09/19 15:27 Urine color determination YELLOW NRG Urine clarity determination CLEAR NR G Urine pH measurement by test strip 6.0 5-9 Specific gravity of urine by test strip 1.015 1.016-1.022 Urine protein assay by test strip, semi-quantitative NEGATIVE NEGATIVE Urine glucose detection by automated test strip NE GATIVE NEGATIVE Erythrocytes detection in urine sediment by light micr oscopy NEGATIVE NEGATIVE Urine ketones detection by automated test strip NE GATIVE NEGATIVE Urine nitrite detection by test strip NEGATIVE NEGATIVE Urine total bilirubin detection by test strip NEGA TIVE NEGATIVE Urine urobilinogen measurement by automated test strip (mass/volume) 0.2 mg/dL NORMAL Urine leukocyte esterase detection by dipstick NEG ATIVE NEGATIVE Automated urine sediment erythrocyte cou nt by microscopy (number/high power field) NONE NRG Automated urine sediment leukocyte count by microscopy (number/high power field) RARE NRG Bacteria detection in urine sediment by light microsco py TRACE NRG Squamous epithelial cells detection in u rine sediment by light microscopy 0-2 NRG Crystals detection in urine sediment by light microsco py NONE NRG Casts detection in urine sediment by light microscopy NONE NRG Mucus detection in urine sediment by light microscopy SMALL NRG Complete urinalysis with reflex to culture NO NRG Urine drug screening test - 03/09/19 15: 27 Urine phencyclidine detection by screening method NEGATIVE NEGATIVE Urine benzodiazepines detection by screening method NEGATIVE NEGATIVE Urine cocaine detection NEGATIVE NEGATI VE Urine amphetamines detection by screening method N EGATIVE NEGATIVE Urine methamphetamine detection by screening method NEGATIVE NEGATIVE Urine cannabinoids detection by screening method N EGATIVE NEGATIVE Urine opiates detection by screening method NEGATI VE NEGATIVE Urine barbiturates detection NEGATIVE N EGATIVE Screening urine tricyclic antidepressants detection NEGATIVE NEGATIVE Urine methadone detection by screening method NEGA TIVE NEGATIVE Urine oxycodone detection NEGATIVE NEGA TIVE Urine propoxyphene detection NEGATIVE N EGATIVE CBC - 03/17/19 10:04 WHITE BLOOD CELL COUNT 7.5 Thousand/uL 3 .8-10.8 RED BLOOD CELL COUNT 3.85 Million/uL 3.8 0-5.10 HEMOGLOBIN 11.7 g/dL 11.7-15.5 HEMATOCRIT 36.6 % 35.0-45.0 MCV 95.1 fL 80.0-100.0 MCH 30.4 pg 27.0-33.0 MCHC 32.0 g/dL 32.0-36.0 RDW 14.2 % 11.0-15.0 PLATELET COUNT 462 Thousand/uL 140-400 MPV 9.4 fL 7.5-12.5 ABSOLUTE NEUTROPHILS 4470 cells/uL 1500- 7800 ABSOLUTE LYMPHOCYTES 2460 cells/uL 850-3 900 ABSOLUTE MONOCYTES 480 cells/uL 200-950 ABSOLUTE EOSINOPHILS 53 cells/uL 15-500 ABSOLUTE BASOPHILS 38 cells/uL 0-200 NEUTROPHILS 59.6 % NRG LYMPHOCYTES 32.8 % NRG MONOCYTES 6.4 % NRG EOSINOPHILS 0.7 % NRG BASOPHILS 0.5 % NRG TSH - 03/17/19 10:04 TSH 2.92 mIU/L NRG Capillary blood glucose measurement by g lucometer (mass/volume) - 04/30/19 21:15 Capillary blood glucose measurement by glucometer (mas s/volume) 110 mg/dL 70-110 Urine beta human chorionic gonadotropin (hCG) measurement - 04/30/19 21:20 Urine beta human chorionic gonadotropin (hCG) measurem ent NEGATIVE NEGATIVE Complete urinalysis with reflex to cultu re - 04/30/19 21:20 Urine color determination YELLOW NRG Urine clarity determination CLEAR NR G Urine pH measurement by test strip 6.0 5-9 Specific gravity of urine by test strip <= 1.016-1.022 Urine protein assay by test strip, semi-quantitative NEGATIVE NEGATIVE Urine glucose detection by automated test strip NE GATIVE NEGATIVE Erythrocytes detection in urine sediment by light micr oscopy NEGATIVE NEGATIVE Urine ketones detection by automated test strip NE GATIVE NEGATIVE Urine nitrite detection by test strip NEGATIVE NEGATIVE Urine total bilirubin detection by test strip NEGA TIVE NEGATIVE Urine urobilinogen measurement by automated test strip (mass/volume) 0.2 mg/dL < = 1.0 Urine leukocyte esterase detection by dipstick TRA CE NEGATIVE Automated urine sediment erythrocyte cou nt by microscopy (number/high power field) NONE NRG Automated urine sediment leukocyte count by microscopy (number/high power field) [HPF] NRG Bacteria detection in urine sediment by light microsco py TRACE NRG Squamous epithelial cells detection in u rine sediment by light microscopy 10-25 NRG Crystals detection in urine sediment by light microsco py NONE NRG Casts detection in urine sediment by light microscopy NONE NRG Mucus detection in urine sediment by light microscopy NEGATIVE NRG Complete urinalysis with reflex to culture YES NRG Bacterial urine culture - 04/30/19 21:20 Bacterial urine culture NG NRG HCG, QUANTITATIVE - 05/16/19 13:22 HCG, TOTAL, QN <2 mIU/mL NRG Complete urinalysis with reflex to cultu re - 05/16/19 20:15 Urine color determination YELLOW NRG Urine clarity determination CLEAR NR G Urine pH measurement by test strip 6.0 5-9 Specific gravity of urine by test strip 1.010 1.016-1.022 Urine protein assay by test strip, semi-quantitative NEGATIVE NEGATIVE Urine glucose detection by automated test strip NE GATIVE NEGATIVE Erythrocytes detection in urine sediment by light micr oscopy NEGATIVE NEGATIVE Urine ketones detection by automated test strip NE GATIVE NEGATIVE Urine nitrite detection by test strip NEGATIVE NEGATIVE Urine total bilirubin detection by test strip NEGA TIVE NEGATIVE Urine urobilinogen measurement by automated test strip (mass/volume) 0.2 mg/dL < = 1.0 Urine leukocyte esterase detection by dipstick 2+ NEGATIVE Automated urine sediment erythrocyte cou nt by microscopy (number/high power field) NONE NRG Automated urine sediment leukocyte count by microscopy (number/high power field) [HPF] NRG Bacteria detection in urine sediment by light microsco py TRACE NRG Squamous epithelial cells detection in u rine sediment by light microscopy 2-5 NRG Crystals detection in urine sediment by light microsco py NONE NRG Casts detection in urine sediment by light microscopy NONE NRG Mucus detection in urine sediment by light microscopy NONE NRG Complete urinalysis with reflex to culture YES NRG Urine drug screening test - 05/16/19 20: 15 Urine phencyclidine detection by screening method NEGATIVE NEGATIVE Urine benzodiazepines detection by screening method NEGATIVE NEGATIVE Urine cocaine detection NEGATIVE NEGATI VE Urine amphetamines detection by screening method N EGATIVE NEGATIVE Urine methamphetamine detection by screening method NEGATIVE NEGATIVE Urine cannabinoids detection by screening method N EGATIVE NEGATIVE Urine opiates detection by screening method NEGATI VE NEGATIVE Urine barbiturates detection NEGATIVE N EGATIVE Screening urine tricyclic antidepressants detection POSITIVE NEGATIVE Urine methadone detection by screening method NEGA TIVE NEGATIVE Urine oxycodone detection NEGATIVE NEGA TIVE Urine propoxyphene detection NEGATIVE N EGATIVE Bacterial urine culture - 05/16/19 20:15 Bacterial urine culture 3 OR MORE NRG COLONY COUNT 30,000 CFU/ML NRG FTX;REPORTABLE (GRAM POSITIVE) SUGGESTING PROBABLE NRG FREE TEXT ENTRY 2 COLLECTION CONTAMINATION WITH SK IN NRG FREE TEXT ENTRY 3 CARRIE. NO SUSCEPTIBILITY PERFOR MED NRG Complete urinalysis with reflex to cultu re - 05/27/19 11:15 Urine color determination YELLOW NRG Urine clarity determination CLEAR NR G Urine pH measurement by test strip 6.0 5-9 Specific gravity of urine by test strip 1.010 1.016-1.022 Urine protein assay by test strip, semi-quantitative NEGATIVE NEGATIVE Urine glucose detection by automated test strip 2+ NEGATIVE Erythrocytes detection in urine sediment by light micr oscopy NEGATIVE NEGATIVE Urine ketones detection by automated test strip NE GATIVE NEGATIVE Urine nitrite detection by test strip NEGATIVE NEGATIVE Urine total bilirubin detection by test strip NEGA TIVE NEGATIVE Urine urobilinogen measurement by automated test strip (mass/volume) 0.2 mg/dL < = 1.0 Urine leukocyte esterase detection by dipstick 1+ NEGATIVE Automated urine sediment erythrocyte cou nt by microscopy (number/high power field) [HPF] NRG Automated urine sediment leukocyte count by microscopy (number/high power field) [HPF] NRG Bacteria detection in urine sediment by light microsco py FEW NRG Squamous epithelial cells detection in u rine sediment by light microscopy 5-10 NRG Crystals detection in urine sediment by light microsco py NONE NRG Casts detection in urine sediment by light microscopy NONE NRG Mucus detection in urine sediment by light microscopy NEGATIVE NRG Complete urinalysis with reflex to culture YES NRG Urine drug screening test - 05/27/19 11: 15 Urine phencyclidine detection by screening method NEGATIVE NEGATIVE Urine benzodiazepines detection by screening method NEGATIVE NEGATIVE Urine cocaine detection NEGATIVE NEGATI VE Urine amphetamines detection by screening method N EGATIVE NEGATIVE Urine methamphetamine detection by screening method NEGATIVE NEGATIVE Urine cannabinoids detection by screening method N EGATIVE NEGATIVE Urine opiates detection by screening method NEGATI VE NEGATIVE Urine barbiturates detection NEGATIVE N EGATIVE Screening urine tricyclic antidepressants detection NEGATIVE NEGATIVE Urine methadone detection by screening method NEGA TIVE NEGATIVE Urine oxycodone detection NEGATIVE NEGA TIVE Urine propoxyphene detection NEGATIVE N EGATIVE Bacterial urine culture - 05/27/19 11:15 Bacterial urine culture 3 OR MORE NRG COLONY COUNT 70,000 cfu/ml NRG FTX;REPORTABLE (GRAM POSITIVE) SUGGESTING PROBABLE NRG FREE TEXT ENTRY 2 COLLECTION CONTAMINATION WITH SK IN CARRIE NRG Blood CBC with ordered manual differenti al panel - 05/27/19 11:55 Blood leukocytes automated count (number/volume) 9.8 10*3/uL 4.3-11.0 Blood erythrocytes automated count (number/volume) 3.83 10*6/uL 4.35-5.85 Venous blood hemoglobin measurement (mass/volume) 11.4 g/dL 11.5-16.0 Blood hematocrit (volume fraction) 35 % 35-52 Automated erythrocyte mean corpuscular volume 92 [ foz_us] 80-99 Automated erythrocyte mean corpuscular h emoglobin (mass per erythrocyte) 30 pg 25-34 Automated erythrocyte mean corpuscular h emoglobin concentration measurement (mass/volume) 32 g/dL 32-36 Automated erythrocyte distribution width ratio 16. 0 % 10.0- 14.5 Automated blood platelet count (count/volume) 406 10*3/uL 130-400 Automated blood platelet mean volume measurement 9.2 [foz_us] 7.4-10.4 Automated blood neutrophils/100 leukocytes 61 % 42-75 Automated blood lymphocytes/100 leukocytes 31 % 12-44 Blood monocytes/100 leukocytes 5 % NRG Automated blood eosinophils/100 leukocytes 0 % 0-10 Automated blood basophils/100 leukocytes 0 % 0-10 Blood neutrophils automated count (number/volume) 5.9 10*3 1.8-7.8 Blood lymphocytes automated count (number/volume) 3.1 10*3 1.0-4.0 Blood monocytes automated count (number/volume) 0. 7 10*3 0.0-1.0 Automated eosinophil count 0.0 10*3/uL 0 .0-0.3 Automated blood basophil count (count/volume) 0.0 10*3/uL 0.0-0.1 Manual blood segmented neutrophils/100 leukocytes 64 % NRG Blood band neutrophils/100 leukocytes 0 % NRG Manual blood lymphocytes/100 leukocytes 31 % NRG Manual eosinophils/100 leukocytes in nose 0 % NRG Manual blood basophils/100 leukocytes 0 % NRG Blood erythrocyte morphology finding identification NORMAL NRG Comprehensive metabolic panel - 05/27/19 11:55 Serum or plasma sodium measurement (moles/volume) 134 mmol/L 135-145 Serum or plasma potassium measurement (moles/volume) 3.6 mmol/L 3.6-5.0 Serum or plasma chloride measurement (moles/volume) 99 mmol/L 98-107 Carbon dioxide 21 mmol/L 21-32 Serum or plasma anion gap determination (moles/volume) 14 mmol/L 5-14 Serum or plasma urea nitrogen measurement (mass/volume ) 5 mg/dL 7-18 Serum or plasma creatinine measurement (mass/volume) 0.56 mg/dL 0.60-1.30 Serum or plasma urea nitrogen/creatinine mass ratio 9 NRG Serum or plasma creatinine measurement w ith calculation of estimated glomerular filtration rate > NRG Serum or plasma glucose measurement (mass/volume) 95 mg/dL 70-105 Serum or plasma calcium measurement (mass/volume) 9.4 mg/dL 8.5-10.1 Serum or plasma total bilirubin measurement (mass/volu me) 0.3 mg/dL 0.1-1.0 Serum or plasma alkaline phosphatase henrique surement (enzymatic activity/volume) 76 U/L 40-136 Serum or plasma aspartate aminotransfera se measurement (enzymatic activity/volume) 23 U/L 5-34 Serum or plasma alanine aminotransferase measurement (enzymatic activity/volume) 13 U/L 0-55 Serum or plasma protein measurement (mass/volume) 7.5 g/dL 6.4-8.2 Serum or plasma albumin measurement (mass/volume) 4.7 g/dL 3.2-4.5 Complete urinalysis with reflex to cultu re - 05/29/19 11:00 Urine color determination YELLOW NRG Urine clarity determination CLEAR NR G Urine pH measurement by test strip 6.5 5-9 Specific gravity of urine by test strip 1.015 1.016-1.022 Urine protein assay by test strip, semi-quantitative NEGATIVE NEGATIVE Urine glucose detection by automated test strip NE GATIVE NEGATIVE Erythrocytes detection in urine sediment by light micr oscopy TRACE NEGATIVE Urine ketones detection by automated test strip NE GATIVE NEGATIVE Urine nitrite detection by test strip NEGATIVE NEGATIVE Urine total bilirubin detection by test strip NEGA TIVE NEGATIVE Urine urobilinogen measurement by automated test strip (mass/volume) 0.2 mg/dL < = 1.0 Urine leukocyte esterase detection by dipstick 2+ NEGATIVE Automated urine sediment erythrocyte cou nt by microscopy (number/high power field) [HPF] NRG Automated urine sediment leukocyte count by microscopy (number/high power field) [HPF] NRG Bacteria detection in urine sediment by light microsco py FEW NRG Squamous epithelial cells detection in u rine sediment by light microscopy 10-25 NRG Crystals detection in urine sediment by light microsco py NONE NRG Casts detection in urine sediment by light microscopy NONE NRG Mucus detection in urine sediment by light microscopy NEGATIVE NRG Complete urinalysis with reflex to culture YES NRG Urine Trichomonas species detection by light microscop y FEW NRG Urine drug screening test - 05/29/19 11: 00 Urine phencyclidine detection by screening method NEGATIVE NEGATIVE Urine benzodiazepines detection by screening method NEGATIVE NEGATIVE Urine cocaine detection NEGATIVE NEGATI VE Urine amphetamines detection by screening method N EGATIVE NEGATIVE Urine methamphetamine detection by screening method NEGATIVE NEGATIVE Urine cannabinoids detection by screening method N EGATIVE NEGATIVE Urine opiates detection by screening method NEGATI VE NEGATIVE Urine barbiturates detection NEGATIVE N EGATIVE Screening urine tricyclic antidepressants detection NEGATIVE NEGATIVE Urine methadone detection by screening method NEGA TIVE NEGATIVE Urine oxycodone detection NEGATIVE NEGA TIVE Urine propoxyphene detection NEGATIVE N EGATIVE Bacterial urine culture - 05/29/19 11:00 Bacterial urine culture 3 OR MORE NRG COLONY COUNT 10,000 CFU/ML NRG FTX;REPORTABLE GRAM POSITIVE ISOLATES; SUGGESTING NRG FREE TEXT ENTRY 2 PROBABLE COLLECTION CONTAMINATIO N WITH NRG Comprehensive metabolic panel - 05/29/19 11:13 Serum or plasma sodium measurement (moles/volume) 135 mmol/L 135-145 Serum or plasma potassium measurement (moles/volume) 4.2 mmol/L 3.6-5.0 Serum or plasma chloride measurement (moles/volume) 100 mmol/L 98-107 Carbon dioxide 24 mmol/L 21-32 Serum or plasma anion gap determination (moles/volume) 11 mmol/L 5-14 Serum or plasma urea nitrogen measurement (mass/volume ) 4 mg/dL 7-18 Serum or plasma creatinine measurement (mass/volume) 0.56 mg/dL 0.60-1.30 Serum or plasma urea nitrogen/creatinine mass ratio 7 NRG Serum or plasma creatinine measurement w ith calculation of estimated glomerular filtration rate > NRG Serum or plasma glucose measurement (mass/volume) 83 mg/dL 70-105 Serum or plasma calcium measurement (mass/volume) 9.1 mg/dL 8.5-10.1 Serum or plasma total bilirubin measurement (mass/volu me) 0.3 mg/dL 0.1-1.0 Serum or plasma alkaline phosphatase henrique surement (enzymatic activity/volume) 73 U/L 40-136 Serum or plasma aspartate aminotransfera se measurement (enzymatic activity/volume) 24 U/L 5-34 Serum or plasma alanine aminotransferase measurement (enzymatic activity/volume) 14 U/L 0-55 Serum or plasma protein measurement (mass/volume) 7.3 g/dL 6.4-8.2 Serum or plasma albumin measurement (mass/volume) 4.6 g/dL 3.2-4.5 Complete blood count (CBC) with automate d white blood cell (WBC) differential - 05/29/19 11:13 Blood leukocytes automated count (number/volume) 7.1 10*3/uL 4.3-11.0 Blood erythrocytes automated count (number/volume) 3.65 10*6/uL 4.35-5.85 Venous blood hemoglobin measurement (mass/volume) 11.1 g/dL 11.5-16.0 Blood hematocrit (volume fraction) 34 % 35-52 Automated erythrocyte mean corpuscular volume 93 [ foz_us] 80-99 Automated erythrocyte mean corpuscular h emoglobin (mass per erythrocyte) 30 pg 25-34 Automated erythrocyte mean corpuscular h emoglobin concentration measurement (mass/volume) 33 g/dL 32-36 Automated erythrocyte distribution width ratio 15. 9 % 10.0- 14.5 Automated blood platelet count (count/volume) 396 10*3/uL 130-400 Automated blood platelet mean volume measurement 9.1 [foz_us] 7.4-10.4 Automated blood neutrophils/100 leukocytes 68 % 42-75 Automated blood lymphocytes/100 leukocytes 25 % 12-44 Blood monocytes/100 leukocytes 7 % 0-12 Automated blood eosinophils/100 leukocytes 0 % 0-10 Automated blood basophils/100 leukocytes 0 % 0-10 Blood neutrophils automated count (number/volume) 4.8 10*3 1.8-7.8 Blood lymphocytes automated count (number/volume) 1.8 10*3 1.0-4.0 Blood monocytes automated count (number/volume) 0. 5 10*3 0.0-1.0 Automated eosinophil count 0.0 10*3/uL 0 .0-0.3 Automated blood basophil count (count/volume) 0.0 10*3/uL 0.0-0.1 Encounters ACCT No. Visit Date/Time Discharge Status Pt. Type Provider Facility Loc./Unit Complaint [id number] 05/16/2019 14:00:00 05/16/2019 23:59: 59 [facility] [id number] 05/16/2019 13:00:00 Document Registration [id number] 03/17/2019 10:30:00 Document Registration [id number] 08/09/2018 11:00:00 Document Registration [id number] 10/24/2019 11:07:00 12:05:00 DIS Emergency [place] ROGEL DO [facility] ER FS NAUSEA [id number] 2019 10:44:00 12:44:00 DIS Emergency MICHAEL NELSON, MELANIE Galan [facility] ER FS KIDNEY PAIN [id number] 05/27/2019 11:07:00 12:45:00 DIS Emergency LUCILA NELSON, SOCO Wilder [facility] ER FS PSYCH EVAL [id number] 05/16/2019 19:54:00 20:58:00 DIS Emergency NAILA NELSON, JOSE Craft [facility] ER FS POSSIBLE STD [id number] 04/30/2019 20:59:00 22:04:00 DIS Emergency RIYA RIOS MD [facility] ER FS NAUSEA/VOMITTING [id number] 03/17/2019 09:27:00 23:59:59 CLS Outpatient DOMENIC NELSON, CAMILLE Rivera [facility] RAD FS R10.2 [id number] 03/09/2019 14:56:00 16:12:00 DIS Emergency MICHAEL NELSON, MELANIE Galan [facility] ER FS DIZZINESS [id number] 01/25/2019 17:28:00 18:08:00 DIS Emergency MICHAEL NELSON, MELANIE Galan [facility] ER FS VOMITING [id number] 01/06/2019 19:54:00 21:48:00 DIS Emergency NAILA NELSON, JOSE Craft [facility] FS ANKLE LAC [id number] 01/03/2019 23:45:00 01:52:00 DIS Emergency FER NELSON, GUIDO Martin [facility] ER FS DETOX [id number] 12/06/2018 22:12:00 00:17:00 DIS SUKHDEEP Ro DO [facility] ER FS MENTAL HEALTH SCREENING [id number] 12/06/2018 20:01:00 20:32:00 DIS Emergency SUKHDEEP MCCULLOUGH DO [facility] ER FS MENTAL HEALTH SCREENING [id number] 11/28/2018 04:32:00 05:47:00 DIS SUKHDEEP Ro DO [facility] ER FS VAGINAL ISSUES [id number] 11/22/2018 01:23:00 03:20:00 DIS Emergency NAILA NELSON, JOSE Craft [facility] ER FS ESPINOZA TO BOTTOM [id number] 10/21/2018 20:32:00 22:08:00 DIS SUKHDEEP Ro DO [facility] ER FS BACK PAIN,VOMITING [id number] 08/06/2018 15:37:00 17:50:00 DIS Emergency MICHAEL NELSON, MELANIE Galan [facility] ER FS POSSIBLE SPRAIN RT ANKL E
== END 2019-10-24 12:05 | disposition home or self-care (01) ==
LOC: EDUNIT# 11:05 → ER FS 11:07
DX: L08.9 Local infection of the skin and subcutaneous tissue, unspecified (principal); R11.0 Nausea; J45.909 Unspecified asthma, uncomplicated; Z88.1 Allergy status to other antibiotic agents; Z91.040 Latex allergy status; Z90.49 Acquired absence of other specified parts of digestive tract; Z98.51 Tubal ligation status
CPT/HCPCS: 99282

== ENCOUNTER 2019-11-06 20:38 | Emergency (ER) | payer MEDICAID ==
[~2019-11-06] VITALS: Ht 160 cm; Wt 68.8 kg
[~2019-11-06 20:38] MED LIST changes: +MUPI15CR11 TP
--- NOTE | 2019-11-06 21:01 | ED General ---
General Stated Complaint: BACK PAIN,NAUSEA,HEADACHES Source of Information: Patient, RN/MD, RN Notes Reviewed Exam Limitations: No Limitations History of Present Illness Date Seen by Provider: Nov 06, 2019 Time Seen by Provider: 20:45 Initial Comments This patient is a 39-year-old female presents to the emergency department for multiple vague complaints. Patient relates in the emergency department without difficulty. Patient states that she has concerns that she has developed EMS. But does not have any specific symptoms of MS. Patient admits that she does not take medications for the same. Patient does take multiple medications for anxiety and depression issues. Patient states that she believes she might be hypoglycemic. However and she also admits that she drinks 3-4 regular sodas a day. Glucose check at the bedside glucose was 115. Patient also states that she thinks she might have a urinary tract infection swelling we'll check her urine. Patient was offered full medical screening exam the patient declines and checking her blood glucose in her urine. Patient also requests something for pain however patient's has no specific complaints of pain. Specifically the patient's blood pressure which is seemed to be a little low 90s over 63 and the patient states her blood pressure is always low like this. Again offered full medical screening exam and evaluate and treat further machinery and declined exam. I advised the patient could not give her any controlled pain medications for the same that she will need discuss with her primary care physician. Patient states understanding is only agreeable to her glucose check and urinalysis. Patient ambulates in the emergency department without difficulty and has no signs or complaints of dizziness or other low blood pressure symptoms. Timing/Duration: Other Associated Systoms: Denies Symptoms Allergies and Home Medications Allergies Coded Allergies: clindamycin (Unverified Adverse Reaction, Unknown, 10/21/18) latex (Unverified Adverse Reaction, Unknown, 10/21/18) Home Medications Albuterol Sulfate 1 Puff Puff, 2 PUFF IH Q4H PRN for SHORTNESS OF BREATH 1 PUFF = 90 MCG Prescribed by: GUIDO DAVILA on 01/04/19 0146 Cephalexin 500 Mg Capsule, 500 MG PO QID Prescribed by: SOCO GAYTAN on 05/27/19 1239 Ciprofloxacin HCl 500 Mg Tablet, 500 MG PO BID Prescribed by: JOSE YOO on 05/16/192051 Docusate Sodium 100 Mg Capsule, 100 MG PO DAILY Prescribed by: SUKHDEEP MCCULLOUGH on 11/28/18 0544 Metronidazole 500 Mg Tablet, 500 MG PO BID Prescribed by: MELANIE RODRIGUEZ on 05/29/19 1201 Mupirocin Calcium 15 Gm Cream..g., 15 GM TP TID Prescribed by: INDIA ROGEL on 10/24/19 1155 Nystatin 15 Gm Cream..g., 1 GM TP BID Prescribed by: MELANIE RODRIGUEZ on 05/29/19 1113 Omeprazole 40 Mg Capsule.dr, 40 MG PO DAILY Prescribed by: MELANIE RODRIGUEZ on 01/25/19 175 Omeprazole 40 Mg Capsule.dr, 40 MG PO DAILY Prescribed by: MELANIE RODRIGUEZ on 03/09/19 1608 Ondansetron 4 Mg Tab.rapdis, 4 MG PO Q6H Prescribed by: SUKHDEEP MCCULLOUGH on 10/21/182204 Ondansetron 4 Mg Tab.rapdis, 4 MG PO Q6H PRN for NAUSEA/VOMITING Prescribed by: MELANIE RODRIGUEZ on 01/25/19 175 Ondansetron 4 Mg Tab.rapdis, 4 MG PO Q6H PRN for NAUSEA/VOMITING Prescribed by: MELANIE RODRIGUEZ on 03/09/19 1608 Ondansetron 4 Mg Tab.rapdis, 4 MG PO Q6H PRN for NAUSEA/VOMITING Prescribed by: INDIA ROGEL on 10/24/19 115 Sulfamethoxazole/Trimethoprim 1 Each Tablet, 1 EACH PO BID Prescribed by: JOSE YOO on 01/06/192143 Sulfamethoxazole/Trimethoprim 1 Each Tablet, 1 EACH PO BID Prescribed by: RIYA RIOS on 04/30/192155 Tramadol HCl 50 Mg Tablet, 50 MG PO Q6H PRN for PAIN Prescribed by: SUKHDEEP MCCULLOUGH on 11/28/1844 Patient Home Medication List Home Medication List Reviewed: Yes Review of Systems Review of Systems Constitutional: No no symptoms reported; see HPI; No chills, No diaphoresis, No dizziness, No fever, No malaise, No weakness, No weight gain, No weight loss, No other EENTM: No see HPI, No no symptoms reported, No ear discharge, No hearing loss, No ear pain, No blurred vision, No double vision, No eye pain, No tearing, No vision loss, No dental problems, No hoarseness, No mouth pain, No mouth swelling, No epistaxis, No nose congestion, No nose pain, No throat pain, No throat swelling, No other Respiratory: No no symptoms reported, No see HPI, No cough, No dyspnea on exertion, No hemoptysis, No orthopnea, No phlegm, No short of breath, No stridor, No wheezing, No other Cardiovascular: No no symptoms reported, No see HPI, No chest pain, No edema, No Hx of Intervention, No palpitations, No syncope, No vascular heart diseas, No other Gastrointestinal: No RUQ, No LUQ, No RLQ, No LLQ, No no symptoms reported, No see HPI, No abdominal pain, No constipation, No diarrhea, No dysphagia, No hematemesis, No heartburn, No jaundice, No loss of appetite, No melena, No nausea, No vomiting, No other Musculoskeletal: No no symptoms reported; see HPI, back pain; No gout, No joint pain, No joint swelling, No muscle pain, No muscle stiffness, No muscle cramps, No muscle twitching, No muscle weakness, No neck pain, No other Skin: No no symptoms reported, No see HPI, No change in color, No change in hair/nails, No dryness, No hx of skin cancer, No lesions, No lumps, No pruritus, No rash, No other Psychiatric/Neurological: See HPI All Other Systems Reviewed Negative Unless Noted: Yes Past Vdrepid-Hpdjmu-Dyrsnm Hx Patient Social History Alcohol Beverage of Choice: Beer Drug of Choice: METH Type Used: Cigarettes 2nd Hand Smoke Exposure: No Recent Foreign Travel: No Contact w/Someone Who Travel: No Recent Hopitalizations: No Immunizations Up To Date Tetanus Booster (TDap): Less than 5yrs Seasonal Allergies Seasonal Allergies: No Past Medical History Surgeries: Yes (C/S) Appendectomy, Section, Tubal Ligation Respiratory: Yes Asthma, COPD Cardiac: No Neurological: Yes (EPILEPSY) Seizure Disorder Genitourinary: No Gastrointestinal: Yes Liver Disease/Jaundice Musculoskeletal: No Endocrine: No HEENT: No Cancer: No Psychosocial: Yes Anxiety, Schizophrenia Integumentary: No Blood Disorders: No Physical Exam Vital Signs Vital Signs - First Documented 11/06/19 20:45 Temp 37.3 Pulse 96 Resp 18 Pulse Ox 99 O2 Delivery Room Air Capillary Refill : Height, Weight, BMI Height: 5'4.00" Weight: 134lbs. 0oz. 60.680823fu; 26.00 BMI Method:Stated General Appearance: No Apparent Distress, WD/WN HEENT: PERRL/EOMI, TMs Normal, Normal ENT Inspection, Pharynx Normal Neck: Full Range of Motion, Normal Inspection, Non Tender, Supple Respiratory: Chest Non Tender, Lungs Clear, Normal Breath Sounds, No Accessory Muscle Use, No Respiratory Distress Cardiovascular: Regular Rate, Rhythm, No Edema, No Gallop, No JVD, No Murmur, Normal Peripheral Pulses Gastrointestinal: Normal Bowel Sounds, No Organomegaly, No Pulsatile Mass, Non Tender, Soft Back: Normal Inspection, No CVA Tenderness, No Vertebral Tenderness Extremity: Normal Capillary Refill, Normal Inspection, Normal Range of Motion, Non Tender, No Calf Tenderness, No Pedal Edema Skin: Normal Color, Warm/Dry Progress/Results/Core Measures Suspected Sepsis SIRS Temperature: Pulse: Respiratory Rate: Blood Pressure / Mean: Results/Orders Lab Results Laboratory Tests Test 11/06/19 20:56 11/06/19 21:00 Range/Units Glucometer 115 H 70-110 MG/DL Urine Color DARK YELLOW Urine Clarity CLEAR Urine pH 6.0 5-9 Urine Specific [place] 1.015 L 1.016-1.022 Urine Protein NEGATIVE NEGATIVE Urine Glucose (UA) NEGATIVE NEGATIVE Urine Ketones NEGATIVE NEGATIVE Urine Nitrite NEGATIVE NEGATIVE Urine Bilirubin NEGATIVE NEGATIVE Urine Urobilinogen 0.2 < = 1.0 MG/DL Urine Leukocyte Esterase NEGATIVE NEGATIVE Urine RBC (Auto) 3+ H NEGATIVE Urine RBC 2-5 H /HPF Urine WBC 0-2 /HPF Urine Squamous Epithelial Cells 5-10 /HPF Urine Crystals NONE /LPF Urine Bacteria TRACE /HPF Urine Casts NONE /LPF Urine Mucus SMALL H /LPF Urine Culture Indicated NO Urine Opiates Screen NEGATIVE NEGATIVE Urine Oxycodone Screen NEGATIVE NEGATIVE Urine Methadone Screen NEGATIVE NEGATIVE Urine Propoxyphene Screen NEGATIVE NEGATIVE Urine Barbiturates Screen NEGATIVE NEGATIVE Ur Tricyclic Antidepressants Screen NEGATIVE NEGATIVE Urine Phencyclidine Screen NEGATIVE NEGATIVE Urine Amphetamines Screen NEGATIVE NEGATIVE Urine Methamphetamines Screen NEGATIVE NEGATIVE Urine Benzodiazepines Screen NEGATIVE NEGATIVE Urine Cocaine Screen NEGATIVE NEGATIVE Urine Cannabinoids Screen NEGATIVE NEGATIVE My Orders Orders - YASMIN ALICEA MD Drug Screen Stat (Urine) (11/06/19 20:57) Urinalysis (11/06/19 20:57) Vital Signs/I&O 11/06/19 20:45 Temp 37.3 Pulse 96 Resp 18 B/P (MAP) Pulse Ox 99 O2 Delivery Room Air Capillary Refill : Progress Note : Time: 21:27 Progress Note Negative evaluation in the emergency department. Chronic conditions appear to be stable. Encourage by mouth fluids. Continue all home medications. Follow-up with your primary care physician in 2-3 days. Schedule a follow-up appointment. Tylenol Motrin as needed for pain. Departure Impression Primary Impression: Musculoskeletal pain Disposition: HOME, SELF-CARE Condition: Stable Departure-Patient Inst. Decision time for Depature: 21:28 Referrals: CAMILLE SHETH MD (PCP/Family) Primary Care Physician Add. Discharge Instructions: Encourage by mouth fluids. Continue all home medications. Follow-up with your primary care physician in 2-3 days. Schedule a follow-up appointment. Tylenol Motrin as needed for pain. YASMIN ALICEA MD Nov 06, 2019 21:01
[2019-11-06 21:13] LABS: BILIRUBIN,URINE NEGATIVE (NEGATIVE); CLARITY,URINE CLEAR; COLOR,URINE DARK YELLOW; GLUCOSE, URINE (UA) NEGATIVE (NEGATIVE); KETONES,URINE NEGATIVE (NEGATIVE); LEUKOCYTE ESTERASE ,URINE NEGATIVE (NEGATIVE); NITRITE,URINE NEGATIVE (NEGATIVE); PROTEIN,URINE NEGATIVE (NEGATIVE); WBC,URINE 0-2 /HPF
[2019-11-06 21:14] LABS: BACTERIA,URINE TRACE /HPF
[2019-11-06 21:18] LABS: AMPHETAMINE SCREEN, URINE NEGATIVE (NEGATIVE); BARBITURATE SCREEN URINE NEGATIVE (NEGATIVE); BENZODIAZEPINES SCREEN URINE NEGATIVE (NEGATIVE); CANNABINOID SCREEN, URINE NEGATIVE (NEGATIVE); COCAINE SCREEN URINE NEGATIVE (NEGATIVE); METHADONE STAT NEGATIVE (NEGATIVE); METHAMPHETAMINE SCREEN URINE S NEGATIVE (NEGATIVE); OPIATE SCREEN URINE NEGATIVE (NEGATIVE); OXYCODONE STAT NEGATIVE (NEGATIVE); PROPOXYPHENE STAT NEGATIVE (NEGATIVE); TRICYCLIC ANTIDEPRESSANTS SCRE NEGATIVE (NEGATIVE)
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
== END 2019-11-06 21:29 | disposition home or self-care (01) ==
LOC: EDUNIT# 20:38 → ER FS 20:39
DX: M54.9 Dorsalgia, unspecified (principal); F41.9 Anxiety disorder, unspecified; F32.9 Major depressive disorder, single episode, unspecified; J44.9 Chronic obstructive pulmonary disease, unspecified; Z88.1 Allergy status to other antibiotic agents; Z91.040 Latex allergy status
CPT/HCPCS: 80306; 81000; 82962; 99281

== ENCOUNTER 2019-11-27 16:38 | Emergency (ER) | payer MEDICAID ==
[~2019-11-27] VITALS: Ht 160 cm; Wt 68.0 kg
[2019-11-27] MEDS ORDERED: morphine INJ 10 MG/ML 1ML (SYR OR VIAL) IVP STA (17:05)
--- NOTE | 2019-11-27 17:06 | ED General ---
General Chief Complaint: Abdominal/GI Problems Stated Complaint: VOMITING,NAUSEA Nursing Triage Note: VOMIT X 2 TODAY DIARRHEA YESTERDAY RT EAR HURTS Nursing Sepsis Screen: No Definite Risk (SANTOS ONEAL DO) History of Present Illness Date Seen by Provider: Nov 27, 2019 Time Seen by Provider: 17:06 Initial Comments Patient presenting to emergency department for evaluation of multiple complaints including abdominal pain nausea vomiting diarrhea and right ear pain. The right ear pain has been going on for several days after swimming and she says this feels similar to prior swimmer's ear. The nausea vomiting and diarrhea started yesterday and the abdominal pain started in her bilateral lower quadrants. The emesis has been approximately 10 times a day and it is nonbloody nonbilious and distress whatever she drinks or tries to eat. She says the diarrhea is nonbloody. She denies any recent travel but says that she was on antibiotics a month ago but she does not remember what it was or what it was for. She said she has had an appendectomy and 2 C-sections. She is in no obvious distress with normal vital signs. (SANTOS ONEAL DO) Allergies and Home Medications Allergies Coded Allergies: clindamycin (Unverified Adverse Reaction, Unknown, 10/21/18) latex (Unverified Adverse Reaction, Unknown, 10/21/18) Home Medications Albuterol Sulfate 1 Puff Puff, 2 PUFF IH Q4H PRN for SHORTNESS OF BREATH 1 PUFF = 90 MCG Prescribed by: GUIDO DAVILA on 01/04/19 0146 Cephalexin 500 Mg Capsule, 500 MG PO QID Prescribed by: SOCO GAYTAN on 05/27/19 1239 Ciprofloxacin HCl 500 Mg Tablet, 500 MG PO BID Prescribed by: JOSE YOO on 05/16/192051 Ciprofloxacin HCl/Dexameth 7.5 Ml Soln, 4 DROPS OT BID Prescribed by: MELANIE RODRIGUEZ on 11/27/19 182 Docusate Sodium 100 Mg Capsule, 100 MG PO DAILY Prescribed by: SUKHDEEP MCCULLOUGH on 11/28/18 0544 Metronidazole 500 Mg Tablet, 500 MG PO BID Prescribed by: MELANIE RODRIGUEZ on 05/29/19 1201 Mupirocin Calcium 15 Gm Cream..g., 15 GM TP TID Prescribed by: INDIA ROGEL on 10/24/19 1155 Nystatin 15 Gm Cream..g., 1 GM TP BID Prescribed by: MELANIE RODRIGUEZ on 05/29/19 1113 Omeprazole 40 Mg Capsule.dr, 40 MG PO DAILY Prescribed by: MELANIE RODRIGUEZ on 01/25/19 1757 Omeprazole 40 Mg Capsule.dr, 40 MG PO DAILY Prescribed by: MELANIE RODRIGUEZ on 03/09/19 1608 Ondansetron 4 Mg Tab.rapdis, 4 MG PO Q6H Prescribed by: SUKHDEEP MCCULLOUGH on 10/21/18 2205 Ondansetron 4 Mg Tab.rapdis, 4 MG PO Q6H PRN for NAUSEA/VOMITING Prescribed by: MELANIE RODRIGUEZ on 01/25/19 175 Ondansetron 4 Mg Tab.rapdis, 4 MG PO Q6H PRN for NAUSEA/VOMITING Prescribed by: MELANIE RODRIGUEZ on 03/09/19 1608 Ondansetron 4 Mg Tab.rapdis, 4 MG PO Q6H PRN for NAUSEA/VOMITING Prescribed by: INDIA ROGEL on 10/24/19 1155 Ondansetron 4 Mg Tab.rapdis, 4 MG PO Q6H PRN for NAUSEA/VOMITING Prescribed by: MELANIE RODRIGUEZ on 11/27/19 1820 Sulfamethoxazole/Trimethoprim 1 Each Tablet, 1 EACH PO BID Prescribed by: JOSE YOO on 01/06/19 2144 Sulfamethoxazole/Trimethoprim 1 Each Tablet, 1 EACH PO BID Prescribed by: RIYA RIOS on 04/30/19 215 Tramadol HCl 50 Mg Tablet, 50 MG PO Q6H PRN for PAIN Prescribed by: SUKHDEEP MCCULLOUGH on 11/28/18 0544 Patient Home Medication List Home Medication List Reviewed: Yes (SANTOS ONEAL DO) Review of Systems Review of Systems Constitutional: no symptoms reported EENTM: no symptoms reported Respiratory: no symptoms reported Cardiovascular: no symptoms reported Gastrointestinal: abdominal pain, diarrhea, nausea, vomiting Genitourinary: no symptoms reported Musculoskeletal: no symptoms reported Skin: no symptoms reported Psychiatric/Neurological: No Symptoms Reported (SANTOS ONEAL DO) All Other Systems Reviewed Negative Unless Noted: Yes (SANTOS ONEAL DO) Past Urjmqar-Vqnvds-Dendyd Hx Patient Social History Alcohol Use: Denies Use Number of Drinks Today: AA Alcohol Beverage of Choice: Beer Recreational Drug Use: Yes Drug of Choice: METH Smoking Status: Current Everyday Smoker Type Used: Cigarettes 2nd Hand Smoke Exposure: No Recent Foreign Travel: No Contact w/Someone Who Travel: No Recent Infectious Disease Expo: No Recent Hopitalizations: No Physical Abuse: No Sexual Abuse: No Mistreated: No Fear: No (SANTOS ONEAL DO) Immunizations Up To Date Tetanus Booster (TDap): Less than 5yrs (SANTOS ONEAL DO) Seasonal Allergies Seasonal Allergies: No (SANTOS ONEAL DO) Past Medical History Surgeries: Yes (C/S X 3) Appendectomy, Section, Tubal Ligation Respiratory: Yes Asthma, COPD Cardiac: No Neurological: Yes (EPILEPSY) Multiple Sclerosis, Neuropathy, Seizure Disorder Genitourinary: No Gastrointestinal: Yes Liver Disease/Jaundice Musculoskeletal: No Endocrine: No HEENT: No Cancer: No Psychosocial: Yes Anxiety, Schizophrenia Integumentary: No Blood Disorders: No (SANTOS ONEAL DO) Physical Exam Vital Signs Vital Signs - First Documented 11/27/19 16:58 Temp 36.4 Pulse 101 Resp 18 B/P (MAP) 117/77 (90) Pulse Ox 99 O2 Delivery Room Air (MELANIE RODRIGUEZ) Vital Signs Capillary Refill : Less Than 3 Seconds (SANTOS ONEAL DO) Height, Weight, BMI Height: 5'4.00" Weight: 134lbs. 0oz. 60.886090in; 26.00 BMI Method:Stated General Appearance: No Apparent Distress, WD/WN HEENT: PERRL/EOMI, Other (R canal with erythema and non-obstructing wax noted. No mastoid pain but has tragus pain.) Neck: Supple Respiratory: No Respiratory Distress Cardiovascular: Regular Rate, Rhythm Gastrointestinal: Soft, Tenderness (BL lower quadrants) Back: Normal Inspection Extremity: Normal Capillary Refill Neurologic/Psychiatric: Alert, Oriented x3 Skin: Warm/Dry (SANTOS ONEAL DO) Progress/Results/Core Measures Suspected Sepsis Recent Fever Within 48 Hours: No Infection Criteria Present: None New/Unexplained Altered Menta: No Sepsis Screen: No Definite Risk SIRS Temperature: Pulse: 101 Respiratory Rate: 18 Laboratory Tests 11/27/19 17:11: White Blood Count 15.4H Blood Pressure 117 /77 Mean: 90 Laboratory Tests 11/27/19 17:11: Creatinine 0.65, Platelet Count 389, Total Bilirubin 0.2 (SANTOS ONEAL DO) Results/Orders Lab Results Laboratory Tests Test 11/27/19 16:52 11/27/19 17:11 Range/Units Urine Color YELLOW Urine Clarity CLEAR Urine pH 5.5 5-9 Urine Specific [place] 1.010 L 1.016-1.022 Urine Protein NEGATIVE NEGATIVE Urine Glucose (UA) NEGATIVE NEGATIVE Urine Ketones NEGATIVE NEGATIVE Urine Nitrite NEGATIVE NEGATIVE Urine Bilirubin NEGATIVE NEGATIVE Urine Urobilinogen 0.2 < = 1.0 MG/DL Urine Leukocyte Esterase NEGATIVE NEGATIVE Urine RBC (Auto) NEGATIVE NEGATIVE Urine RBC NONE /HPF Urine WBC 0-2 /HPF Urine Squamous Epithelial Cells 5-10 /HPF Urine Crystals NONE /LPF Urine Bacteria TRACE /HPF Urine Casts NONE /LPF Urine Mucus NEGATIVE /LPF Urine Culture Indicated NO Urine Test NEGATIVE NEGATIVE White Blood Count 15.4 H 4.3-11.0 10^3/uL Red Blood Count 4.12 L 4.35-5.85 10^6/uL Hemoglobin 12.3 11.5-16.0 G/DL Hematocrit 36 35-52 % Mean Corpuscular Volume 87 80-99 FL Mean Corpuscular Hemoglobin 30 25-34 PG Mean Corpuscular Hemoglobin Concent 34 32-36 G/DL Red Cell Distribution Width 16.1 H 10.0-14.5 % Platelet Count 389 130-400 10^3/uL Mean Platelet Volume 9.2 7.4-10.4 FL Neutrophils (%) (Auto) 73 42-75 % Lymphocytes (%) (Auto) 20 12-44 % Monocytes (%) (Auto) 6 0-12 % Eosinophils (%) (Auto) 0 0-10 % Basophils (%) (Auto) 0 0-10 % Neutrophils # (Auto) 11.2 H 1.8-7.8 X 10^3 Lymphocytes # (Auto) 3.1 1.0-4.0 X 10^3 Monocytes # (Auto) 0.9 0.0-1.0 X 10^3 Eosinophils # (Auto) 0.1 0.0-0.3 10^3/uL Basophils # (Auto) 0.0 0.0-0.1 10^3/uL Neutrophils % (Manual) 74 % Lymphocytes % (Manual) 20 % Monocytes % (Manual) 2 % Eosinophils % (Manual) 1 % Reactive Lymphocytes 3 % Sodium Level 138 135-145 MMOL/L Potassium Level 3.9 3.6-5.0 MMOL/L Chloride Level 106 98-107 MMOL/L Carbon Dioxide Level 22 21-32 MMOL/L Anion Gap 10 5-14 MMOL/L Blood Urea Nitrogen 9 7-18 MG/DL Creatinine 0.65 0.60-1.30 MG/DL Estimat Glomerular Filtration Rate > 60 BUN/Creatinine Ratio 14 Glucose Level 103 70-105 MG/DL Calcium Level 9.6 8.5-10.1 MG/DL Corrected Calcium 8.5-10.1 MG/DL Total Bilirubin 0.2 0.1-1.0 MG/DL Aspartate Amino Transf (AST/SGOT) 18 5-34 U/L Alanine Aminotransferase (ALT/SGPT) 13 0-55 U/L Alkaline Phosphatase 68 40-136 U/L Total Protein 7.1 6.4-8.2 GM/DL Albumin 4.7 H 3.2-4.5 GM/DL Lipase 22 8-78 U/L (MELANIE RODRIGUEZ) Medications Given in ED Current Medications Medications Dose Ordered Sig/Anabel Route Start Time Stop Time Status Last Admin Dose Admin Iohexol 100 ml ONCE ONCE IV 11/27/19 17:15 11/27/19 17:16 DC 11/27/19 17:32 100 ML Ondansetron HCl 4 mg ONCE ONCE IVP 11/27/19 17:15 11/27/19 17:16 DC 11/27/19 17:18 4 MG Sodium Chloride 10 ml NEEDED PRN IV 11/27/19 17:15 11/27/19 18:30 DC 11/27/19 17:33 10 ML Sodium Chloride 100 ml ONCE ONCE IV 11/27/19 17:15 11/27/19 17:16 DC 11/27/19 17:33 100 ML (MELANIE RODRIGUEZ) Vital Signs/I&O 11/27/19 11/27/19 16:58 18:18 Temp 36.4 36.8 Pulse 101 88 Resp 18 16 B/P (MAP) 117/77 (90) 116/80 Pulse Ox 99 99 O2 Delivery Room Air Room Air (MELANIE RODRIGUEZ) Vital Signs/I&O Capillary Refill : Less Than 3 Seconds (SANTOS ONEAL DO) Blood Pressure Mean: 90 Progress Note : Progress Note Patient with symptoms most likely consistent with a gastroenteritis. I will check labs CT treat symptoms and reassess. (SANTOS ONEAL DO) Diagnostic Imaging Diagonstic Imaging: CT Plain Films/CT/US/NM/MRI: abdomen, pelvis Comments [facility] [place], [place] NAME: PETAR PASTOR [facility] REC#: [id number] PT STATUS: REG ER : 1980 PHYSICIAN: SANTOS ONEAL DO ADMIT DATE: 11/27/19/ER FS Draft Date of Exam:11/27/19 CT ABDOMEN/PELVIS W PROCEDURE: CT abdomen and pelvis with contrast. TECHNIQUE: Multiple contiguous axial images were obtained through the abdomen and pelvis after administration of intravenous contrast. Auto Exposure Controls were utilized during the CT exam to meet ALARA standards for radiation dose reduction. INDICATION: Nausea, vomiting, pain. COMPARISON: 06/08/2019. FINDINGS: The visualized lung bases are clear. The liver, spleen, adrenal glands and pancreas are unremarkable. The gallbladder is unremarkable. The bilateral kidneys are unremarkable. No aneurysmal dilatation of the abdominal aorta. The urinary bladder is unremarkable. A 1.5 cm peripherally enhancing lesion within the left ovary is present. Otherwise, adnexal structures are unremarkable for age. The appendix is not definitely visualized, though no secondary signs of acute appendicitis are seen. No bowel obstruction or pneumatosis. No significant adenopathy, free air or free fluid within the abdomen or pelvis. No acute osseous abnormality. IMPRESSION: 1. There is a 1.5 cm lesion within the left ovary which is felt to relate to involuting follicle/hemorrhagic cyst. 2. Additional nonacute findings, as above. Dictated on workstation # [id number] Dict: 11/27/19 1756 Trans: 11/27/19 1807 [facility] [id number] Interpreted by: PRETTY JOYCE MD Electronically signed by: Reviewed: Reviewed by Me (MELANIE RODRIGUEZ) Departure Impression Primary Impression: Abdominal pain Qualified Codes: R10.30 - Lower abdominal pain, unspecified Additional Impressions: Nausea and vomiting Qualified Codes: R11.2 - Nausea with vomiting, unspecified Diarrhea Qualified Codes: R19.7 - Diarrhea, unspecified Otitis externa Qualified Codes: H60.339 - Swimmer's ear, unspecified ear Ovarian cyst Qualified Codes: N83.202 - Unspecified ovarian cyst, left side Disposition: 01 HOME, SELF-CARE Condition: Stable Departure-Patient Inst. Decision time for Depature: 18:18 (MELANIE RODRIGUEZ) Referrals: CAMILLE SHETH MD (PCP/Family) Primary Care Physician Patient Instructions: Ovarian Cyst (DC) Add. Discharge Instructions: Drink plenty of Fluids. Ondansetron one tablet every 6 hours as necessary for nausea. Ibuprofen 800 mg every 8 hours as necessary for pain. Tylenol 1000 mg every 8 hours as necessary for pain. Warm moist heating pads applied to the abdomen can be helpful for pain. Imodium 2 tablets followed by one tablet afterwards every 4 hours if you're still having loose watery stools. Ciprodex 4 drops in the affected ear twice a day for the next week. All discharge instructions reviewed with patient and/or family. Voiced understanding. Scripts Ciprofloxacin HCl/Dexameth (Ciprodex Otic Suspension) 7.5 Ml Soln 4 DROPS OT BID for 7 Days, #7.5 ML 0 Refills Prov: MELANIE RODRIGUEZ 11/27/19 Ondansetron (Ondansetron Odt) 4 Mg Tab.rapdis 4 MG PO Q6H PRN for NAUSEA/VOMITING, #8 TAB 0 Refills Prov: MELANIE RODRIGUEZ 11/27/19 SANTOS ONEAL DO Nov 27, 2019 17:06 MELANIE RODRIGUEZ Nov 27, 2019 18:22
[2019-11-27 17:10] LABS: BILIRUBIN,URINE NEGATIVE (NEGATIVE); CLARITY,URINE CLEAR; COLOR,URINE YELLOW; GLUCOSE, URINE (UA) NEGATIVE (NEGATIVE); KETONES,URINE NEGATIVE (NEGATIVE); LEUKOCYTE ESTERASE ,URINE NEGATIVE (NEGATIVE); NITRITE,URINE NEGATIVE (NEGATIVE); PH,URINE 5.5 (5-9); PROTEIN,URINE NEGATIVE (NEGATIVE)
[2019-11-27 17:11] LABS: BACTERIA,URINE TRACE /HPF; WBC,URINE 0-2 /HPF
[2019-11-27] MEDS ORDERED: NS IV 1000 ML 1,000 ML IV SCH (17:15)
[2019-11-27] MEDS ORDERED: HOLD METFORMIN - RECEIVED CONTRAST 20 ML VIAL IV SCH (17:15)
[2019-11-27] MEDS ORDERED: NS 100 ML (IVPB) BAG IV ONE (17:15)
[2019-11-27] MEDS ORDERED: IOHEXOL 350 MG/ML 100 ML (OMNIPAQUE 350) VIAL IV ONE (17:15)
[2019-11-27] MEDS ORDERED: ONDANSETRON 4 MG/2 ML (SDV) Z0FRAN IVP ONE (17:15)
[2019-11-27] MEDS ORDERED: CATHETER FLUSH 10 ML SYR IV PRN (17:15)
[2019-11-27 17:27] LABS: HEMATOCRIT 36 % (35-52); HEMOGLOBIN 12.3 G/DL (11.5-16.0); MEAN CORPUSCULAR HEMOGLOBIN 30 PG (25-34); MEAN CORPUSCULAR HGB CONC 34 G/DL (32-36); MEAN CORPUSCULAR VOLUME 87 FL (80-99); MEAN PLATELET VOLUME 9.2 FL (7.4-10.4); PLATELET COUNT 389 10^3/uL (130-400); RED CELL DISTRIBUTION WIDTH 16.1 % (10.0-14.5); WHITE BLOOD COUNT 15.4 10^3/uL (4.3-11.0)
[2019-11-27 17:28] LABS: BASOPHILS % (AUTO) 0 % (0-10); EOSINOPHILS # (AUTO) 0.1 10^3/uL (0.0-0.3); EOSINOPHILS % (AUTO) 0 % (0-10); LYMPHOCYTES # (AUTO) 3.1 X 10^3 (1.0-4.0); LYMPHOCYTES % (AUTO) 20 % (12-44); MONOCYTES # (AUTO) 0.9 X 10^3 (0.0-1.0); MONOCYTES % (AUTO) 6 % (0-12); NEUTROPHILS # (AUTO) 11.2 X 10^3 (1.8-7.8); NEUTROPHILS % (AUTO) 73 % (42-75)
[2019-11-27 17:42] LABS: CARBON DIOXIDE 22 MMOL/L (21-32); CHLORIDE 106 MMOL/L (98-107); POTASSIUM 3.9 MMOL/L (3.6-5.0); SODIUM 138 MMOL/L (135-145)
[2019-11-27 17:43] LABS: ALANINE AMINOTRANSFERASE 13 U/L (0-55); ALBUMIN 4.7 GM/DL (3.2-4.5); ALKALINE PHOSPHATASE 68 U/L (40-136); BILIRUBIN,TOTAL 0.2 MG/DL (0.1-1.0); CALCIUM 9.6 MG/DL (8.5-10.1); GLUCOSE 103 MG/DL (70-105); LIPASE 22 U/L (8-78); TOTAL PROTEIN 7.1 GM/DL (6.4-8.2)
[2019-11-27 17:44] LABS: BUN/CREATININE RATIO 14; CREATININE SERUM 0.65 MG/DL (0.60-1.30); GFR ESTIMATED > 60
[2019-11-27 17:58] LABS: EOSINOPHILS % (MANUAL) 1 %; LYMPHOCYTES % (MANUAL) 20 %; MONOCYTES % (MANUAL) 2 %; NEUTROPHILS % (MANUAL) 74 %; REACTIVE LYMPHOCYTES 3 %
--- NOTE | 2019-11-27 18:08 | Diagnostic Imaging Report ---
PROCEDURE: CT abdomen and pelvis with contrast. TECHNIQUE: Multiple contiguous axial images were obtained through the abdomen and pelvis after administration of intravenous contrast. Auto Exposure Controls were utilized during the CT exam to meet ALARA standards for radiation dose reduction. INDICATION: Nausea, vomiting, pain. COMPARISON: 06/08/2019. FINDINGS: The visualized lung bases are clear. The liver, spleen, adrenal glands and pancreas are unremarkable. The gallbladder is unremarkable. The bilateral kidneys are unremarkable. No aneurysmal dilatation of the abdominal aorta. The urinary bladder is unremarkable. A 1.5 cm peripherally enhancing lesion within the left ovary is present. Otherwise, adnexal structures are unremarkable for age. The appendix is not definitely visualized, though no secondary signs of acute appendicitis are seen. No bowel obstruction or pneumatosis. No significant adenopathy, free air or free fluid within the abdomen or pelvis. No acute osseous abnormality. IMPRESSION: 1. There is a 1.5 cm lesion within the left ovary which is felt to relate to involuting follicle/hemorrhagic cyst. 2. Additional nonacute findings, as above. Dictated by: Dictated on workstation # [id number]
[2019-11-27 18:18] VITALS: BP 116/80
[2019-11-27] MEDS ORDERED: ONDA4TAB11 PO (18:20)
[2019-11-27] MEDS ORDERED: NF-CIPDEC OT (18:21)
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
== END 2019-11-27 18:25 | disposition home or self-care (01) ==
LOC: EDUNIT# 16:38 → ER FS 16:39
DX: R11.2 Nausea with vomiting, unspecified (principal); R19.7 Diarrhea, unspecified; H60.91 Unspecified otitis externa, right ear; J44.9 Chronic obstructive pulmonary disease, unspecified; G35 Multiple sclerosis; G62.9 Polyneuropathy, unspecified; F17.210 Nicotine dependence, cigarettes, uncomplicated; Z88.1 Allergy status to other antibiotic agents; Z91.040 Latex allergy status; Z79.891 Long term (current) use of opiate analgesic
CPT/HCPCS: 36415; 74177; 80053; 81000; 83690; 84703; 85007; 85027

== ENCOUNTER 2019-12-02 20:07 | Emergency (ER) | payer MEDICAID ==
[~2019-12-02] VITALS: Ht 167.7 cm; Wt 68.2 kg
[~2019-12-02 20:07] MED LIST changes: +NF-CIPDEC OT
--- NOTE | 2019-12-02 20:44 | ED Psychosocial ---
General Chief Complaint: Psych/Social Disorder Stated Complaint: PSYCH EVAL Nursing Triage Note: pt here for medication adjustment, has no suicidal thoughts, has had some in the past but was hospitalized last month in [place] at [facility]. pt was placed on prozac and vistaril for anxiety and depression and she doesnt think they are helping her. pt noted to be moderately anxious during assessment History of Present Illness Date Seen by Provider: Dec 02, 2019 Time Seen by Provider: 20:20 Initial Comments Patient is here complaining that the Prozac that she's been put on has made her agitation worse concerned about being anxious starting to have some bad dreams denies any suicidal or homicidal thoughts denies any hallucination but has had bad night tears in the past and they seem to be coming back no fever no chills no body ache has chronic diarrhea has slight right upper quadrant abdominal pain and was told she had a liver problem due to unknown causes as had darker urine but has had no sign of blood in her urine that she is aware of. Timing/Duration: week Severity: moderate Associated Symptoms: anxiety, insomnia Allergies and Home Medications Allergies Coded Allergies: clindamycin (Unverified Adverse Reaction, Unknown, 10/21/18) latex (Unverified Adverse Reaction, Unknown, 10/21/18) Home Medications Albuterol Sulfate 1 Puff Puff, 2 PUFF IH Q4H PRN for SHORTNESS OF BREATH 1 PUFF = 90 MCG Prescribed by: GUIDO DAVILA on 01/04/19 0146 Cephalexin 500 Mg Capsule, 500 MG PO QID Prescribed by: SOCO GAYTAN on 05/27/19 1239 Ciprofloxacin HCl 500 Mg Tablet, 500 MG PO BID Prescribed by: JOSE YOO on 05/16/19 205 Ciprofloxacin HCl/Dexameth 7.5 Ml Soln, 4 DROPS OT BID Prescribed by: MELANIE RODRIGUEZ on 11/27/19 1821 Docusate Sodium 100 Mg Capsule, 100 MG PO DAILY Prescribed by: SUKHDEEP MCCULLOUGH on 11/28/18 0544 Metronidazole 500 Mg Tablet, 500 MG PO BID Prescribed by: MELANIE RODRIGUEZ on 05/29/19 1201 Mupirocin Calcium 15 Gm Cream..g., 15 GM TP TID Prescribed by: INDIA ROGEL on 10/24/19 1155 Nystatin 15 Gm Cream..g., 1 GM TP BID Prescribed by: MELANIE RODRIGUEZ on 05/29/19 1113 Omeprazole 40 Mg Capsule.dr, 40 MG PO DAILY Prescribed by: MELANIE RODRIGUEZ on 01/25/19 175 Omeprazole 40 Mg Capsule.dr, 40 MG PO DAILY Prescribed by: MELANIE RODRIGUEZ on 03/09/19 1608 Ondansetron 4 Mg Tab.rapdis, 4 MG PO Q6H Prescribed by: SUKHDEEP MCCULLOUGH on 10/21/18 2205 Ondansetron 4 Mg Tab.rapdis, 4 MG PO Q6H PRN for NAUSEA/VOMITING Prescribed by: MELANIE RODRIGUEZ on 01/25/19 1757 Ondansetron 4 Mg Tab.rapdis, 4 MG PO Q6H PRN for NAUSEA/VOMITING Prescribed by: MELANIE RODRIGUEZ on 03/09/19 1608 Ondansetron 4 Mg Tab.rapdis, 4 MG PO Q6H PRN for NAUSEA/VOMITING Prescribed by: INDIA ROGEL on 10/24/19 1155 Ondansetron 4 Mg Tab.rapdis, 4 MG PO Q6H PRN for NAUSEA/VOMITING Prescribed by: MELANIE RODRIGUEZ on 11/27/19 1820 Sulfamethoxazole/Trimethoprim 1 Each Tablet, 1 EACH PO BID Prescribed by: JOSE YOO on 01/06/19 2144 Sulfamethoxazole/Trimethoprim 1 Each Tablet, 1 EACH PO BID Prescribed by: RIYA RIOS on 04/30/19 215 Tramadol HCl 50 Mg Tablet, 50 MG PO Q6H PRN for PAIN Prescribed by: SUKHDEEP MCCULLOUGH on 11/28/18 0544 Patient Home Medication List Home Medication List Reviewed: Yes Review of Systems Constitutional: No chills, No dizziness, No fever EENTM: dental problems; No mouth pain, No throat pain Respiratory: no symptoms reported Cardiovascular: no symptoms reported Gastrointestinal: abdominal pain; No nausea, No vomiting Genitourinary: No dysuria, No frequency, No hematuria Musculoskeletal: No back pain, No muscle pain, No muscle stiffness Skin: No change in color, No lesions Past Jozpcvf-Hwuzps-Unvfnc Hx Past Med/Social Hx: Reviewed Nursing Past Med/Soc Hx Patient Social History Alcohol Use: Occasionally Uses Number of Drinks Today: AA Alcohol Beverage of Choice: Beer Recreational Drug Use: Yes Drug of Choice: METH Smoking Status: Current Everyday Smoker Type Used: Cigarettes 2nd Hand Smoke Exposure: No Recent Foreign Travel: No Contact w/Someone Who Travel: No Recent Infectious Disease Expo: No Recent Hopitalizations: No Physical Abuse: No Sexual Abuse: No Mistreated: No Fear: No Immunizations Up To Date Tetanus Booster (TDap): Less than 5yrs Seasonal Allergies Seasonal Allergies: No Past Medical History Surgeries: Yes (C/S X 3) Appendectomy, Section, Tubal Ligation Respiratory: Yes Asthma, COPD Cardiac: No Neurological: Yes (EPILEPSY) Multiple Sclerosis, Neuropathy, Seizure Disorder Genitourinary: No Gastrointestinal: Yes Liver Disease/Jaundice Musculoskeletal: No Endocrine: No HEENT: No Cancer: No Psychosocial: Yes Anxiety, Schizophrenia Integumentary: No Blood Disorders: No Physical Exam Vital Signs - First Documented 12/02/19 20:17 Temp 36.7 Pulse 104 Resp 18 B/P (MAP) 102/65 (77) Pulse Ox 100 O2 Delivery Room Air Capillary Refill : Less Than 3 Seconds Height, Weight, BMI Height: 5'4.00" Weight: 134lbs. 0oz. 60.945926ai; 24.00 BMI Method:Stated General Appearance: WD/WN, no apparent distress HEENT: PERRL/EOMI, normal ENT inspection, TMs normal, pharynx normal, other (poor dentition throughout) Neck: non-tender, full range of motion Respiratory: chest non-tender, lungs clear, normal breath sounds Cardiovascular: regular rate, rhythm, no edema Gastrointestinal: normal bowel sounds, soft, tenderness (mild tenderness right sided liver edge palpable) Extremities: normal range of motion, normal inspection Neurologic/Psychiatric: no motor/sensory deficits, alert, oriented x 3 Behavior/Eye Contact: cooperative, increased rate of speech Thoughts/Hallucinations: No flight of ideas, No obsessive Skin: normal color, warm/dry, other (numerous self-inflicted skin lesions) Progress/Results/Core Measures Results/Orders Lab Results Laboratory Tests Test 12/02/19 20:45 12/02/19 20:50 Range/Units Urine Color YELLOW Urine Clarity SLT CLOUDY Urine pH 5.5 5-9 Urine Specific Duson >=1.030 1.016-1.022 Urine Protein TRACE H NEGATIVE Urine Glucose (UA) NEGATIVE NEGATIVE Urine Ketones NEGATIVE NEGATIVE Urine Nitrite NEGATIVE NEGATIVE Urine Bilirubin 1+ H NEGATIVE Urine Urobilinogen 0.2 < = 1.0 MG/DL Urine Leukocyte Esterase NEGATIVE NEGATIVE Urine RBC (Auto) 3+ H NEGATIVE Urine RBC NONE /HPF Urine WBC RARE /HPF Urine Squamous Epithelial Cells RARE /HPF Urine Crystals PRESENT H /LPF Urine Amorphous Sediment FEW NATALIE URATES H /LPF Urine Bacteria FEW H /HPF Urine Casts NONE /LPF Urine Mucus MODERATE H /LPF Urine Culture Indicated NO Urine Opiates Screen NEGATIVE NEGATIVE Urine Oxycodone Screen NEGATIVE NEGATIVE Urine Methadone Screen NEGATIVE NEGATIVE Urine Propoxyphene Screen NEGATIVE NEGATIVE Urine Barbiturates Screen NEGATIVE NEGATIVE Ur Tricyclic Antidepressants Screen NEGATIVE NEGATIVE Urine Phencyclidine Screen POSITIVE H NEGATIVE Urine Amphetamines Screen NEGATIVE NEGATIVE Urine Methamphetamines Screen NEGATIVE NEGATIVE Urine Benzodiazepines Screen NEGATIVE NEGATIVE Urine Cocaine Screen NEGATIVE NEGATIVE Urine Cannabinoids Screen NEGATIVE NEGATIVE White Blood Count 10.8 4.3-11.0 10^3/uL Red Blood Count 4.04 L 4.35-5.85 10^6/uL Hemoglobin 12.1 11.5-16.0 G/DL Hematocrit 36 35-52 % Mean Corpuscular Volume 90 80-99 FL Mean Corpuscular Hemoglobin 30 25-34 PG Mean Corpuscular Hemoglobin Concent 33 32-36 G/DL Red Cell Distribution Width 16.0 H 10.0-14.5 % Platelet Count 391 130-400 10^3/uL Mean Platelet Volume 9.4 7.4-10.4 FL Neutrophils (%) (Auto) 61 42-75 % Lymphocytes (%) (Auto) 31 12-44 % Monocytes (%) (Auto) 7 0-12 % Eosinophils (%) (Auto) 1 0-10 % Basophils (%) (Auto) 0 0-10 % Neutrophils # (Auto) 6.6 1.8-7.8 X 10^3 Lymphocytes # (Auto) 3.3 1.0-4.0 X 10^3 Monocytes # (Auto) 0.8 0.0-1.0 X 10^3 Eosinophils # (Auto) 0.1 0.0-0.3 10^3/uL Basophils # (Auto) 0.0 0.0-0.1 10^3/uL Sodium Level 141 135-145 MMOL/L Potassium Level 4.5 3.6-5.0 MMOL/L Chloride Level 106 98-107 MMOL/L Carbon Dioxide Level 24 21-32 MMOL/L Anion Gap 11 5-14 MMOL/L Blood Urea Nitrogen 14 7-18 MG/DL Creatinine 0.89 0.60-1.30 MG/DL Estimat Glomerular Filtration Rate > 60 BUN/Creatinine Ratio 16 Glucose Level 85 70-105 MG/DL Calcium Level 9.7 8.5-10.1 MG/DL Corrected Calcium 8.5-10.1 MG/DL Total Bilirubin 0.6 0.1-1.0 MG/DL Aspartate Amino Transf (AST/SGOT) 21 5-34 U/L Alanine Aminotransferase (ALT/SGPT) 12 0-55 U/L Alkaline Phosphatase 76 40-136 U/L Total Protein 7.4 6.4-8.2 GM/DL Albumin 4.8 H 3.2-4.5 GM/DL My Orders Orders - SOCO GAYTAN JR, MD Cbc With Automated Diff (12/02/19 20:39) Comprehensive Metabolic Panel (12/02/19 20:39) Drug Screen Stat (Urine) (12/02/19 20:39) Ua Culture If Indicated (12/02/19 20:39) Acetaminophen Tablet/Caplet (Tylenol T (12/02/19 21:45) Vital Signs/I&O 12/02/19 20:17 Temp 36.7 Pulse 104 Resp 18 B/P (MAP) 102/65 (77) Pulse Ox 100 O2 Delivery Room Air Blood Pressure Mean: 77 Departure Communication (Admissions) This point discussed stopping the Prozac following up with mental health for further treatment PCP present in the urine specimen has had a history of drug abuse in the past. Impression Primary Impression: Anxiety Disposition: 01 HOME, SELF-CARE Condition: Stable Departure-Patient Inst. Referrals: CAMILLE SHETH MD (PCP/Family) Primary Care Physician Patient Instructions: Anxiety, Adult (DC) SOCO GAYTAN JR, MD Dec 02, 2019 20:43
[2019-12-02 21:02] LABS: CLARITY,URINE SLT CLOUDY; COLOR,URINE YELLOW; PH,URINE 5.5 (5-9)
[2019-12-02 21:03] LABS: BILIRUBIN,URINE 1+ (NEGATIVE); GLUCOSE, URINE (UA) NEGATIVE (NEGATIVE); KETONES,URINE NEGATIVE (NEGATIVE); LEUKOCYTE ESTERASE ,URINE NEGATIVE (NEGATIVE); NITRITE,URINE NEGATIVE (NEGATIVE); PROTEIN,URINE TRACE (NEGATIVE); WBC,URINE RARE /HPF
[2019-12-02 21:04] LABS: AMORPHOUS SEDIMENT,UR FEW AMOR URATES /LPF; BACTERIA,URINE FEW /HPF; SQUAMOUS EPITHELIAL CELL,UR RARE /HPF
[2019-12-02 21:05] LABS: BASOPHILS % (AUTO) 0 % (0-10); EOSINOPHILS # (AUTO) 0.1 10^3/uL (0.0-0.3); EOSINOPHILS % (AUTO) 1 % (0-10); HEMATOCRIT 36 % (35-52); HEMOGLOBIN 12.1 G/DL (11.5-16.0); LYMPHOCYTES # (AUTO) 3.3 X 10^3 (1.0-4.0); LYMPHOCYTES % (AUTO) 31 % (12-44); MEAN CORPUSCULAR HEMOGLOBIN 30 PG (25-34); MEAN CORPUSCULAR HGB CONC 33 G/DL (32-36); MEAN CORPUSCULAR VOLUME 90 FL (80-99); MEAN PLATELET VOLUME 9.4 FL (7.4-10.4); MONOCYTES # (AUTO) 0.8 X 10^3 (0.0-1.0); MONOCYTES % (AUTO) 7 % (0-12); NEUTROPHILS # (AUTO) 6.6 X 10^3 (1.8-7.8); NEUTROPHILS % (AUTO) 61 % (42-75); PLATELET COUNT 391 10^3/uL (130-400); WHITE BLOOD COUNT 10.8 10^3/uL (4.3-11.0)
[2019-12-02 21:24] LABS: ALANINE AMINOTRANSFERASE 12 U/L (0-55); ALBUMIN 4.8 GM/DL (3.2-4.5); ALKALINE PHOSPHATASE 76 U/L (40-136); BILIRUBIN,TOTAL 0.6 MG/DL (0.1-1.0); BUN/CREATININE RATIO 16; CALCIUM 9.7 MG/DL (8.5-10.1); CARBON DIOXIDE 24 MMOL/L (21-32); CHLORIDE 106 MMOL/L (98-107); CREATININE SERUM 0.89 MG/DL (0.60-1.30); GFR ESTIMATED > 60; GLUCOSE 85 MG/DL (70-105); POTASSIUM 4.5 MMOL/L (3.6-5.0); SODIUM 141 MMOL/L (135-145); TOTAL PROTEIN 7.4 GM/DL (6.4-8.2)
[2019-12-02 21:26] LABS: AMPHETAMINE SCREEN, URINE NEGATIVE (NEGATIVE); BARBITURATE SCREEN URINE NEGATIVE (NEGATIVE); BENZODIAZEPINES SCREEN URINE NEGATIVE (NEGATIVE); CANNABINOID SCREEN, URINE NEGATIVE (NEGATIVE); COCAINE SCREEN URINE NEGATIVE (NEGATIVE); METHADONE STAT NEGATIVE (NEGATIVE); METHAMPHETAMINE SCREEN URINE S NEGATIVE (NEGATIVE); OPIATE SCREEN URINE NEGATIVE (NEGATIVE); OXYCODONE STAT NEGATIVE (NEGATIVE); PROPOXYPHENE STAT NEGATIVE (NEGATIVE); TRICYCLIC ANTIDEPRESSANTS SCRE NEGATIVE (NEGATIVE)
[2019-12-02 21:44] VITALS: BP 98/56
[2019-12-02] MEDS ORDERED: ACETAMINOPHEN 325 MG TABLET PO ONE (21:45)
--- OUTSIDE RECORDS SUMMARY | 2019-12-02 23:00 | XMS REPORT | Continuity of Care Document ---
Author Organization Unknown Address Unknown Phone Unavailable Allergies Active Description Code Type Severity Reaction Onset Reported/Identified Relationship to Patient Clinical Status Yes clindamycin [id number] Drug Aller gy Unknown N/A 10/21/2018 Yes latex [id number] Drug Allergy Unknown N/A 10/21/2018 Medications There [...] F17.290 NICOTINE DEPENDENCE, OTHER TOBACCO PRODU 12/04/2018 NORMAN DO, SUKHDEEP Ot F20.9 SCHIZOPHRENIA, UNSPECIFIED 12/04/2018 MCCULLOUGH DO, SUKHDEEP Ot G40.909 EPILEPSY, UNSP, NOT INTRACTABLE, WITHOUT 12/04/2018 MCCULLOUGH DO, SUKHDEEP Ot J44.9 CHRONIC OBSTRUCTIVE PULMONARY DISEASE, U 12/04/2018 MCCULLOUGH DO, SUKHDEEP Ot R10.33 PERIUMBILICAL PAIN 12/04/2018 NORMAN DO, SUKHDEEP Ot T21.25XD BURN OF SECOND DEGREE OF BUTTOCK, SUBSEQ 12/04/2018 NORMAN DO, SUKHDEEP Ot T21.27XD BURN OF SECOND DEGREE OF FEMALE GENITAL 12/04/2018 NORMAN DO, SUKHDEEP Ot X19.XXXD CONTACT WITH OTHER HEAT AND HOT SUBSTANC 12/04/2018 MCCULLOUGH DO, SUKHDEEP Ot Z88.1 ALLERGY STATUS TO OTHER ANTIBIOTIC AGENT 12/04/2018 MCCULLOUGH DO, SUKHDEEP Ot Z90.49 ACQUIRED ABSENCE OF OTHER SPECIFIED PART 12/04/2018 MCCULLOUGH DO, SUKHDEEP Ot Z91.040 LATEX ALLERGY STATUS 12/04/2018 NORMAN DO, SUKHDEEP Ot Z91.14 PATIENT'S OTHER NONCOMPLIANCE [...] SUKHDEEP Ot Z91.040 LATEX ALLERGY STATUS 12/13/2018 [facility] PATIENT'S OTHER NONCOMPLIANCE WITH MEDIC [...] G40.909 EPILEPSY, UNSP, NOT INTRACTABLE, WITHOUT 04/30/2019 RIAY RIOS MD Ot J44. 9 CHRONIC OBSTRUCTIVE [...] G40.909 EPILEPSY, UNSP, NOT INTRACTABLE, WITHOUT 11/07/2019 NORMAN DO, SUKHDEEP Ot G47.00 INSOMNIA, UNSPECIFIED 11/07/2019 NORMAN DO, SUKHDEEP Ot J44.9 CHRONIC OBSTRUCTIVE PULMONARY DISEASE, U 11/07/2019 NORMAN DO, SUKHDEEP Ot R45.850 HOMICIDAL IDEATIONS 11/07/2019 NORMAN DO, SUKHDEEP Ot Z77.22 CNTCT W AND EXPSR TO ENVIRON TOBACCO SMO 11/07/2019 NORMAN DO, SUKHDEEP Ot Z88.1 ALLERGY STATUS TO OTHER ANTIBIOTIC AGENT 11/07/2019 NORMAN DO, SUKHDEEP Ot Z90.49 ACQUIRED ABSENCE OF OTHER SPECIFIED PART 11/07/2019 NORMAN DO, SUKHDEEP Ot Z91.040 LATEX ALLERGY STATUS 11/07/2019 NORMAN DO, SUKHDEEP Ot Z98.51 TUBAL LIGATION STATUS [...] 7-25 CREATININE 0.68 mg/dL 0.50-1.10 eGFR NON-AFR. GERMAN 110 mL/min/1.73m2 > OR = 60 eGFR [...] NRG Blood erythrocyte morphology finding identification [facility] Comprehensive metabolic panel - 05/27/19 11:55 Serum [...] Status Pt. Type Provider Facility Loc./Unit Complaint [id number] 05/16/2019 14:00:00 05/16/2019 23:59: 59 [facility] Outpatient CAMILLE SHETH [facility] [id number] 05/16/2019 13:00:00 Document Registration [id number] 03/17/2019 10:30:00 Document Registration [id number] 08/09/2018 11:00:00 Document Registration [id number] 12/02/2019 20:09:00 21:43:00 DIS Emergency LUCILA NELSON, SOCO Wilder [facility] ER FS PSYCH EVAL [id number] 11/27/2019 16:39:00 18:25:00 DIS Emergency MELANIE RODRIGUEZ MD [facility] ER FS VOMITING,NAUSEA [id number] 11/06/2019 20:39:00 21:29:00 DIS Outpatient DEANNE NELSON, YASMIN W [facility] ER FS BACK PAIN,NAUSEA,HEADA CHES [id number] 10/24/2019 11:07:00 12:05:00 DIS Emergency ROVENSTZAHRA LUNA INDIA Wilder [facility] ER FS NAUSEA [id number] 2019 10:44:00 12:44:00 DIS Emergency MICHAEL NELSON, MELANIE Galan [facility] ER FS KIDNEY PAIN [id number] 05/27/2019 11:07:00 12:45:00 DIS Emergency LUCILA NELSON, SOCO Wilder [facility] ER FS PSYCH EVAL [id number] 05/16/2019 19:54:00 20:58:00 DIS Emergency JOSE YOO MD [facility] ER FS POSSIBLE STD [id number] 04/30/2019 20:59:00 22:04:00 DIS Emergency GABRIEL NELSON, RIYA Chambers [facility] ER FS NAUSEA/VOMITTING [id number] 03/17/2019 09:27:00 23:59:59 [facility] Outpatient DOMENIC NELSON, CAMILLE Rivera [facility] RAD FS R10.2 [id number] 03/09/2019 14:56:00 16:12:00 DIS Emergency MELANIE RODRIGUEZ MD [facility] ER FS DIZZINESS [id number] 01/25/2019 17:28:00 18:08:00 DIS Emergency MELANIE RODRIGUEZ MD [facility] ER FS VOMITING [id number] 01/06/2019 19:54:00 21:48:00 DIS Emergency JOSE YOO MD [facility] ER FS ANKLE LAC [id number] 01/03/2019 23:45:00 01:52:00 DIS Outpatient FER NELSON, GUIDO Martin [facility] ER FS DETOX [id number] 12/06/2018 22:12:00 00:17:00 DIS Outpatient SUKHDEEP MCCULLOUGH DO [facility] FS MENTAL HEALTH SCREENING [id number] 12/06/2018 20:01:00 20:32:00 DIS Emergency MCCULLOUGH SUKHDEEP LUNA [facility] ER FS MENTAL HEALTH SCREENING [id number] 11/28/2018 04:32:00 05:47:00 DIS Emergency MCCULLOUGH SUKHDEEP LUNA [facility] ER FS VAGINAL ISSUES [id number] 11/22/2018 01:23:00 03:20:00 DIS Emergency JOSE YOO MD [facility] ER FS ESPINOZA TO BOTTOM [id number] 10/21/2018 20:32:00 22:08:00 DIS Emergency SUKHDEEP MCCULLOUGH DO [facility] ER FS BACK PAIN,VOMITING [id number] 08/06/2018 15:37:00 17:50:00 DIS Emergency MICHAEL NELSON, MELANIE Galan [facility] ER FS POSSIBLE SPRAIN RT MACY Craft
== END 2019-12-02 21:43 | disposition home or self-care (01) ==
LOC: EDUNIT# 20:07 → ER FS 20:09
DX: F41.9 Anxiety disorder, unspecified (principal); J44.9 Chronic obstructive pulmonary disease, unspecified; K52.9 Noninfective gastroenteritis and colitis, unspecified; G35 Multiple sclerosis; F17.210 Nicotine dependence, cigarettes, uncomplicated; Z88.1 Allergy status to other antibiotic agents; Z91.040 Latex allergy status
CPT/HCPCS: 36415; 80053; 80306; 81000; 85025

== ENCOUNTER 2019-12-09 14:36 | Emergency (ER) | payer MEDICAID ==
[~2019-12-09] VITALS: Ht 160 cm; Wt 68.0 kg
[2019-12-09 15:01] LABS: HEMATOCRIT 30 % (35-52); MEAN CORPUSCULAR HEMOGLOBIN 30 PG (25-34); WHITE BLOOD COUNT 9.7 10^3/uL (4.3-11.0)
--- NOTE | 2019-12-09 15:01 | ED GI ---
General Chief Complaint: Abdominal/GI Problems Stated Complaint: ABD PAIN; NAUSEA Nursing Triage Note: Patient states she was diagnosed with endometriosis recently, has not completed her follow up with Dr. Villalba as recommended. States she has had ongoing abdominal pain for approximately one month. States pain is just not getting any better. Sepsis Screen: No Definite Risk Source of Information: Patient Exam Limitations: No Limitations History of Present Illness Date Seen by Provider: Dec 09, 2019 Time Seen by Provider: 14:50 Initial Comments 39 y/o female w intermittent lower abdominal pain for 2 weeks. states recently seen and treated for both a UTI and Trichimonas. Allergies and Home Medications Allergies Coded Allergies: clindamycin (Unverified Adverse Reaction, Unknown, 10/21/18) latex (Unverified Adverse Reaction, Unknown, 10/21/18) Home Medications Albuterol Sulfate 1 Puff Puff, 2 PUFF IH Q4H PRN for SHORTNESS OF BREATH 1 PUFF = 90 MCG Prescribed by: GUIDO DAVILA on 01/04/19 0146 Cephalexin 500 Mg Capsule, 500 MG PO QID Prescribed by: SOCO GAYTAN on 05/27/19 1239 Ciprofloxacin HCl 500 Mg Tablet, 500 MG PO BID Prescribed by: JOSE YOO on 05/16/19 205 Ciprofloxacin HCl/Dexameth 7.5 Ml Soln, 4 DROPS OT BID Prescribed by: MELANIE RODRIGUEZ on 11/27/19 1821 Docusate Sodium 100 Mg Capsule, 100 MG PO DAILY Prescribed by: SUKHDEEP MCCULLOUGH on 11/28/18 0544 Metronidazole 500 Mg Tablet, 500 MG PO BID Prescribed by: MELANIE RODRIGUEZ on 05/29/19 1201 Metronidazole 500 Mg Tablet, 500 MG PO BID Prescribed by: INDIA ROGEL on 12/09/19 1528 Mupirocin Calcium 15 Gm Cream..g., 15 GM TP TID Prescribed by: INDIA ROGEL on 10/24/19 1155 Nystatin 15 Gm Cream..g., 1 GM TP BID Prescribed by: MELANIE RODRIGUEZ on 05/29/19 1113 Omeprazole 40 Mg Capsule., 40 MG PO DAILY Prescribed by: MELANIE RODRIGUEZ on 01/25/19 1757 Omeprazole 40 Mg Capsule., 40 MG PO DAILY Prescribed by: MELANIE RODRIGUEZ on 03/09/19 1608 Ondansetron 4 Mg Tab.rapdis, 4 MG PO Q6H Prescribed by: SUKHDEEP MCCULLOUGH on 10/21/18 2205 Ondansetron 4 Mg Tab.rapdis, 4 MG PO Q6H PRN for NAUSEA/VOMITING Prescribed by: MELANIE RODRIGUEZ on 01/25/19 1757 Ondansetron 4 Mg Tab.rapdis, 4 MG PO Q6H PRN for NAUSEA/VOMITING Prescribed by: MELANIE RODRIGUEZ on 03/09/19 1608 Ondansetron 4 Mg Tab.rapdis, 4 MG PO Q6H PRN for NAUSEA/VOMITING Prescribed by: INDIA ROGEL on 10/24/19 1155 Ondansetron 4 Mg Tab.rapdis, 4 MG PO Q6H PRN for NAUSEA/VOMITING Prescribed by: MELANIE RODRIGUEZ on 11/27/19 1820 Sulfamethoxazole/Trimethoprim 1 Each Tablet, 1 EACH PO BID Prescribed by: JOSE YOO on 01/06/19 214 Sulfamethoxazole/Trimethoprim 1 Each Tablet, 1 EACH PO BID Prescribed by: RIYA RIOS on 04/30/19 215 Tramadol HCl 50 Mg Tablet, 50 MG PO Q6H PRN for PAIN Prescribed by: SUKHDEEP MCCULLOUGH on 11/28/18 0544 Patient Home Medication List Home Medication List Reviewed: Yes Review of Systems Review of Systems Constitutional: No dizziness, No fever, No malaise, No weakness Respiratory: Denies Cough, Denies Shortness of Air Cardiovascular: Denies Chest Pain, Denies Edema, Denies Palpitations Gastrointestinal: Abdominal Pain; Denies Constipated, Denies Diarrhea, Denies Nausea, Denies Poor Appetite, Denies Vomiting Genitourinary: Denies Burning, Denies Drainage, Denies Frequency, Denies Flank Pain, Denies Hematuria, Denies Pain Musculoskeletal: No back pain, No joint pain Skin: No change in color, No lesions, No rash Past Dbxravr-Dmumyx-Dddwee Hx Past Med/Social Hx: Reviewed Nursing Past Med/Soc Hx Patient Social History Alcohol Use: Occasionally Uses Number of Drinks Today: AA Alcohol Beverage of Choice: Beer Recreational Drug Use: Yes Drug of Choice: METH Smoking Status: Current Everyday Smoker Type Used: Cigarettes 2nd Hand Smoke Exposure: No Recent Foreign Travel: No Contact w/Someone Who Travel: No Recent Infectious Disease Expo: No Recent Hopitalizations: No Physical Abuse: No Sexual Abuse: No Mistreated: No Fear: No Immunizations Up To Date Tetanus Booster (TDap): Less than 5yrs Seasonal Allergies Seasonal Allergies: No Past Medical History Surgeries: Yes (C/S X 3) Appendectomy, Section, Tubal Ligation Respiratory: Yes Asthma, COPD Cardiac: No Neurological: Yes (EPILEPSY) Multiple Sclerosis, Neuropathy, Seizure Disorder Genitourinary: No Gastrointestinal: Yes Liver Disease/Jaundice Musculoskeletal: No Endocrine: No HEENT: No Cancer: No Psychosocial: Yes Anxiety, Schizophrenia Integumentary: No Blood Disorders: No Physical Exam Vital Signs Vital Signs - First Documented 12/09/19 14:39 Temp 37.1 Pulse 90 Resp 16 B/P (MAP) 99/55 (70) Pulse Ox 96 O2 Delivery Room Air Capillary Refill : Less Than 3 Seconds Height/Weight/BMI Height: 5'4.00" Weight: 134lbs. 0oz. 60.409858hm; 26.00 BMI Method:Stated General Appearance: WD/WN, no apparent distress Respiratory: chest non-tender, lungs clear Cardiovascular: regular rate, rhythm, no edema Gastrointestinal: non tender, soft; No guarding, No rebound; tenderness (diffuse lower abdominal discomfort) Extremities: non-tender, no pedal edema, no calf tenderness, normal capillary refill Neurologic/Psychiatric: alert, normal mood/affect Progress/Results/Core Measures Results/Orders Lab Results Laboratory Tests Test 12/09/19 14:40 12/09/19 15:00 Range/Units White Blood Count 9.7 4.3-11.0 10^3/uL Red Blood Count 3.35 L 4.35-5.85 10^6/uL Hemoglobin 10.0 L 11.5-16.0 G/DL Hematocrit 30 L 35-52 % Mean Corpuscular Volume 88 80-99 FL Mean Corpuscular Hemoglobin 30 25-34 PG Mean Corpuscular Hemoglobin Concent 34 32-36 G/DL Red Cell Distribution Width 16.2 H 10.0-14.5 % Platelet Count 337 130-400 10^3/uL Mean Platelet Volume 9.1 7.4-10.4 FL Neutrophils (%) (Auto) 70 42-75 % Lymphocytes (%) (Auto) 22 12-44 % Monocytes (%) (Auto) 8 0-12 % Eosinophils (%) (Auto) 0 0-10 % Basophils (%) (Auto) 0 0-10 % Neutrophils # (Auto) 6.7 1.8-7.8 X 10^3 Lymphocytes # (Auto) 2.2 1.0-4.0 X 10^3 Monocytes # (Auto) 0.8 0.0-1.0 X 10^3 Eosinophils # (Auto) 0.0 0.0-0.3 10^3/uL Basophils # (Auto) 0.0 0.0-0.1 10^3/uL Sodium Level 140 135-145 MMOL/L Potassium Level 4.1 3.6-5.0 MMOL/L Chloride Level 107 98-107 MMOL/L Carbon Dioxide Level 22 21-32 MMOL/L Anion Gap 11 5-14 MMOL/L Blood Urea Nitrogen 8 7-18 MG/DL Creatinine 0.89 0.60-1.30 MG/DL Estimat Glomerular Filtration Rate > 60 BUN/Creatinine Ratio 9 Glucose Level 111 H 70-105 MG/DL Calcium Level 8.6 8.5-10.1 MG/DL Corrected Calcium 8.8 8.5-10.1 MG/DL Total Bilirubin 0.2 0.1-1.0 MG/DL Aspartate Amino Transf (AST/SGOT) 23 5-34 U/L Alanine Aminotransferase (ALT/SGPT) 5 0-55 U/L Alkaline Phosphatase 64 40-136 U/L Total Protein 5.9 L 6.4-8.2 GM/DL Albumin 3.8 3.2-4.5 GM/DL Urine Color YELLOW Urine Clarity CLOUDY Urine pH 6.0 5-9 Urine Specific Ashley >1.030 1.016-1.022 Urine Protein TRACE H NEGATIVE Urine Glucose (UA) NEGATIVE NEGATIVE Urine Ketones NEGATIVE NEGATIVE Urine Nitrite NEGATIVE NEGATIVE Urine Bilirubin NEGATIVE NEGATIVE Urine Urobilinogen 1.0 < = 1.0 MG/DL Urine Leukocyte Esterase 2+ H NEGATIVE Urine RBC (Auto) 2+ H NEGATIVE Urine RBC 5-10 H /HPF Urine WBC 5-10 H /HPF Urine Squamous Epithelial Cells 5-10 /HPF Urine Crystals PRESENT H /LPF Urine Calcium Oxalate Crystals MODERATE H /LPF Urine Bacteria FEW H /HPF Urine Casts NONE /LPF Urine Mucus NEGATIVE /LPF Urine Trichomonas FEW H /HPF Urine Culture Indicated YES Urine Test NEGATIVE NEGATIVE My Orders Orders - ROVENSTINE,INDIA L DO Urinalysis (12/09/19 14:54) Cbc With Automated Diff (12/09/19 14:54) Comprehensive Metabolic Panel (12/09/19 14:54) Hcg,Qualitative Urine (12/09/19 14:54) Urine Culture (12/09/19 15:00) Vital Signs/I&O 12/09/19 12/09/19 14:39 15:53 Temp 37.1 Pulse 90 78 Resp 16 18 B/P (MAP) 99/55 (70) 99/49 Pulse Ox 96 94 O2 Delivery Room Air Room Air Blood Pressure Mean: 70 Departure Impression Primary Impression: Abdominal pain Qualified Codes: R10.30 - Lower abdominal pain, unspecified Additional Impression: Trichimoniasis Disposition: HOME, SELF-CARE Condition: Stable Departure-Patient Inst. Decision time for Depature: 15:28 Referrals: CAMILLE SHETH MD (PCP/Family) Primary Care Physician Patient Instructions: Trichomoniasis (DC) Scripts Metronidazole (Flagyl) 500 Mg Tablet 500 MG PO BID, #14 TAB Prov: INDIA ROGEL DO 12/09/19 INDIA ROGEL DO Dec 09, 2019 15:01
[2019-12-09 15:02] LABS: BASOPHILS % (AUTO) 0 % (0-10); EOSINOPHILS % (AUTO) 0 % (0-10); LYMPHOCYTES # (AUTO) 2.2 X 10^3 (1.0-4.0); LYMPHOCYTES % (AUTO) 22 % (12-44); MEAN CORPUSCULAR HGB CONC 34 G/DL (32-36); MEAN CORPUSCULAR VOLUME 88 FL (80-99); MEAN PLATELET VOLUME 9.1 FL (7.4-10.4); MONOCYTES # (AUTO) 0.8 X 10^3 (0.0-1.0); MONOCYTES % (AUTO) 8 % (0-12); NEUTROPHILS % (AUTO) 70 % (42-75); PLATELET COUNT 337 10^3/uL (130-400); RED CELL DISTRIBUTION WIDTH 16.2 % (10.0-14.5)
[2019-12-09 15:03] LABS: NEUTROPHILS # (AUTO) 6.7 X 10^3 (1.8-7.8)
[2019-12-09 15:13] LABS: CLARITY,URINE CLOUDY; COLOR,URINE YELLOW
[2019-12-09 15:14] LABS: BACTERIA,URINE FEW /HPF; BILIRUBIN,URINE NEGATIVE (NEGATIVE); CALCIUM OXALATE CRYSTALS,UR MODERATE /LPF; GLUCOSE, URINE (UA) NEGATIVE (NEGATIVE); KETONES,URINE NEGATIVE (NEGATIVE); LEUKOCYTE ESTERASE ,URINE 2+ (NEGATIVE); NITRITE,URINE NEGATIVE (NEGATIVE); PROTEIN,URINE TRACE (NEGATIVE); TRICHOMONAS,URINE FEW /HPF
[2019-12-09 15:21] LABS: BUN/CREATININE RATIO 9; CARBON DIOXIDE 22 MMOL/L (21-32); CHLORIDE 107 MMOL/L (98-107); CREATININE SERUM 0.89 MG/DL (0.60-1.30); GFR ESTIMATED > 60; POTASSIUM 4.1 MMOL/L (3.6-5.0); SODIUM 140 MMOL/L (135-145)
[2019-12-09 15:22] LABS: ALANINE AMINOTRANSFERASE 5 U/L (0-55); ALBUMIN 3.8 GM/DL (3.2-4.5); ALKALINE PHOSPHATASE 64 U/L (40-136); BILIRUBIN,TOTAL 0.2 MG/DL (0.1-1.0); CALCIUM 8.6 MG/DL (8.5-10.1); GLUCOSE 111 MG/DL (70-105); TOTAL PROTEIN 5.9 GM/DL (6.4-8.2)
[2019-12-09] MEDS ORDERED: METR500T PO (15:28)
[2019-12-09 15:53] VITALS: BP 99/49
--- OUTSIDE RECORDS SUMMARY | 2019-12-09 19:03 | XMS REPORT | Continuity of Care Document ---
Author Organization Unknown Address Unknown Phone Unavailable Allergies Active Description Code Type Severity Reaction Onset Reported/Identified Relationship to Patient Clinical Status Yes clindamycin [id number] Drug Aller gy Unknown N/A 10/21/2018 Yes latex [id number] Drug Allergy Unknown N/A 10/21/2018 Medications There [...] STATUS TO OTHER ANTIBIOTIC AGENT 11/22/2018 JOSE OYO MD Ot Z90.4 9 ACQUIRED ABSENCE OF [...] F17.290 NICOTINE DEPENDENCE, OTHER TOBACCO PRODU 12/04/2018 DINGESS DO, SUKHDEEP Ot F20.9 SCHIZOPHRENIA, UNSPECIFIED 12/04/2018 MCCULLOUGH DO, SUKHDEEP Ot G40.909 EPILEPSY, UNSP, NOT INTRACTABLE, WITHOUT 12/04/2018 MCCULLOUGH DO, SUKHDEEP Ot J44.9 CHRONIC OBSTRUCTIVE PULMONARY DISEASE, U 12/04/2018 MCCULLOUGH DO, SUKHDEEP Ot R10.33 PERIUMBILICAL PAIN 12/04/2018 DINGESS DO, SUKHDEEP Ot T21.25XD BURN OF SECOND DEGREE OF BUTTOCK, SUBSEQ 12/04/2018 DINGESS DO, SUKHDEEP Ot T21.27XD BURN OF SECOND DEGREE OF FEMALE GENITAL 12/04/2018 DINGESS DO, SUKHDEEP Ot X19.XXXD CONTACT WITH OTHER HEAT AND HOT SUBSTANC 12/04/2018 MCCULLOUGH DO, SUKHDEEP Ot Z88.1 ALLERGY STATUS TO OTHER ANTIBIOTIC AGENT 12/04/2018 MCCULLOUGH DO, SUKHDEEP Ot Z90.49 ACQUIRED ABSENCE OF OTHER SPECIFIED PART 12/04/2018 MCCULLOUGH DO, SUKHDEEP Ot Z91.040 LATEX ALLERGY STATUS 12/04/2018 DINGESS DO, SUKHDEEP Ot Z91.14 PATIENT'S OTHER NONCOMPLIANCE [...] SUKHDEEP Ot Z91.040 LATEX ALLERGY STATUS 12/13/2018 [facility] PATIENT'S OTHER NONCOMPLIANCE [...] Z98. 51 TUBAL LIGATION STATUS 03/12/2019 MELANIE RODRIUGEZ MD Ot F17.290 NICOTINE DEPENDENCE, OTHER TOBACCO [...] Ot R10.2 PELVIC AND PERINEAL PAIN 05/16/2019 JSOE YOO MD Ot A74.9 CHLAMYDIAL INFECTION, UNSPECIFIED [...] G40.909 EPILEPSY, UNSP, NOT INTRACTABLE, WITHOUT 11/07/2019 DINGESS DO, SUKHDEEP Ot G47.00 INSOMNIA, UNSPECIFIED 11/07/2019 DINGESS DO, SUKHDEEP Ot J44.9 CHRONIC OBSTRUCTIVE PULMONARY DISEASE, U 11/07/2019 DINGESS DO, SUKHDEEP Ot R45.850 HOMICIDAL IDEATIONS 11/07/2019 DINGESS DO, SUKHDEEP Ot Z77.22 CNTCT W AND EXPSR TO ENVIRON TOBACCO SMO 11/07/2019 DINGESS DO, SUKHDEEP Ot Z88.1 ALLERGY STATUS TO OTHER ANTIBIOTIC AGENT 11/07/2019 DINGESS DO, SUKHDEEP Ot Z90.49 ACQUIRED ABSENCE OF OTHER SPECIFIED PART 11/07/2019 DINGESS DO, SUKHDEEP Ot Z91.040 LATEX ALLERGY STATUS 11/07/2019 DINGESS DO, SUKHDEEP Ot Z98.51 TUBAL LIGATION STATUS [...] F41.9 ANXIETY DISORDER, UNSPECIFIED 11/10/2019 YASMIN ALICEA MD Ot J44.9 CHRONIC OBSTRUCTIVE PULMONARY DISEASE, U 11/10/2019 YASMIN ALICEA MD Ot M54.9 DORSALGIA, UNSPECIFIED 11/10/2019 YASMIN ALICEA MD Ot Z88.1 ALLERGY STATUS TO OTHER ANTIBIOTIC AGENT 11/10/2019 YASMIN ALICEA MD Ot Z91.040 LATEX ALLERGY STATUS 12/04/2019 MELANIE RODRIGUEZ MD J Ot F17.210 NICOTINE DEPENDENCE, CIGARETTES, UNCOMPL 12/04/2019 APRIL RODRIGUEZ MDUS J Ot G35 MULTIPLE SCLEROSIS 12/04/2019 MELANIE RODRIGUEZ MD J Ot G62. 9 POLYNEUROPATHY, UNSPECIFIED 12/04/2019 APRIL RODRIGUEZ MDUS J Ot H60. 91 UNSPECIFIED OTITIS EXTERNA, RIGHT EAR 12/04/2019 MELANIE RODRIGUEZ MD J Ot J44. 9 CHRONIC OBSTRUCTIVE PULMONARY DISEASE, U 12/04/2019 APRIL RODRIGUEZ MDUS J Ot R10. 30 LOWER ABDOMINAL PAIN, UNSPECIFIED 12/04/2019 APRIL RODRIGUEZ MDUS J Ot R11. 2 NAUSEA WITH VOMITING, UNSPECIFIED 12/04/2019 MICHAEL NELSON, MELANIE J Ot R19. 7 DIARRHEA, UNSPECIFIED 12/04/2019 MICHAEL NELSON, MELANIE J Ot Z79.891 FDC (CURRENT) USE OF OPIATE ANALGE 12/04/2019 MELANIE RODRIGUEZ MD J Ot Z88. 1 ALLERGY STATUS TO OTHER ANTIBIOTIC AGENT 12/04/2019 MELANIE RODRIGUEZ MD J Ot Z91.040 LATEX ALLERGY STATUS 12/05/2019 SOCO GAYTAN MD Ot F17.210 NICOTINE DEPENDENCE, CIGARETTES, UNCOMPL 12/05/2019 SOCO GAYTAN MD Ot F41.9 ANXIETY DISORDER, UNSPECIFIED 12/05/2019 SOCO GAYTAN MD Ot G3 5 MULTIPLE SCLEROSIS 12/05/2019 SOCO GAYTAN MD Ot J44.9 CHRONIC OBSTRUCTIVE PULMONARY DISEASE, U 12/05/2019 SOCO GAYTAN MD Ot K52.9 NONINFECTIVE GASTROENTERITIS AND COLITIS 12/05/2019 SOCO GAYTAN MD Ot Z88.1 ALLERGY STATUS TO OTHER ANTIBIOTIC AGENT 12/05/2019 SOCO GAYTAN MD Ot Z91.040 LATEX ALLERGY STATUS Procedures There [...] 7-25 CREATININE 0.68 mg/dL 0.50-1.10 eGFR NON-AFR. [place] 110 mL/min/1.73m2 > OR = 60 eGFR [...] NRG Manual blood lymphocytes/100 leukocytes 31 % NR Manual eosinophils/100 leukocytes in nose 0 % NR Manual blood basophils/100 leukocytes 0 % NR Blood erythrocyte morphology finding identification [facility] Comprehensive metabolic panel - 05/27/19 11:55 Serum [...] Blood lymphocytes variant/100 leukocytes 3 % NRG Complete urinalysis with reflex to cultu re - 12/02/19 20:45 Urine color determination YELLOW NRG Urine clarity determination SLT CLOUDY NRG Urine pH measurement by test strip 5.5 5-9 Specific gravity of urine by test strip >= 1.016-1.022 Urine protein assay by test strip, semi-quantitative TRACE NEGATIVE Urine glucose detection by automated test strip NE GATIVE NEGATIVE Erythrocytes detection in urine sediment by light micr oscopy 3+ NEGATIVE Urine ketones detection by automated test strip NE GATIVE NEGATIVE Urine nitrite detection by test strip NEGATIVE NEGATIVE Urine total bilirubin detection by test strip 1+ NEGATIVE Urine urobilinogen measurement by automated test [...] in u rine sediment by light microscopy RARE NRG Crystals detection in urine sediment by light microsco py PRESENT NRG Casts detection in urine sediment by light microscopy NONE NRG Mucus detection in urine sediment by light microscopy MODERATE NRG Complete urinalysis with reflex to culture NO NRG Amorphous sediment detection in urine sediment by ligh t microscopy FEW NATALIE URATES NRG Urine drug screening test - 12/02/19 20: 45 Urine phencyclidine detection by screening method POSITIVE NEGATIVE Urine benzodiazepines detection by screening method [...] d white blood cell (WBC) differential - 12/02/19 20:50 Blood leukocytes automated count (number/volume) 10.8 10*3/uL 4.3-11.0 Blood erythrocytes automated count (number/volume) 4.04 10*6/uL 4.35-5.85 Venous blood hemoglobin measurement (mass/volume) 12.1 g/dL 11.5-16.0 Blood hematocrit (volume fraction) 36 % 35-52 Automated erythrocyte mean corpuscular volume 90 [ foz_us] 80-99 Automated erythrocyte mean corpuscular h emoglobin (mass per erythrocyte) 30 pg 25-34 Automated erythrocyte mean corpuscular h emoglobin concentration measurement (mass/volume) 33 g/dL 32-36 Automated erythrocyte distribution width ratio 16. 0 % 10.0- 14.5 Automated blood platelet count (count/volume) 391 10*3/uL 130-400 Automated blood platelet mean volume measurement 9.4 [foz_us] 7.4-10.4 Automated blood neutrophils/100 leukocytes 61 % 42-75 Automated blood lymphocytes/100 leukocytes 31 % 12-44 Blood monocytes/100 leukocytes 7 % 0-12 Automated blood eosinophils/100 leukocytes 1 % 0-10 Automated blood basophils/100 leukocytes 0 % 0-10 Blood neutrophils automated count (number/volume) 6.6 10*3 1.8-7.8 Blood lymphocytes automated count (number/volume) 3.3 10*3 1.0-4.0 Blood monocytes automated count (number/volume) 0. 8 10*3 0.0-1.0 Automated eosinophil count 0.1 10*3/uL 0 .0-0.3 Automated blood basophil count (count/volume) 0.0 10*3/uL 0.0-0.1 Comprehensive metabolic panel - 12/02/19 20:50 Serum or plasma sodium measurement (moles/volume) 141 mmol/L 135-145 Serum or plasma potassium measurement (moles/volume) 4.5 mmol/L 3.6-5.0 Serum or plasma chloride measurement (moles/volume) 106 mmol/L 98-107 Carbon dioxide 24 mmol/L 21-32 Serum or plasma anion gap determination (moles/volume) 11 mmol/L 5-14 Serum or plasma urea nitrogen measurement (mass/volume ) 14 mg/dL 7-18 Serum or plasma creatinine measurement (mass/volume) 0.89 mg/dL 0.60-1.30 Serum or plasma urea nitrogen/creatinine mass ratio 16 NRG Serum or plasma creatinine measurement w ith calculation of estimated glomerular filtration rate > NRG Serum or plasma glucose measurement (mass/volume) 85 mg/dL 70-105 Serum or plasma calcium measurement (mass/volume) 9.7 mg/dL 8.5-10.1 Serum or plasma total bilirubin measurement (mass/volu me) 0.6 mg/dL 0.1-1.0 Serum or plasma alkaline phosphatase henrique surement (enzymatic activity/volume) 76 U/L 40-136 Serum or plasma aspartate aminotransfera se measurement (enzymatic activity/volume) 21 U/L 5-34 Serum or plasma alanine aminotransferase measurement (enzymatic activity/volume) 12 U/L 0-55 Serum or plasma protein measurement (mass/volume) 7.4 g/dL 6.4-8.2 Serum or plasma albumin measurement (mass/volume) 4.8 g/dL 3.2-4.5 Encounters ACCT No. Visit Date/Time Discharge Status Pt. Type Provider Facility Loc./Unit Complaint [id number] 05/16/2019 14:00:00 05/16/2019 23:59: 59 CLS Outpatient CAMILLE SHETH [facility] [id number] 05/16/2019 13:00:00 Document Registration [id number] 03/17/2019 10:30:00 Document Registration [id number] 08/09/2018 11:00:00 Document Registration [id number] 12/02/2019 20:09:00 21:43:00 DIS Outpatient LUCILA NELSON, SOCO Wilder [facility] FS PSYCH EVAL [id number] 11/27/2019 16:39:00 18:25:00 DIS Outpatient MICHAEL NELSON, MELANIE Galan [facility] ER FS VOMITING,NAUSEA [id number] 11/06/2019 20:39:00 21:29:00 DIS Outpatient DEANNE NELSON, YASMIN Lawrence [facility] ER FS BACK PAIN,NAUSEA,HEADA CHES [id number] 10/24/2019 11:07:00 12:05:00 DIS Emergency ROVENSTINDIA SWEENEY DO L [facility] ER FS NAUSEA [id number] 2019 10:44:00 12:44:00 DIS Emergency MICHAEL NELSON, MELANIE Galan [facility] ER FS KIDNEY PAIN [id number] 05/27/2019 11:07:00 12:45:00 DIS Emergency SOCO GAYTAN MD [facility] ER FS PSYCH EVAL [id number] 05/16/2019 19:54:00 20:58:00 DIS Emergency JOSE YOO MD [facility] ER FS POSSIBLE STD [id number] 04/30/2019 20:59:00 22:04:00 DIS Emergency RIYA RIOS MD [facility] ER FS NAUSEA/VOMITTING [id number] 03/17/2019 09:27:00 23:59:59 CLS Outpatient DOMENIC NELSON, CAMILLE Rivera [facility] RAD FS R10.2 [id number] 03/09/2019 14:56:00 16:12:00 DIS Emergency MICHAEL NELSON, MELANIE Galan [facility] ER FS DIZZINESS [id number] 01/25/2019 17:28:00 18:08:00 DIS Emergency MELANIE RODRIGUEZ MD [facility] ER FS VOMITING [id number] 01/06/2019 19:54:00 21:48:00 DIS Emergency JOSE YOO MD [facility] ER FS ANKLE LAC [id number] 01/03/2019 23:45:00 01:52:00 DIS Outpatient FER NELSON, GUIDO Martin [facility] ER FS DETOX [id number] 12/06/2018 22:12:00 00:17:00 DIS Outpatient SUKHDEEP MCCULLOUGH DO [facility] FS MENTAL HEALTH SCREENING [id number] 12/06/2018 20:01:00 20:32:00 DIS Emergency MCCULLOUGH SUKHDEEP LUNA [facility] FS MENTAL HEALTH SCREENING [id number] 11/28/2018 04:32:00 05:47:00 DIS Emergency SUKHDEEP MCCULLOUGH DO [facility] ER FS VAGINAL ISSUES [id number] 11/22/2018 01:23:00 03:20:00 DIS Emergency JOSE YOO MD [facility] ER FS ESPINOZA TO BOTTOM [id number] 10/21/2018 20:32:00 22:08:00 DIS Emergency SUKHDEEP MCCULLOUGH DO [facility] ER FS BACK PAIN,VOMITING [id number] 08/06/2018 15:37:00 17:50:00 DIS Emergency MICHAEL NELSON, MELANIE Galan [facility] ER FS POSSIBLE SPRAIN RT MACY Craft
== END 2019-12-09 15:32 | disposition home or self-care (01) ==
LOC: EDUNIT# 14:36 → ER FS 14:38
DX: R10.30 Lower abdominal pain, unspecified (principal); A59.00 Urogenital trichomoniasis, unspecified; G35 Multiple sclerosis; J44.9 Chronic obstructive pulmonary disease, unspecified; G40.909 Epilepsy, unspecified, not intractable, without status epilepticus; G62.9 Polyneuropathy, unspecified; F41.9 Anxiety disorder, unspecified; F20.9 Schizophrenia, unspecified; K76.9 Liver disease, unspecified; F17.210 Nicotine dependence, cigarettes, uncomplicated; Z79.899 Other long term (current) drug therapy; Z88.1 Allergy status to other antibiotic agents; Z91.040 Latex allergy status
CPT/HCPCS: 36415; 80053; 81000; 84703; 85025; 87088

== ENCOUNTER 2020-07-27 23:14 | Emergency (ER) | payer MEDICAID ==
[~2020-07-27] VITALS: Ht 157.4 cm; Wt 63.0 kg
[~2020-07-27 23:14] MED LIST changes: -CIPR500T4 PO; +CIPR500T5 PO
[2020-07-27 23:59] LABS: BACTERIA,URINE NEGATIVE /HPF; BILIRUBIN,URINE NEGATIVE (NEGATIVE); CLARITY,URINE CLEAR; COLOR,URINE PALE YELLOW; GLUCOSE, URINE (UA) NEGATIVE (NEGATIVE); KETONES,URINE NEGATIVE (NEGATIVE); LEUKOCYTE ESTERASE ,URINE NEGATIVE (NEGATIVE); NITRITE,URINE NEGATIVE (NEGATIVE); PROTEIN,URINE NEGATIVE (NEGATIVE); SQUAMOUS EPITHELIAL CELL,UR 0-2 /HPF
[2020-07-28 00:02] LABS: AMPHETAMINE SCREEN, URINE NEGATIVE (NEGATIVE); BARBITURATE SCREEN URINE NEGATIVE (NEGATIVE); BENZODIAZEPINES SCREEN URINE NEGATIVE (NEGATIVE); CANNABINOID SCREEN, URINE NEGATIVE (NEGATIVE); COCAINE SCREEN URINE NEGATIVE (NEGATIVE); METHADONE STAT NEGATIVE (NEGATIVE); METHAMPHETAMINE SCREEN URINE S NEGATIVE (NEGATIVE); OPIATE SCREEN URINE NEGATIVE (NEGATIVE); OXYCODONE STAT NEGATIVE (NEGATIVE); PROPOXYPHENE STAT NEGATIVE (NEGATIVE); TRICYCLIC ANTIDEPRESSANTS SCRE POSITIVE (NEGATIVE)
[2020-07-28] MEDS ORDERED: ONDANSETRON 4 MG (ZOFRAN) ORAL DISSOLVE TAB PO STA (00:17)
[2020-07-28] MEDS ORDERED: cefTRIAXone 1,000 MG/2.86 ml vial (IM ONLY) IM STA (00:17)
--- NOTE | 2020-07-28 00:17 | ED General ---
General Chief Complaint: Chest Wall Stated Complaint: RUQ, BACK PAIN Nursing Triage Note: Pt in per [facility] with RUQ/rib pain, reports ongoing for X2 years, history of X4 packs a day smoker now reports <2 packs a day, chronic cough, pain in rib area and back. LMP X2 days ago. Pt unable to remain still, denies drug use. Nursing Sepsis Screen: No Definite Risk Source of Information: Patient, EMS History of Present Illness Date Seen by Provider: Jul 27, 2020 Time Seen by Provider: 23:31 Initial Comments 40 yo Female presents with EMS having complaints of right sided rib and chest pain, worse with breathing and cough. She reports this has been going on for over 2 years but worse in the last few months. She smokes several packs of cigarettes a day. She has a chronic cough from this. She brings up yellow- green sputum. She also has several dental caries and multiple missing teeth. She is very anxious and jittery with difficulty trying to concentrate or sit still. She has congestion and sneezing with cough. She states she has had some subjective fever and chills. She has had nausea and headache but denies any vomiting. She also is complaining of the rash and itching to the inside of her left arm and thinks she may have poison joe. 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 Allergies and Home Medications Allergies Coded Allergies: clindamycin (Unverified Adverse Reaction, Unknown, 10/21/18) latex (Unverified Adverse Reaction, Unknown, 10/21/18) Home Medications Albuterol Sulfate 1 Puff Puff, 2 PUFF IH Q4H PRN for SHORTNESS OF BREATH 1 PUFF = 90 MCG Prescribed by: GUIDO DAVILA on 01/04/19 0146 Azithromycin 250 Mg Tablet, 250 MG PO UD TAKE 2 TABLETS ON DAY ONE THEN TAKE 1 TABLET DAILY FOR FOUR MORE DAYS Prescribed by: JOSE YOO on 07/28/20 0033 Cephalexin 500 Mg Capsule, 500 MG PO QID Prescribed by: SOCO GAYTAN on 05/27/19 1239 Ciprofloxacin HCl 500 Mg Tablet, 500 MG PO BID Prescribed by: JOSE YOO on 05/16/192051 Ciprofloxacin HCl/Dexameth 7.5 Ml Soln, 4 DROPS OT BID Prescribed by: MELANIE RODRIGUEZ on 11/27/19 1821 Docusate Sodium 100 Mg Capsule, 100 MG PO DAILY Prescribed by: SUKHDEEP MCCULLOUGH on 11/28/18 0544 Metronidazole 500 Mg Tablet, 500 MG PO BID Prescribed by: MELANIE RODRIGUEZ on 05/29/19 1201 Metronidazole 500 Mg Tablet, 500 MG PO BID Prescribed by: INDIA ROGEL on 12/09/19 1528 Mupirocin Calcium 15 Gm Cream..g., 15 GM TP TID Prescribed by: INDIA ROGEL on 10/24/19 1155 Nystatin 15 Gm Cream..g., 1 GM TP BID Prescribed by: MELANIE RODRIGUEZ on 05/29/19 1113 Omeprazole 40 Mg Capsule.dr, 40 MG PO DAILY Prescribed by: MELANIE RODRIGUEZ on 01/25/19 1757 Omeprazole 40 Mg Capsule.dr, 40 MG PO DAILY Prescribed by: MELANIE RODRIGUEZ on 03/09/19 1608 Ondansetron 4 Mg Tab.rapdis, 4 MG PO Q6H Prescribed by: SUKHDEEP MCCULLOUGH on 10/21/18 2205 Ondansetron 4 Mg Tab.rapdis, 4 MG PO Q6H PRN for NAUSEA/VOMITING Prescribed by: MELANIE RODRIGUEZ on 01/25/19 1757 Ondansetron 4 Mg Tab.rapdis, 4 MG PO Q6H PRN for NAUSEA/VOMITING Prescribed by: MELANIE RODRIGUEZ on 03/09/19 1608 Ondansetron 4 Mg Tab.rapdis, 4 MG PO Q6H PRN for NAUSEA/VOMITING Prescribed by: INDIA ROGEL on 10/24/19 1155 Ondansetron 4 Mg Tab.rapdis, 4 MG PO Q6H PRN for NAUSEA/VOMITING Prescribed by: MELANIE RODRIGUEZ on 11/27/19 1820 Sulfamethoxazole/Trimethoprim 1 Each Tablet, 1 EACH PO BID Prescribed by: JOSE YOO on 01/06/19 214 Sulfamethoxazole/Trimethoprim 1 Each Tablet, 1 EACH PO BID Prescribed by: RIYA RIOS on 04/30/192155 Tramadol HCl 50 Mg Tablet, 50 MG PO Q6H PRN for PAIN Prescribed by: SUKHDEEP MCCULLOUGH on 11/28/18 0544 Patient Home Medication List Home Medication List Reviewed: Yes Review of Systems Review of Systems Constitutional: No chills, No fever; malaise EENTM: ear pain (Feels like her ears are plugged right more than the left), dental problems (Widespread dental decay with multiple missing teeth), nose congestion; No eye pain, No epistaxis Respiratory: cough; No hemoptysis; short of breath; No stridor; wheezing Cardiovascular: chest pain (Right-sided chest wall and rib pain present for over 2 years but worse in the last few months); No edema, No palpitations Gastrointestinal: nausea; No vomiting Genitourinary: No dysuria; frequency Musculoskeletal: no symptoms reported Skin: rash (Left inner arm red and itching where she thinks there may be poison joe) Psychiatric/Neurological: Emotional Problems, Headache; Denies Numbness, Denies Paresthesia, Denies Seizure Hematologic/Lymphatic: No Symptoms Reported Immunological/Allergic: no symptoms reported Past Rezgrbh-Vtbehd-Esjbmm Hx Past Med/Social Hx: Reviewed Nursing Past Med/Soc Hx Patient Social History Alcohol Use: Occasionally Uses Number of Drinks Today: AA Alcohol Beverage of Choice: Beer Drug of Choice: METH Smoking Status: Current Everyday Smoker Type Used: Cigarettes 2nd Hand Smoke Exposure: Yes Recent Infectious Disease Expo: No Recent Hopitalizations: No Immunizations Up To Date Tetanus Booster (TDap): Less than 5yrs Seasonal Allergies Seasonal Allergies: No Past Medical History Surgeries: Yes (C/S X 3) Appendectomy, Section, Tubal Ligation Respiratory: Yes Asthma, COPD Cardiac: No Neurological: Yes (EPILEPSY) Multiple Sclerosis, Neuropathy, Seizure Disorder : No Last Menstrual Period: Jul 25, 2020 Genitourinary: No Gastrointestinal: Yes Liver Disease/Jaundice Musculoskeletal: No Endocrine: No HEENT: No Cancer: No Psychosocial: Yes Anxiety, Schizophrenia Integumentary: No Blood Disorders: No Physical Exam Vital Signs Vital Signs - First Documented 07/27/20 23:15 Temp 36.2 Pulse 97 Resp 20 B/P (MAP) 135/75 (95) Pulse Ox 98 O2 Delivery Room Air Capillary Refill : Less Than 3 Seconds Height, Weight, BMI Height: 5'4.00" Weight: 134lbs. 0oz. 60.663698mn; 25.00 BMI Method:Stated General Appearance: Anxious (Cannot stay still), Moderate Distress (has multiple complaints and continues to add more complaints as she waits) HEENT: PERRL/EOMI; No Photophobia; Other (widespread dental decay and missing multiple teeth) Neck: Full Range of Motion, Normal Inspection, Non Tender, Supple Respiratory: Decreased Breath Sounds; No Rales, No Respiratory Distress, No Rhonci, No Stridor; Wheezing, Other (tender to palpation on right side of chest wall) Cardiovascular: Regular Rate, Rhythm, Normal Peripheral Pulses Gastrointestinal: Normal Bowel Sounds, No Pulsatile Mass, Soft Extremity: Normal Capillary Refill, No Pedal Edema Neurologic/Psychiatric: Alert, Oriented x3, No Motor/Sensory Deficits Skin: Warm/Dry, Rash (erythematous papular rash to inside of left upper arm) Progress/Results/Core Measures Suspected Sepsis Recent Fever Within 48 Hours: No Infection Criteria Present: None New/Unexplained Altered Menta: No Sepsis Screen: No Definite Risk SIRS Temperature: Pulse: 97 Respiratory Rate: 20 Blood Pressure 135 /75 Mean: 95 Results/Orders Lab Results Laboratory Tests Test 07/27/20 23:39 Range/Units Urine Color PALE YELLOW Urine Clarity CLEAR Urine pH 7.0 5-9 Urine Specific [place] <=1.005 1.016-1.022 Urine Protein NEGATIVE NEGATIVE Urine Glucose (UA) NEGATIVE NEGATIVE Urine Ketones NEGATIVE NEGATIVE Urine Nitrite NEGATIVE NEGATIVE Urine Bilirubin NEGATIVE NEGATIVE Urine Urobilinogen 0.2 < = 1.0 MG/DL Urine Leukocyte Esterase NEGATIVE NEGATIVE Urine RBC (Auto) NEGATIVE NEGATIVE Urine RBC NONE /HPF Urine WBC NONE /HPF Urine Squamous Epithelial Cells 0-2 /HPF Urine Renal Epithelial Cells /HPF Urine Crystals NONE /LPF Urine Bacteria NEGATIVE /HPF Urine Casts NONE /LPF Urine Mucus NEGATIVE /LPF Urine Culture Indicated NO Urine Opiates Screen NEGATIVE NEGATIVE Urine Oxycodone Screen NEGATIVE NEGATIVE Urine Methadone Screen NEGATIVE NEGATIVE Urine Propoxyphene Screen NEGATIVE NEGATIVE Urine Barbiturates Screen NEGATIVE NEGATIVE Ur Tricyclic Antidepressants Screen POSITIVE H NEGATIVE Urine Phencyclidine Screen NEGATIVE NEGATIVE Urine Amphetamines Screen NEGATIVE NEGATIVE Urine Methamphetamines Screen NEGATIVE NEGATIVE Urine Benzodiazepines Screen NEGATIVE NEGATIVE Urine Cocaine Screen NEGATIVE NEGATIVE Urine Cannabinoids Screen NEGATIVE NEGATIVE My Orders Orders - JOSE YOO MD Chest Pa/Lat (2 View) (07/27/20 23:32) Ua Culture If Indicated (07/27/20 23:46) Drug Screen Stat (Urine) (07/27/20 23:46) Urine Bedside (07/27/20 23:46) Ondansetron Oral Dissolve Tab (Zofran (07/28/20 00:17) Methylprednisolone Acetate Inj (Depo-Med (07/28/20 00:30) Ceftriaxone For Im Use (Rocephin For Im (07/28/20 00:17) Lidocaine 1% Inj 20 Ml (Xylocaine 1% Inj (07/28/20 00:30) Dexamethasone Injection (Decadron Inje (07/28/20 00:17) Rx-Albuterol Inhaler (Rx-Ventolin Hfa) (07/28/20 00:30) Vital Signs/I&O 07/27/20 23:15 Temp 36.2 Pulse 97 Resp 20 B/P (MAP) 135/75 (95) Pulse Ox 98 O2 Delivery Room Air Capillary Refill : Less Than 3 Seconds Blood Pressure Mean: 95 Progress Note : Progress Note On my review of her two-view chest x-ray she has no definite infiltrate. There is no pneumothorax. She has no effusion. This appears similar to chest x-ray from 2019. Her vitals are stable. she has no acute definite pneumonia. With her smoking history will treat with antibiotics for possible bronchitis/copd exacerbation. She was going to the bathroom frequently so a UA was obtained and since she was so jittery and could not sit still a urine drug screen was also obtained. The urinalysis did not show infection and she was not . Her drug screen was negative for everything the tricyclic's. Will treat with a steroid to help with inflammation and pain, and albuterol inhaler, Zofran to help with nausea, Zithromax for possible bronchitis/COPD exacerbation. Stressed importance of following up with the clinic and stopping smoking Diagnostic Imaging Diagonstic Imaging: Xray Plain Films/CT/US/NM/MRI: chest Comments On my review of the two-view chest x-ray it appears similar to 2019 films of her chest. She had no definite infiltrate, pulmonary effusion, pneumothorax. She had some flattening of her diaphragms consistent with COPD changes. Departure Impression Primary Impression: COPD exacerbation Additional Impressions: Dental decay Pleuritic chest pain Tobacco abuse Contact dermatitis Qualified Codes: L24.9 - Irritant contact dermatitis, unspecified cause Nausea Disposition: 01 HOME, SELF-CARE Condition: Stable Departure-Patient Inst. Decision time for Depature: 00:30 Referrals: CAMILLE SHETH MD (PCP/Family) Primary Care Physician [facility] Patient Instructions: COPD Exacerbation, Adult ED, Dental Pain ED, Skin Rash ED, Contact Dermatitis (DC), Pleuritic Chest Pain (DC), How to Use Your Metered Dose Inhaler (Adults) Add. Discharge Instructions: Take antibiotic to treat for chronic bronchitis infection. Use inhaler to help with cough and shortness of breath. The steroid shot from tonight will help with pain and inflammation in chest and chest wall. It will also help with your rash and the congestion. Use Mucinex over the counter to help with congestion and cough Follow up with [facility] clinic for continued care and to see if they can help get you with dental clinic as well as pulmonary doctor about your lungs and COPD. All discharge instructions reviewed with patient and/or family. Voiced understanding. Scripts Azithromycin (Azithromycin) 250 Mg Tablet 250 MG PO UD for 5 Days, #6 TAB 0 Refills TAKE 2 TABLETS ON DAY ONE THEN TAKE 1 TABLET DAILY FOR FOUR MORE DAYS Prov: JOSE YOO MD 07/28/20 JOSE YOO MD Jul 28, 2020 00:17
[2020-07-28] MEDS ORDERED: LIDOCAINE 1% INJ 20 ML 20 ML VIAL INJ ONE (00:30)
[2020-07-28] MEDS ORDERED: RX-ALBUTEROL INHALER (VENTOLIN HFA) 18 GM IH PRN (00:30)
[2020-07-28] MEDS ORDERED: methylPREDNISolone 80 MG/ML (DEPO MEDROL) VIAL IM ONE (00:30)
[2020-07-28] MEDS ORDERED: AZIT250T12 PO (00:33)
[2020-07-28 00:47] VITALS: BP 116/80
--- NOTE | 2020-07-28 07:01 | Diagnostic Imaging Report ---
INDICATION: RIGHT-SIDED RIB PAIN. TECHNIQUE: Two view chest 11:30 PM CORRELATION STUDY: 01/04/2019 FINDINGS: The heart size, mediastinal configuration and pulmonary vasculature are within normal limits. The lungs are hyperinflated but overall appearing clear. There is no significant pleural effusion or pneumothorax. Partial visualization internal fixation hardware of the left humerus. IMPRESSION: 1. Negative for acute abnormality of the chest. Dictated by: Dictated on workstation # [id number]
== END 2020-07-28 00:49 | disposition home or self-care (01) ==
LOC: EDUNIT# 23:14 → ER FS 23:16
DX: J44.1 Chronic obstructive pulmonary disease with (acute) exacerbation (principal); K02.9 Dental caries, unspecified; R07.81 Pleurodynia; F17.200 Nicotine dependence, unspecified, uncomplicated; L25.9 Unspecified contact dermatitis, unspecified cause; R11.0 Nausea; I10 Essential (primary) hypertension; F41.9 Anxiety disorder, unspecified; F17.210 Nicotine dependence, cigarettes, uncomplicated; Z88.1 Allergy status to other antibiotic agents; Z91.040 Latex allergy status
CPT/HCPCS: 71046; 80306; 81000; 84703

== ENCOUNTER 2021-06-14 21:55 | Emergency (ER) | payer SELFPAY ==
[~2021-06-14 21:55] MED LIST changes: +AZIT250T12 PO; -OMEP40CA27 PO; +OMEP40CA6 PO; -SULF1TAB35 PO; +SULF1TAB38 PO
[2021-06-14 22:55] VITALS: BP 117/89
[2021-06-14 23:22] LABS: BILIRUBIN,URINE NEGATIVE (NEGATIVE); CLARITY,URINE CLEAR; COLOR,URINE YELLOW; GLUCOSE, URINE (UA) NEGATIVE (NEGATIVE); KETONES,URINE NEGATIVE (NEGATIVE); LEUKOCYTE ESTERASE ,URINE NEGATIVE (NEGATIVE); NITRITE,URINE NEGATIVE (NEGATIVE); PH,URINE 6.5 (5-9); PROTEIN,URINE NEGATIVE (NEGATIVE)
[2021-06-14 23:31] LABS: BACTERIA,URINE TRACE /HPF
--- NOTE | 2021-06-14 23:46 | ED Abdominal Pain ---
General Chief Complaint: General Problems/Pain Stated Complaint: COUGH/VOMITING/STUFFY NOSE Source of Information: Patient Exam Limitations: No Limitations History of Present Illness Date Seen by Provider: Jun 14, 2021 Time Seen by Provider: 23:22 Initial Comments Patient with 1 day of left flank pain similar to her previous UTIs. Treated 2 weeks ago for trichomonas. Successful resolution of symptoms. Bactrim last week for uncomplicated UTI and her symptoms improved but did not completely go away. Dysuria positive, frequency present. Took some hydrocodone couple hours ago. Tylenol 5 hours ago. Negative for fevers or chills. No cough, shortness of breath, discharge. Has had diarrhea off and on for the past couple weeks. LMP 1 month ago. Patient has a history of IBS diarrhea type. Allergies and Home Medications Allergies Coded Allergies: clindamycin (Unverified Adverse Reaction, Unknown, 10/21/18) latex (Unverified Adverse Reaction, Unknown, 10/21/18) Patient Home Medication List Home Medication List Reviewed: Yes Albuterol Sulfate (Proair Hfa) 1 Puff Puff, 2 PUFF IH Q4H PRN for SHORTNESS OF BREATH Prescribed by: GUIDO DAVILA on 01/04/19 0146 Azithromycin (Azithromycin) 250 Mg Tablet, 250 MG PO UD Prescribed by: JOSE YOO on 07/28/20 0033 Cephalexin (Keflex) 500 Mg Capsule, 500 MG PO QID Prescribed by: SOCO GAYTAN on 05/27/19 1239 Ciprofloxacin HCl (Ciprofloxacin HCl) 500 Mg Tablet, 500 MG PO BID Prescribed by: JOSE YOO on 05/16/192051 Ciprofloxacin HCl/Dexameth (Ciprodex Otic Suspension) 7.5 Ml Soln, 4 DROPS OT BID Prescribed by: MELANIE RODRIGUEZ on 11/27/19 1821 Docusate Sodium (Colace) 100 Mg Capsule, 100 MG PO DAILY Prescribed by: SUKHDEEP MCCULLOUGH on 11/28/18 0544 Metronidazole (Flagyl) 500 Mg Tablet, 500 MG PO BID Prescribed by: MELANIE RODRIGUEZ on 05/29/19 1201 Metronidazole (Flagyl) 500 Mg Tablet, 500 MG PO BID Prescribed by: INDIA ROGEL on 12/09/19 1528 Mupirocin Calcium (Mupirocin) 15 Gm Cream..g., 15 GM TP TID Prescribed by: INDIA ROGEL on 10/24/19 1155 Nystatin (Nystatin) 15 Gm Cream..g., 1 GM TP BID Prescribed by: MELANIE RODRIGUEZ on 05/29/19 1113 Omeprazole (Omeprazole) 40 Mg Capsule.dr, 40 MG PO DAILY Prescribed by: MELANIE RODRIGUEZ on 01/25/19 1757 Omeprazole (Omeprazole) 40 Mg Capsule.dr, 40 MG PO DAILY Prescribed by: MELANIE RODRIGUEZ on 03/09/19 1608 Ondansetron (Ondansetron Odt) 4 Mg Tab.rapdis, 4 MG PO Q6H Prescribed by: SUKHDEEP MCCULLOUGH on 10/21/18 2205 Ondansetron (Ondansetron Odt) 4 Mg Tab.rapdis, 4 MG PO Q6H PRN for NAUSEA/VOMITING Prescribed by: MELANIE RODRIGUEZ on 01/25/19 1757 Ondansetron (Ondansetron Odt) 4 Mg Tab.rapdis, 4 MG PO Q6H PRN for NAUSEA/VOMITING Prescribed by: MELANIE RODRIGUEZ on 03/09/19 1608 Ondansetron (Ondansetron Odt) 4 Mg Tab.rapdis, 4 MG PO Q6H PRN for NAUSEA/VOMITING Prescribed by: INDIA ROGEL on 10/24/19 1155 Ondansetron (Ondansetron Odt) 4 Mg Tab.rapdis, 4 MG PO Q6H PRN for NAUSEA/VOMITING Prescribed by: MELANIE RODRIGUEZ on 11/27/19 1820 Sulfamethoxazole/Trimethoprim (Bactrim Ds Tablet) 1 Each Tablet, 1 EACH PO BID Prescribed by: JOSE YOO on 01/06/19 2144 Sulfamethoxazole/Trimethoprim (Bactrim Ds Tablet) 1 Each Tablet, 1 EACH PO BID Prescribed by: RIYA RIOS on 04/30/19 215 Tramadol HCl (Tramadol HCl) 50 Mg Tablet, 50 MG PO Q6H PRN for PAIN Prescribed by: SUKHDEEP MCCULLOUGH on 11/28/18 2620 Review of Systems Review of Systems Constitutional: No chills, No diaphoresis EENTM: No Blurred Vision, No Double Vision Respiratory: Denies Cough, Denies Orthopnea Cardiovascular: Denies Chest Pain, Denies Lightheadedness Gastrointestinal: See HPI; Denies Abdominal Pain, Denies Constipated; Diarrhea; Denies Nausea Genitourinary: See HPI, Burning; Denies Discharge Musculoskeletal: No back pain, No joint pain Psychiatric/Neurological: Denies Anxiety, Denies Depressed All Other Systems Reviewed Negative Unless Noted: Yes Past Qqdjiop-Rlnual-Cyqosu Hx Patient Social History Tobacco Use?: Yes Tobacco type used: Cigarettes Use of E-Cig and/or Vaping dev: No Substance use?: No Alcohol Use?: No Pt feels they are or have been: No Immunizations Up To Date Tetanus Booster (TDap): Less than 5yrs Influenza Vaccine Up-to-Date: No; Not Current COVID19 Vaccine 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: [employer] Seasonal Allergies Seasonal Allergies: No Past Medical History Surgeries: Yes (C/S X 3) Appendectomy, Section, Tubal Ligation Respiratory: Yes Asthma, COPD Cardiac: No Neurological: Yes (EPILEPSY) Multiple Sclerosis, Neuropathy, Seizure Disorder Genitourinary: No Gastrointestinal: Yes Liver Disease/Jaundice Musculoskeletal: No Endocrine: No HEENT: No Cancer: No Psychosocial: Yes Anxiety, Schizophrenia Integumentary: No Blood Disorders: No Physical Exam Vital Signs Vital Signs - First Documented 06/14/21 22:55 Temp 36.7 Pulse 78 Resp 18 B/P (MAP) 117/89 (98) Pulse Ox 98 Capillary Refill : Height/Weight/BMI Height: 5'4.00" Weight: 134lbs. 0oz. [id number]; 25.00 BMI Method:Stated General Appearance: WD/WN, no apparent distress HEENT: PERRL/EOMI, normal ENT inspection, pharynx normal Neck: full range of motion, supple, normal inspection Respiratory: lungs clear, normal breath sounds, no respiratory distress, no accessory muscle use Cardiovascular: normal peripheral pulses, regular rate, rhythm Peripheral Pulses: 2+ Radial Pulses (R), 2+ Radial Pulses (L) Gastrointestinal: normal bowel sounds, non tender, soft, no organomegaly Back: normal inspection, no CVA tenderness, no vertebral tenderness Neurologic/Psychiatric: alert, normal mood/affect, oriented x 3 Skin: normal color, warm/dry Progress/Results/Core Measures Results/Orders Lab Results Laboratory Tests Test 06/14/21 23:00 06/14/21 23:05 Range/Units Urine Color YELLOW Urine Clarity CLEAR Urine pH 6.5 5-9 Urine Specific Faber 1.025 H 1.016-1.022 Urine Protein NEGATIVE NEGATIVE Urine Glucose (UA) NEGATIVE NEGATIVE Urine Ketones NEGATIVE NEGATIVE Urine Nitrite NEGATIVE NEGATIVE Urine Bilirubin NEGATIVE NEGATIVE Urine Urobilinogen 0.2 < = 1.0 MG/DL Urine Leukocyte Esterase NEGATIVE NEGATIVE Urine RBC (Auto) NEGATIVE NEGATIVE Urine RBC NONE /HPF Urine WBC NONE /HPF Urine Squamous Epithelial Cells 10-25 H /HPF Urine Crystals NONE /LPF Urine Bacteria TRACE /HPF Urine Casts NONE /LPF Urine Mucus SMALL H /LPF Urine Culture Indicated NO Influenza Type A Antigen NEGATIVE NEGATIVE Influenza Type B Antigen NEGATIVE NEGATIVE My Orders Orders - MICHAELMELANIE Angelia Coronavirus Sars-Cov-2 So 2019 (06/14/21 23:14) Influenza A & B Antigens (06/14/21 23:14) Ua Culture If Indicated (06/14/21 23:14) Urine Bedside (06/14/21 23:14) Phenazopyridine Tablet (Pyridium Tablet) (06/15/21 00:00) Nitrofurantoin Capsule,Macro (Macrobid C (06/15/21 00:00) Medications Given in ED Current Medications Medications Dose Ordered Sig/Anabel Route Start Time Stop Time Status Last Admin Dose Admin Nitrofurantoin Macrocrystals 100 mg ONCE ONCE PO 06/15/21 00:00 06/15/21 00:01 DC 06/15/21 00:04 100 MG Phenazopyridine HCl 200 mg ONCE ONCE PO 06/15/21 00:00 06/15/21 00:01 DC 06/15/21 00:04 200 MG Vital Signs/I&O 06/14/21 22:55 Temp 36.7 Pulse 78 Resp 18 B/P (MAP) 117/89 (98) Pulse Ox 98 Blood Pressure Mean: 98 Progress Progress Note : Time: 23:46 Progress Note Aseptic vital signs. Urinalysis unremarkable. Is potential she has untreated UTI. No previous urine cultures to guide us. We will put her on Macrobid and give her some Pyridium and have her follow-up with her primary care doctor. Departure Impression Primary Impression: Urethritis Disposition: 01 HOME, SELF-CARE Condition: Stable Departure-Patient Inst. Decision time for Depature: 00:07 Referrals: CAMILLE SHETH MD (PCP/Family) Primary Care Physician ANDREW FLOWERS MD Patient Instructions: Urethritis (DC), Urinary Tract Infection, Adult (DC) Add. Discharge Instructions: Not entirely clear where the infection is coming from but we can send off a couple test should be back in a few days and we will call you if any of them come back positive. In the meanwhile I want you to call Dr. Flowers, urologist and make a follow-up appointment with him in the next week or so to discover what is wrong with your urinary tract system why you have these [id number] infections. Drink plenty of fluids. Pyridium 200 mg twice a day for up to 2 days in a row as needed for painful urinary tract. Do not use them for more than 2 days in a row without taking a week off of the Pyridium. Pyridium will cause your urine to turn a dark orangeish red color; this is normal. You may also use Tylenol and ibuprofen. Macrobid 1 capsule twice a day for the next 10 days. All discharge instructions reviewed with patient and/or family. Voiced understanding. Scripts Nitrofurantoin Monohyd/M-Cryst (Macrobid 100 mg Capsule) 100 Mg Capsule 1 TAB PO BID for 10 Days, #20 CAP 0 Refills Prov: MELANIE RODRIGUEZ 06/15/21 Phenazopyridine HCl (Pyridium) 200 Mg Tablet 1 TAB PO BID PRN for PAIN-BREAKTHROUGH for 2 Days, #4 TAB 0 Refills Prov: MELANIE RODRIGUEZ 06/15/21 Copy Copies To 1: ANDREW FLOWERS MD, TITUS J Jun 14, 2021 23:46
[2021-06-15] MEDS ORDERED: PHENAZOPYRIDINE 100 MG (PYRIDIUM) TABLET PO ONE
[2021-06-15] MEDS ORDERED: NITROFURANTOIN 100 MG (MACROBID) CAPSULE PO ONE
[2021-06-15] MEDS ORDERED: PHEN-640 PO (00:10)
[2021-06-15] MEDS ORDERED: NITR-65 PO (00:10)
== END 2021-06-15 00:20 | disposition home or self-care (01) ==
LOC: EDUNIT# 21:55 → ER 21:58
DX: N34.2 Other urethritis (principal); F17.210 Nicotine dependence, cigarettes, uncomplicated; Z91.040 Latex allergy status
CPT/HCPCS: 36415; 81000; 84703; 87491; 87591; 87635; 87804; 99283

== ENCOUNTER 2022-01-16 13:50 | Emergency (ER) | payer SELFPAY ==
[~2022-01-16] VITALS: Ht 167.7 cm; Wt 71.7 kg
[~2022-01-16 13:50] MED LIST changes: +NITR-65 PO; +PHEN-640 PO
[2022-01-16 14:22] LABS: BILIRUBIN,URINE NEGATIVE (NEGATIVE); CLARITY,URINE CLEAR; COLOR,URINE YELLOW; GLUCOSE, URINE (UA) NEGATIVE (NEGATIVE); KETONES,URINE NEGATIVE (NEGATIVE); LEUKOCYTE ESTERASE ,URINE NEGATIVE (NEGATIVE); NITRITE,URINE NEGATIVE (NEGATIVE); PH,URINE 6.5 (5-9); PROTEIN,URINE NEGATIVE (NEGATIVE)
[2022-01-16 14:31] LABS: BACTERIA,URINE NEGATIVE /HPF; RBC,URINE RARE /HPF; SQUAMOUS EPITHELIAL CELL,UR 0-2 /HPF; WBC,URINE 0-2 /HPF
[2022-01-16 14:33] LABS: AMPHETAMINE SCREEN, URINE NEGATIVE (NEGATIVE); BARBITURATE SCREEN URINE NEGATIVE (NEGATIVE); BENZODIAZEPINES SCREEN URINE NEGATIVE (NEGATIVE); CANNABINOID SCREEN, URINE NEGATIVE (NEGATIVE); COCAINE SCREEN URINE NEGATIVE (NEGATIVE); METHADONE STAT NEGATIVE (NEGATIVE); OPIATE SCREEN URINE NEGATIVE (NEGATIVE); OXYCODONE STAT NEGATIVE (NEGATIVE); PROPOXYPHENE STAT NEGATIVE (NEGATIVE); TRICYCLIC ANTIDEPRESSANTS SCRE NEGATIVE (NEGATIVE)
[2022-01-16 14:58] LABS: BASOPHILS % (AUTO) 1 % (0-10); EOSINOPHILS # (AUTO) 0.1 10^3/uL (0.0-0.3); EOSINOPHILS % (AUTO) 1 % (0-10); HEMATOCRIT 37 % (35-52); LYMPHOCYTES # (AUTO) 2.6 10^3/uL (1.0-4.0); LYMPHOCYTES % (AUTO) 31 % (12-44); MEAN CORPUSCULAR HEMOGLOBIN 29 pg (25-34); MEAN CORPUSCULAR HGB CONC 33 g/dL (32-36); MEAN CORPUSCULAR VOLUME 89 fL (80-99); MONOCYTES # (AUTO) 0.6 10^3/uL (0.0-1.0); MONOCYTES % (AUTO) 7 % (0-12); NEUTROPHILS # (AUTO) 5.1 10^3/uL (1.8-7.8); NEUTROPHILS % (AUTO) 61 % (42-75); PLATELET COUNT 338 10^3/uL (130-400); WHITE BLOOD COUNT 8.3 10^3/uL (4.3-11.0)
[2022-01-16 15:20] LABS: ALANINE AMINOTRANSFERASE 9 U/L (0-55); ALBUMIN 4.6 GM/DL (3.2-4.5); ALKALINE PHOSPHATASE 94 U/L (40-136); BILIRUBIN,TOTAL 0.3 MG/DL (0.1-1.0); BUN/CREATININE RATIO 8; CALCIUM 9.4 MG/DL (8.5-10.1); CARBON DIOXIDE 25 MMOL/L (21-32); CHLORIDE 105 MMOL/L (98-107); CREATININE SERUM 0.72 MG/DL (0.60-1.30); GFR ESTIMATED 107; GLUCOSE 86 MG/DL (70-105); POTASSIUM 4.1 MMOL/L (3.6-5.0); SODIUM 140 MMOL/L (135-145); TOTAL PROTEIN 7.2 GM/DL (6.4-8.2)
[2022-01-16 15:21] LABS: ACETAMINOPHEN < 10 UG/ML (10-30); SALICYLATE < 0.3 MG/DL (5.0-20.0)
--- NOTE | 2022-01-16 15:33 | ED Psychosocial ---
General Stated Complaint: HOMICIDAL IDEATION Source: patient Exam Limitations: no limitations (GUIDO MONROE MD) History of Present Illness Date Seen by Provider: Jan 16, 2022 Time Seen by Provider: 14:12 Initial Comments This 41-year-old woman presents to the emergency room as escorted by law enforcement for reasons of homicidal ideation. She lives in [place] at an apartment but was visiting a friend here in [place]. She expressed extreme agitation with her neighbors at the apartment. She expressed concern that she "would kill someone if I went back there" referring to her apartment. I asked her to elaborate if she truly felt other individuals lives were in danger if she were to return. She answered affirmatively. When I asked if she had a plan for how to harm others she answered definitively. However, she refused to explain what her plan is. She stated "they made a movie about it". She seems paranoid about what people say to her and about her and implies that there is verbal harassment from the people in her apartment building. She denies any substance abuse. She sees a behavioral health counselor named Adela. Dr. Sheth is her primary care provider. Her history seems to be inconsistent and incongruent. After her initial medical work-up, patient additionally told staff that she was suicidal and asked for a rope. All items were removed from her room. Clothing was removed and she was placed in a gown. She also informed nursing staff that she has been institutionalized so much in her life that she does not know how to live in the outside world. She states she would do almost anything to get readmitted when she feels like she cannot cope because of this. She reports physically feeling fine except for having chronic bilateral hip pain and feeling hungry. (GUIDO MONROE MD) Allergies and Home Medications Allergies Coded Allergies: clindamycin (Unverified Adverse Reaction, Unknown, 10/21/18) latex (Unverified Adverse Reaction, Unknown, 10/21/18) Patient Home Medication List Home Medication List Reviewed: Yes (GUIDO MONROE MD) Albuterol Sulfate (Proair Hfa) 1 Puff Puff, 2 PUFF IH Q4H PRN for SHORTNESS OF BREATH Prescribed by: GUIDO DAVILA on 01/04/19 0146 Azithromycin (Azithromycin) 250 Mg Tablet, 250 MG PO UD Prescribed by: JOSE YOO on 07/28/20 0033 Cephalexin (Keflex) 500 Mg Capsule, 500 MG PO QID Prescribed by: SOCO GAYTAN on 05/27/19 1239 Ciprofloxacin HCl (Ciprofloxacin HCl) 500 Mg Tablet, 500 MG PO BID Prescribed by: JOSE YOO on 05/16/19 205 Ciprofloxacin HCl/Dexameth (Ciprodex Otic Suspension) 7.5 Ml Soln, 4 DROPS OT BID Prescribed by: MELANIE RODRGIUEZ on 11/27/19 1821 Docusate Sodium (Colace) 100 Mg Capsule, 100 MG PO DAILY Prescribed by: SUKHDEEP ALBA on 11/28/18 0544 Metronidazole (Flagyl) 500 Mg Tablet, 500 MG PO BID Prescribed by: MELANIE RODRIGUEZ on 05/29/19 1201 Metronidazole (Flagyl) 500 Mg Tablet, 500 MG PO BID Prescribed by: INDIA ROGEL on 12/09/19 1528 Mupirocin Calcium (Mupirocin) 15 Gm Cream..g., 15 GM TP TID Prescribed by: INDIA ROGEL on 10/24/19 1155 Nitrofurantoin Monohyd/M-Cryst (Macrobid 100 mg Capsule) 100 Mg Capsule, 1 TAB PO BID Prescribed by: MELANIE RODRIGUEZ on 06/15/21 0010 Nystatin (Nystatin) 15 Gm Cream..g., 1 GM TP BID Prescribed by: MELANIE RODRIGUEZ on 05/29/19 1113 Omeprazole (Omeprazole) 40 Mg Capsule.dr, 40 MG PO DAILY Prescribed by: MELANIE RODRIGUEZ on 01/25/19 1757 Omeprazole (Omeprazole) 40 Mg Capsule.dr, 40 MG PO DAILY Prescribed by: MELANIE RODRIGUEZ on 03/09/19 1608 Ondansetron (Ondansetron Odt) 4 Mg Tab.rapdis, 4 MG PO Q6H Prescribed by: SUKHDEEP ALBA on 10/21/18 2205 Ondansetron (Ondansetron Odt) 4 Mg Tab.rapdis, 4 MG PO Q6H PRN for NAUSEA/V OMITING Prescribed by: MELANIE RODRIGUEZ on 01/25/19 175 Ondansetron (Ondansetron Odt) 4 Mg Tab.rapdis, 4 MG PO Q6H PRN for NAUSEA/VOMITING Prescribed by: MELANIE RODRIGUEZ on 03/09/19 1608 Ondansetron (Ondansetron Odt) 4 Mg Tab.rapdis, 4 MG PO Q6H PRN for NAUSEA/VOMITING Prescribed by: INDIA ROGEL on 10/24/19 1155 Ondansetron (Ondansetron Odt) 4 Mg Tab.rapdis, 4 MG PO Q6H PRN for NAUSEA/VOMITING Prescribed by: MELANIE RODRIGUEZ on 11/27/19 1820 Phenazopyridine HCl (Pyridium) 200 Mg Tablet, 1 TAB PO BID PRN for PAIN- BREAKTHROUGH Prescribed by: MELANIE RODRIGUEZ on 06/15/21 0010 Sulfamethoxazole/Trimethoprim (Bactrim Ds Tablet) 1 Each Tablet, 1 EACH PO BID Prescribed by: JOSE YOO on 01/06/19 2144 Sulfamethoxazole/Trimethoprim (Bactrim Ds Tablet) 1 Each Tablet, 1 EACH PO BID Prescribed by: RIYA RIOS on 04/30/19 215 Tramadol HCl (Tramadol HCl) 50 Mg Tablet, 50 MG PO Q6H PRN for PAIN Prescribed by: SUKHDEEP ALBA on 11/28/18 0544 Review of Systems Constitutional: no symptoms reported EENTM: no symptoms reported Respiratory: no symptoms reported Cardiovascular: no symptoms reported Gastrointestinal: see HPI Genitourinary: no symptoms reported : No Musculoskeletal: see HPI Skin: no symptoms reported Psychiatric/Neurological: See HPI (GUIDO MONROE MD) Past Seoyjtf-Qhjbqz-Zkiouy Hx Patient Social History Tobacco Use?: Yes Tobacco type used: Cigarettes Smoking Status: Current Everyday Smoker Use of E-Cig and/or Vaping dev: No Substance use?: No Alcohol Use?: No (GUIDO MONROE MD) Immunizations Up To Date Tetanus Booster (TDap): Less than 5yrs (GUIDO MONROE MD) Seasonal Allergies Seasonal Allergies: No (GUIDO MONROE MD) Past Medical History Surgeries: Yes (C/S X 3) Appendectomy, Section, Coronary Stent, Tubal Ligation Respiratory: Yes Asthma, COPD Cardiac: Yes (Left bundle branch block) Coronary Artery Disease Neurological: Yes (EPILEPSY) Multiple Sclerosis, Neuropathy, Seizure Disorder Genitourinary: No Gastrointestinal: Yes Liver Disease/Jaundice Musculoskeletal: No Endocrine: No HEENT: Yes (Unilateral blindness) Cancer: No Psychosocial: Yes Sleep Difficulties, Anxiety, Schizophrenia, Depression Integumentary: No Blood Disorders: No (GUIDO MONROE MD) Physical Exam Vital Signs - First Documented 01/16/22 14:02 Temp 37.1 Pulse 99 Resp 24 B/P (MAP) 114/57 (76) Pulse Ox 98 O2 Delivery Room Air (MELANIE RODRIGUEZ) Capillary Refill : (GUIDO MONROE MD) Height, Weight, BMI Height: 5'4.00" Weight: 134lbs. 0oz. [id number]; 25.00 BMI Method:Stated General Appearance: WD/WN, other (Agitated, disheveled) HEENT: PERRL/EOMI, normal ENT inspection, other (Very poor dentition) Neck: normal inspection Respiratory: lungs clear, normal breath sounds, no respiratory distress Cardiovascular: regular rate, rhythm, no edema, no murmur Gastrointestinal: normal bowel sounds, non tender, soft Extremities: normal inspection, no pedal edema Neurologic/Psychiatric: welder plasma arc II-XII nml as tested, no motor/sensory deficits, alert, other (Confusing historian) Appearance/Memory: disheveled, impaired insight Behavior/Eye Contact: cooperative, good eye contact, other (Speech somewhat pressured) Thoughts/Hallucinations: no apparent hallucination, other (Expresses both suicidal and homicidal ideation) Skin: normal color, warm/dry (GUIDO MONROE MD) Suicide Risk Suicide Risk Suicide Risk Level / RN Screen: High Low Suicide Risk Level []Suicidal Ideation WITHOUT method, intent, plan or behavior more than a month ago []]Modifiable risk factors and strong protective factors []No reported history of suicidal ideation or behavior []Patient reports/exhibits symptoms consistent with psychosis []Patient reports a plan that would be unrealistic/impossible to complete and intent []Suicide attempt prior to arrival (Indicates at LEAST Low Suicide Risk, consi radha other risk factors) Moderate Suicide Risk Level: []Suicidal ideation with method, WITHOUT plan, intent or behavior in the past month []Multiple risk factors and few protective factors []Patient reports intent to follow through on plan to end life if allowed to leave hospital, and has attempted to elope from the hospital High Suicide Risk Level: [Y] Suicidal ideation with intent or intent with a plan in the past month [] Patient has harmed self or attempted suicide while in the hospital [] Patient has hx of or current Command Auditory hallucinations to harm self or others that they follow without hesitation [Y] Patient refuses to disclose plan, and indicates intent to complete [] Patient reports plan that is possible to accomplish and/or has means to complete Risk factors supporting recommendation: [] Non-compliance with treatment (acute or chronic) [] Patient has access to or owns firearms and/or stockpiled medications [Y] Hx Impulsive behavior [] Pending incarceration or homelessness [] Sexual abuse [] Family history and/or exposure to suicide [] Adverse childhood experiences [] Exposure to violence or negative socio-political cultural, and economic forces [] Current or hx of substance use/abuse [] Chronic physical pain or other acute medical problem (AIDS, COPD, Cancer, etc) [] Perceived burden on family or others [] Patient has attempted to elope [] Unable to answer and/or unable to identify [] Refuses to agree to a safety plan Protective Factors supporting recommendation: [] Identifies reasons for living [] Future plans/goals [] Engaged in work or School [] Good family support network [] Good social support network [] Responsibility to family [] Belief that suicide is immoral, against their scientology beliefs [] High spirituality and involvement in restorationism community [] Fear of or dying due to pain and suffering [] Established outpt psychiatric services [] Unable to answer and/or unable to identify Risk Assessment Tool Score: High (GUIDO MONROE MD) Progress/Results/Core Measures Results/Orders Lab Results Laboratory Tests Test 01/16/22 14:02 01/16/22 14:12 01/16/22 14:44 Range/Units Urine Color YELLOW Urine Clarity CLEAR Urine pH 6.5 5-9 Urine Specific [place] 1.010 L 1.016-1.022 Urine Protein NEGATIVE NEGATIVE Urine Glucose (UA) NEGATIVE NEGATIVE Urine Ketones NEGATIVE NEGATIVE Urine Nitrite NEGATIVE NEGATIVE Urine Bilirubin NEGATIVE NEGATIVE Urine Urobilinogen 0.2 < = 1.0 MG/DL Urine Leukocyte Esterase NEGATIVE NEGATIVE Urine RBC (Auto) NEGATIVE NEGATIVE Urine RBC RARE /HPF Urine WBC 0-2 /HPF Urine Squamous Epithelial Cells 0-2 /HPF Urine Crystals NONE /LPF Urine Bacteria NEGATIVE /HPF Urine Casts NONE /LPF Urine Mucus NEGATIVE /LPF Urine Culture Indicated NO Urine Opiates Screen NEGATIVE NEGATIVE Urine Oxycodone Screen NEGATIVE NEGATIVE Urine Methadone Screen NEGATIVE NEGATIVE Urine Propoxyphene Screen NEGATIVE NEGATIVE Urine Barbiturates Screen NEGATIVE NEGATIVE Ur Tricyclic Antidepressants Screen NEGATIVE NEGATIVE Urine Phencyclidine Screen NEGATIVE NEGATIVE Urine Amphetamines Screen NEGATIVE NEGATIVE Urine Methamphetamines Screen NEGATIVE NEGATIVE Urine Benzodiazepines Screen NEGATIVE NEGATIVE Urine Cocaine Screen NEGATIVE NEGATIVE Urine Cannabinoids Screen NEGATIVE NEGATIVE Serum Test, Qualitative NEGATIVE NEGATIVE White Blood Count 8.3 4.3-11.0 10^3/uL Red Blood Count 4.13 3.80-5.11 10^6/uL Hemoglobin 12.0 11.5-16.0 g/dL Hematocrit 37 35-52 % Mean Corpuscular Volume 89 80-99 fL Mean Corpuscular Hemoglobin 29 25-34 pg Mean Corpuscular Hemoglobin Concent 33 32-36 g/dL Red Cell Distribution Width 15.6 H 10.0-14.5 % Platelet Count 338 130-400 10^3/uL Mean Platelet Volume 9.0 9.0-12.2 fL Immature Granulocyte % (Auto) 0 % Neutrophils (%) (Auto) 61 42-75 % Lymphocytes (%) (Auto) 31 12-44 % Monocytes (%) (Auto) 7 0-12 % Eosinophils (%) (Auto) 1 0-10 % Basophils (%) (Auto) 1 0-10 % Neutrophils # (Auto) 5.1 1.8-7.8 10^3/uL Lymphocytes # (Auto) 2.6 1.0-4.0 10^3/uL Monocytes # (Auto) 0.6 0.0-1.0 10^3/uL Eosinophils # (Auto) 0.1 0.0-0.3 10^3/uL Basophils # (Auto) 0.0 0.0-0.1 10^3/uL Immature Granulocyte # (Auto) 0.0 0.0-0.1 10^3/uL Sodium Level 140 135-145 MMOL/L Potassium Level 4.1 3.6-5.0 MMOL/L Chloride Level 105 98-107 MMOL/L Carbon Dioxide Level 25 21-32 MMOL/L Anion Gap 10 5-14 MMOL/L Blood Urea Nitrogen 6 L 7-18 MG/DL Creatinine 0.72 0.60-1.30 MG/DL Estimat Glomerular Filtration Rate 107 BUN/Creatinine Ratio 8 Glucose Level 86 70-105 MG/DL Calcium Level 9.4 8.5-10.1 MG/DL Corrected Calcium 8.5-10.1 MG/DL Total Bilirubin 0.3 0.1-1.0 MG/DL Aspartate Amino Transf (AST/SGOT) 16 5-34 U/L Alanine Aminotransferase (ALT/SGPT) 9 0-55 U/L Alkaline Phosphatase 94 40-136 U/L Total Protein 7.2 6.4-8.2 GM/DL Albumin 4.6 H 3.2-4.5 GM/DL Salicylates Level < 0.3 L 5.0-20.0 MG/DL Acetaminophen Level < 10 L 10-30 UG/ML Serum Alcohol < 10 <10 MG/DL Influenza Type A (RT-PCR) Not Detected Not Detecte Influenza Type B (RT-PCR) Not Detected Not Detecte SARS-CoV-2 RNA (RT-PCR) Not Detected Not Detecte (MELANIE RODRIGUEZ) Vital Signs/I&O 01/16/22 14:02 Temp 37.1 Pulse 99 Resp 24 B/P (MAP) 114/57 (76) Pulse Ox 98 O2 Delivery Room Air (MELANIE RODRIGUEZ) Progress Progress Note : Time: 15:44 Progress Note Patient has been medically cleared. We are awaiting behavioral health evaluation. (GUIDO MONROE MD) Progress Note : Time: 18:43 Progress Note Assumed care of the patient at shift change. I agree with above documented history and physical exam. She is awaiting screening. She has been having a nagging dry cough. She has a history of asthma as well as GERD and feels like food gets stuck in the back of her throat sometimes when she swallows. She is never had endoscopy. I suspect she might have strictures related to her GERD which is also setting off her asthma. Her lungs are diminished and tight bilaterally without wheezing. Were going to give her some Pepcid, Maalox, and a DuoNeb. She says she wants something for her anxiety so 2 mg p.o. Ativan have been ordered. She has been up to the bathroom several times has been cooperative and calm with nursing staff. Finally we will refer her onto Dr. George general surgery to discuss endoscopy. (MELANIE RODRIGUEZ) Progress Note #1: Time: 07:00 Progress Note I assumed care of the patient at shift change. She had been resting overnight after being medically cleared and screened by mental health over telehealth yesterday afternoon. César Castro from [facility] had staff call and try to do an intake with her over the phone but patient had already had Ativan 2 mg po for her anxiety and by the time the staff called to speak to her she was somnolent and kept falling asleep over the phone. Plan is to have César Castro try to do intake over the phone this am when she is more awake. Will defer any further sedating medication until she can speak with them about inpatient psychiatric placement. Progress Note #2: Time: 09:14 Progress Note [facility] called back after speaking with patient and declined her as admit to their facility. Will contact [facility] to see where else they are looking for admit. Progress Note #3: Time: 14:42 Progress Note Patient was having a coughing fit when she got up to go to the bathroom. she asked earlier for a nicotine patch and that was ordered. When she was having her coughing fit she reports that she usually uses an inhaler at home and asked for breathing treatment. After this had been ordered she went back to her room and continued to talk non- stop with the mental health worker. Then she told the nurses that she has a peanut butter allergy, after she had already eaten peanut butter cookies. She felt like she had throat irritation but continued to speak normally and without distress. Add on a dose of Benadryl 25 mg po in addition to the inhaler with spacer that was previously ordered. Awaiting word from [facility] with [facility] to see if she is able to be admitted there. 1707 Patient requested something for acid reflux so a dose of protonix was ordered. She continues to be cooperative and talking with the mental health sitter from [facility]. Call placed to [facility] but they had no new updates. 2044 Patient requested medicine to help with her nerves and help her sleep like she had gotten the night before. Lorazepam 1 mg po ordered. Check with [facility] but they still had no new updates about [facility] or any other potential hospitals. 18 Jan 2022 at 0930 patient rested overnight. Care passed to [facility], Dr. Alba. (JOSE YOO MD) Departure Communication (Admissions) Patient re-screened in the ED by counselor the decision was to send the patient home to stay with her sister with home safety plan. Patient medically stable at time of departure with instructions to follow-up with correctional case manager valeriano (SUKHDEEP ALBA DO) Impression Primary Impression: Mood disorder Additional Impression: Psychosis Disposition: 01 HOME, SELF-CARE Condition: Stable Departure-Patient Inst. Decision time for Depature: 22:53 (SUKHDEEP ALBA DO) Referrals: CAMILLE SHETH MD (PCP) Primary Care Physician ANAYA GEORGE DO Add. Discharge Instructions: Please follow the instructions of your home safety plan and follow-up with outpatient correctional case manager and counselor. Return to the ED if new or worsening symptoms Copy Copies To 1: ANAYA GEORGE JOSHUA T MD Jan 16, 2022 15:33 MELANIE RODRIGUEZ Jan 16, 2022 18:44 JOSE YOO MD Jan 17, 2022 07:18 SUKHDEEP ALBA DO Jan 18, 2022 22:55
[2022-01-16] MEDS ORDERED: LORazepam 0.5 MG (ATIVAN) TABLET PO STA (18:41)
[2022-01-16] MEDS ORDERED: FAMOTIDINE 20 MG (PEPCID) TABLET PO STA (18:41)
[2022-01-16] MEDS ORDERED: ANTACID SUSP 30 ML UDC (MYLANTA) PO ONE (18:45)
[2022-01-16] MEDS ORDERED: RT-ALBUTEROL/IPRATROPIUM 3 ML (DUONEB) VIAL INH ONE (18:45)
[2022-01-17] MEDS ORDERED: NICOTINE 21 MG (NICODERM) PATCH TD STA (11:52)
[2022-01-17] MEDS ORDERED: diphenhydrAMINE 25 MG TAB (BENADRYL) PO STA (14:36)
[2022-01-17] MEDS ORDERED: RT-ALBUTEROL HFA 8.5 GM INHALER IH ONE (14:39)
[2022-01-17] MEDS: RT-ALBUTEROL HFA 8.5 GM INHALER IH SCH ×2 (14:41→22:16)
[2022-01-17] MEDS ORDERED: PANTOPRAZOLE 40 MG (PROTONIX) TAB PO STA (17:10)
[2022-01-17] MEDS ORDERED: LORazepam 0.5 MG (ATIVAN) TABLET PO STA (20:47)
[2022-01-18] MEDS: RT-ALBUTEROL HFA 8.5 GM INHALER IH SCH ×6 (02:00→22:00)
[2022-01-18] MEDS ORDERED: PANTOPRAZOLE 40 MG (PROTONIX) TAB PO ONE (09:45)
[2022-01-18] MEDS ORDERED: FAMOTIDINE 20 MG (PEPCID) TABLET PO STA (09:47)
[2022-01-18] MEDS ORDERED: ACETAMINOPHEN 500 MG TAB (TYLENOL) PO ONE (17:30)
[2022-01-18] MEDS ORDERED: ACETAMINOPHEN 325 MG TABLET PO ONE (23:15)
[2022-01-19 00:15] VITALS: BP 110/77
== END 2022-01-19 00:15 | disposition home or self-care (01) ==
LOC: EDUNIT# 13:50 → ER FS 13:53
DX: F39 Unspecified mood [affective] disorder (principal); F29 Unspecified psychosis not due to a substance or known physiological condition; F17.210 Nicotine dependence, cigarettes, uncomplicated; Z91.040 Latex allergy status; Z20.822 Contact with and (suspected) exposure to COVID-19; Z28.310 Unvaccinated for COVID-19
CPT/HCPCS: 36415; 80053; 80306; 81000; 84443; 84703; 85025; 87636; 93041; 99284; G0480 ×3; 80320; 80329; 82947; 93005

== ENCOUNTER 2022-04-18 02:53 | Emergency (ER) | payer SELFPAY ==
[~2022-04-18 02:53] MED LIST changes: +ALBU8.5H6 IH; -NYST15CR TP; +NYST15CR35 TP; -RT-ALBUINH IH
[2022-04-18 03:17] LABS: BILIRUBIN,URINE NEGATIVE (NEGATIVE); CLARITY,URINE CLEAR; COLOR,URINE YELLOW; GLUCOSE, URINE (UA) NEGATIVE (NEGATIVE); KETONES,URINE NEGATIVE (NEGATIVE); LEUKOCYTE ESTERASE ,URINE NEGATIVE (NEGATIVE); NITRITE,URINE NEGATIVE (NEGATIVE); PROTEIN,URINE NEGATIVE (NEGATIVE)
[2022-04-18 03:26] LABS: BACTERIA,URINE NEGATIVE /HPF; RBC,URINE 25-50 /HPF
[2022-04-18] MEDS ORDERED: BENZ100C18 PO ×2 (03:54→04:24)
[2022-04-18] MEDS ORDERED: DOXY100T2 PO ×2 (03:54→04:24)
[2022-04-18] MEDS ORDERED: GUAI1TBM19 PO ×2 (03:54→04:24)
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
[2022-04-18 04:10] LABS: AMPHETAMINE SCREEN, URINE NEGATIVE (NEGATIVE); BARBITURATE SCREEN URINE NEGATIVE (NEGATIVE); BENZODIAZEPINES SCREEN URINE NEGATIVE (NEGATIVE); CANNABINOID SCREEN, URINE NEGATIVE (NEGATIVE); COCAINE SCREEN URINE NEGATIVE (NEGATIVE); METHADONE STAT NEGATIVE (NEGATIVE); OPIATE SCREEN URINE NEGATIVE (NEGATIVE); OXYCODONE STAT NEGATIVE (NEGATIVE); PROPOXYPHENE STAT NEGATIVE (NEGATIVE); TRICYCLIC ANTIDEPRESSANTS SCRE NEGATIVE (NEGATIVE)
[2022-04-18 04:25] VITALS: BP 141/74
--- NOTE | 2022-04-18 07:41 | Diagnostic Imaging Report ---
INDICATION: 41-year-old female with cough COMPARISONS: 07/27/2020 FINDINGS: Single view of the chest shows prominent central lung markings with peribronchial cuffing. Cardiac contour is normal. There is some minimal perihilar and bibasilar infiltrates. No confluent consolidations seen. There is no effusion or pneumothorax. There is previous left proximal femur fracture stabilized by sideplate and screws. IMPRESSION: Central reactive airway changes such as bronchitis with some peribronchial cuffing. There is some perihilar and bibasilar atelectatic infiltrates but no confluent consolidations. Dictated by: Dictated on workstation # [id number]
== END 2022-04-18 04:33 | disposition home or self-care (01) ==
LOC: EDUNIT# 02:53 → ER 02:54
DX: J40 Bronchitis, not specified as acute or chronic (principal); S39.012A Strain of muscle, fascia and tendon of lower back, initial encounter; F17.210 Nicotine dependence, cigarettes, uncomplicated; Z91.040 Latex allergy status; Z88.1 Allergy status to other antibiotic agents; Z28.310 Unvaccinated for COVID-19; Z20.822 Contact with and (suspected) exposure to COVID-19; X50.1XXA Overexertion from prolonged static or awkward postures, initial encounter; Y93.39 Activity, other involving climbing, rappelling and jumping off
CPT/HCPCS: 71045; 80306; 81000; 84703; 87636

== ENCOUNTER 2022-05-11 13:40 | Emergency (ER) | payer SELFPAY ==
[~2022-05-11] VITALS: Ht 162 cm; Wt 68.5 kg
[~2022-05-11 13:40] MED LIST changes: +BENZ100C18 PO; +DOXY100T2 PO; +GUAI1TBM19 PO
--- NOTE | 2022-05-11 13:46 | ED Respiratory ---
General Chief Complaint: Chest Pain Stated Complaint: CHEST PAINS | SOB Source: patient Exam Limitations: no limitations History of Present Illness Date Seen by Provider: May 11, 2022 Time Seen by Provider: 13:30 Initial Comments 64-year-old female presents to the emergency department today for cough, shortness of breath. Present for about 3 weeks and she states "I feel like crap." She does endorse a history of chest pain has been going on for 3 years. She has been evaluated cardiology and was recommended to have stents in her heart but she "got up and ran." She states she is still not interested in having stents in her heart. She is mostly concerned about the cough and fatigue. She denies any fevers or chills. Cough is minimally productive. Chest pain is completely unchanged from her baseline history. No unilateral lower extremity pain, swelling. No recent long distance travel or surgeries. She does tell me she has a history of bundle branch block that she "refused to get fixed." Allergies and Home Medications Allergies Coded Allergies: clindamycin (Unverified Adverse Reaction, Unknown, 10/21/18) latex (Unverified Adverse Reaction, Unknown, 10/21/18) Patient Home Medication List Home Medication List Reviewed: Yes Albuterol Sulfate (Ventolin Hfa) 1 Puff Puff, 2 PUFF IH Q4H PRN for SHORTNESS OF BREATH Prescribed by: GUIDO DAVILA on 01/04/19 0146 Albuterol Sulfate (Ventolin Hfa) 90 Mcg Hfa.aer.ad, 2 PUFF INH Q4H Prescribed by: MELINDA DRUMMOND MD on 05/11/22 1438 Azithromycin (Azithromycin) 250 Mg Tablet, 250 MG PO UD Prescribed by: JOSE YOO on 07/28/20 0033 Benzonatate (Tessalon Perles) 100 Mg Capsule, 200 MG PO TID Prescribed by: MARTHA العلي on 04/18/22 0424 Cephalexin (Keflex) 500 Mg Capsule, 500 MG PO QID Prescribed by: SOCO GAYTAN on 05/27/19 1239 Ciprofloxacin HCl (Ciprofloxacin HCl) 500 Mg Tablet, 500 MG PO BID Prescribed by: JOSE YOO on 05/16/192051 Ciprofloxacin HCl/Dexameth (Ciprodex Otic Suspension) 7.5 Ml Soln, 4 DROPS OT BID Prescribed by: MELANIE RODRIGUEZ on 11/27/19 1821 Docusate Sodium (Colace) 100 Mg Capsule, 100 MG PO DAILY Prescribed by: SUKHDEEP MCCULLOUGH on 11/28/18 0544 Doxycycline Hyclate (Doxycycline Hyclate) 100 Mg Tablet, 100 MG PO BID Prescribed by: MARTHA العلي on 04/18/22 0424 Guaifenesin/Dextromethorphan (Mucinex Dm ER 1,200-60 mg Tab) 1,200 Mg-60 Mg Tbmp.12hr, 1 EACH PO BID Prescribed by: MARTHA العلي on 04/18/22 0424 Metronidazole (Flagyl) 500 Mg Tablet, 500 MG PO BID Prescribed by: MELANIE RODRIGUEZ on 05/29/19 1201 Metronidazole (Flagyl) 500 Mg Tablet, 500 MG PO BID Prescribed by: INDIA ROGEL on 12/09/19 1528 Mupirocin Calcium (Mupirocin) 15 Gm Cream..g., 15 GM TP TID Prescribed by: INDIA ROGEL on 10/24/19 1155 Nitrofurantoin Monohyd/M-Cryst (Macrobid 100 mg Capsule) 100 Mg Capsule, 1 TAB PO BID Prescribed by: MELANIE RODRIGUEZ on 06/15/21 0010 Nystatin (Nystatin) 15 Gm Cream..g., 1 GM TP BID Prescribed by: MELANIE RODRIGUEZ on 05/29/19 1113 Omeprazole (Omeprazole) 40 Mg Capsule.dr, 40 MG PO DAILY Prescribed by: MELANIE RODRIGUEZ on 01/25/19 175 Omeprazole (Omeprazole) 40 Mg Capsule.dr, 40 MG PO DAILY Prescribed by: MELANIE RODRIGUEZ on 03/09/19 1608 Ondansetron (Ondansetron Odt) 4 Mg Tab.rapdis, 4 MG PO Q6H Prescribed by: SUKHDEEP MCCULLOUGH on 10/21/18 2205 Ondansetron (Ondansetron Odt) 4 Mg Tab.rapdis, 4 MG PO Q6H PRN for NAUSEA/VOMITING Prescribed by: MELANIE RODRIGUEZ on 01/25/19 175 Ondansetron (Ondansetron Odt) 4 Mg Tab.rapdis, 4 MG PO Q6H PRN for NAUSEA/VOMITING Prescribed by: MELANIE RODRIGUEZ on 03/09/19 1608 Ondansetron (Ondansetron Odt) 4 Mg Tab.rapdis, 4 MG PO Q6H PRN for NAUSEA/VOMITING Prescribed by: INDIA ROGEL on 10/24/19 1155 Ondansetron (Ondansetron Odt) 4 Mg Tab.rapdis, 4 MG PO Q6H PRN for NAUSEA/VOMITING Prescribed by: MELANIE RODRIGUEZ on 11/27/19 1820 Phenazopyridine HCl (Pyridium) 200 Mg Tablet, 1 TAB PO BID PRN for PAIN- BREAKTHROUGH Prescribed by: MELANIE RODRIGUEZ on 06/15/21 0010 Prednisone (Prednisone) 50 Mg Tab, 50 MG PO DAILY Prescribed by: MELINDA DRUMMOND MD on 05/11/22 1438 Sulfamethoxazole/Trimethoprim (Bactrim Ds Tablet) 1 Each Tablet, 1 EACH PO BID Prescribed by: JOSE YOO on 01/06/19 214 Sulfamethoxazole/Trimethoprim (Bactrim Ds Tablet) 1 Each Tablet, 1 EACH PO BID Prescribed by: RIYA RIOS on 04/30/19 215 Tramadol HCl (Tramadol HCl) 50 Mg Tablet, 50 MG PO Q6H PRN for PAIN Prescribed by: SUKHDEEP MCCULLOUGH on 11/28/18 0544 Review of Systems Review of Systems Constitutional: malaise EENTM: no symptoms reported Respiratory: cough, short of breath Cardiovascular: no symptoms reported Gastrointestinal: no symptoms reported Genitourinary: no symptoms reported Musculoskeletal: no symptoms reported Skin: no symptoms reported Psychiatric/Neurological: No Symptoms Reported Hematologic/Lymphatic: No Symptoms Reported Immunological/Allergic: no symptoms reported Past Ilzvrgr-Chpdeg-Wecbef Hx Patient Social History Tobacco Use?: Yes Use of E-Cig and/or Vaping dev: No Substance use?: Yes Substance type: Amphetamines Alcohol Use?: No Immunizations Up To Date Tetanus Booster (TDap): Less than 5yrs Seasonal Allergies Seasonal Allergies: No Past Medical History Surgeries: Yes (C/S X 3) Appendectomy, Section, Coronary Stent, Tubal Ligation Respiratory: Yes Asthma, COPD Cardiac: Yes (Left bundle branch block) Coronary Artery Disease Neurological: Yes (EPILEPSY) Multiple Sclerosis, Neuropathy, Seizure Disorder Genitourinary: No Gastrointestinal: Yes Liver Disease/Jaundice Musculoskeletal: No Endocrine: No HEENT: Yes (Unilateral blindness) Cancer: No Psychosocial: Yes (POLYSUBSTANCE ABUSE) Sleep Difficulties, Anxiety, Schizophrenia, Depression Integumentary: No Blood Disorders: No Family Medical History Reviewed Nursing Family Hx No Pertinent Family Hx Physical Exam Vital Signs - First Documented 05/11/22 13:46 Temp 36.6 Pulse 91 Resp 20 B/P (MAP) 119/75 (90) Pulse Ox 98 O2 Delivery Room Air Capillary Refill : Height: 5'4.00" Weight: 134lbs. 0oz. 60.989213cb; 25.00 BMI Method:Stated General Appearance: WD/WN, no apparent distress HEENT: normal ENT inspection, pharynx normal Neck: non-tender, supple, normal inspection Respiratory: chest non-tender, normal breath sounds, no respiratory distress, other (Mild expiratory wheezing bilaterally) Cardiovascular: regular rate, rhythm, no murmur Gastrointestinal: normal bowel sounds, non tender, soft, no organomegaly Extremities: normal range of motion, normal inspection Neurologic/Psychiatric: alert, normal mood/affect, oriented x 3 Skin: normal color, warm/dry Lymphatic: no adenopathy Progress/Results/Core Measures Suspected Sepsis SIRS Temperature: Pulse: Respiratory Rate: Laboratory Tests 05/11/22 13:52: White Blood Count 7.0 Blood Pressure / Mean: Laboratory Tests 05/11/22 13:52: Creatinine 0.70, Platelet Count 378, Total Bilirubin 0.3 Results/Orders Lab Results Laboratory Tests Test 05/11/22 13:52 Range/Units White Blood Count 7.0 4.3-11.0 10^3/uL Red Blood Count 3.79 L 3.80-5.11 10^6/uL Hemoglobin 11.1 L 11.5-16.0 g/dL Hematocrit 35 35-52 % Mean Corpuscular Volume 92 80-99 fL Mean Corpuscular Hemoglobin 29 25-34 pg Mean Corpuscular Hemoglobin Concent 32 32-36 g/dL Red Cell Distribution Width 16.0 H 10.0-14.5 % Platelet Count 378 130-400 10^3/uL Mean Platelet Volume 9.5 9.0-12.2 fL Immature Granulocyte % (Auto) 0 % Neutrophils (%) (Auto) 55 42-75 % Lymphocytes (%) (Auto) 34 12-44 % Monocytes (%) (Auto) 9 0-12 % Eosinophils (%) (Auto) 1 0-10 % Basophils (%) (Auto) 1 0-10 % Neutrophils # (Auto) 3.8 1.8-7.8 10^3/uL Lymphocytes # (Auto) 2.4 1.0-4.0 10^3/uL Monocytes # (Auto) 0.6 0.0-1.0 10^3/uL Eosinophils # (Auto) 0.1 0.0-0.3 10^3/uL Basophils # (Auto) 0.1 0.0-0.1 10^3/uL Immature Granulocyte # (Auto) 0.0 0.0-0.1 10^3/uL Sodium Level 137 135-145 MMOL/L Potassium Level 4.0 3.6-5.0 MMOL/L Chloride Level 104 98-107 MMOL/L Carbon Dioxide Level 26 21-32 MMOL/L Anion Gap 7 5-14 MMOL/L Blood Urea Nitrogen 13 7-18 MG/DL Creatinine 0.70 0.60-1.30 MG/DL Estimat Glomerular Filtration Rate 111 BUN/Creatinine Ratio 19 Glucose Level 72 70-105 MG/DL Calcium Level 9.2 8.5-10.1 MG/DL Corrected Calcium 9.0 8.5-10.1 MG/DL Total Bilirubin 0.3 0.1-1.0 MG/DL Aspartate Amino Transf (AST/SGOT) 20 5-34 U/L Alanine Aminotransferase (ALT/SGPT) 22 0-55 U/L Alkaline Phosphatase 64 40-136 U/L Troponin I < 0.028 <0.028 NG/ML Total Protein 6.6 6.4-8.2 GM/DL Albumin 4.2 3.2-4.5 GM/DL My Orders Orders - BHANUMELINDA Martin DO Troponin I Caroline (05/11/22 13:44) Chest 1 View, Ap/Pa Only (05/11/22 13:44) Ekg Tracing (05/11/22 13:44) Cbc With Automated Diff (05/11/22 13:44) Comprehensive Metabolic Panel (05/11/22 13:44) Vital Signs/I&O 05/11/22 13:46 Temp 36.6 Pulse 91 Resp 20 B/P (MAP) 119/75 (90) Pulse Ox 98 O2 Delivery Room Air Capillary Refill : ECG EKG : Comment Sinus rhythm with a rate of 70 bpm. Normal intervals. Normal axis. Left bundle branch block. No ST or T wave abnormalities. No ectopy. No STEMI. Departure Communication (Admissions) Patient is hemodynamically stable, nontoxic she is in no respiratory distress. She has some slight wheezing that is resolved with breathing treatment. She has a normal chest x-ray is any changes associated with COPD. No evidence for infiltrate to require antibiotics. Think this is likely an exacerbation of her chronic bronchitis, emphysema. He is given steroids, inhalers and discharged home in stable condition. Regarding her chest pain, this is been going on for 3 years. She has declined stenting in the past. Troponin is negative. Her EKG is nonischemic. Advised her to follow-up with her primary doctor should she change her mind on stenting or any treatment recommendations. She is discharged in stable condition given strict return cautions. Questions were sought and answered. Impression Primary Impression: Chronic bronchitis Qualified Codes: J41.0 - Simple chronic bronchitis Additional Impression: Chronic chest pain Disposition: HOME, SELF-CARE Condition: Stable Departure-Patient Inst. Referrals: CAMILLE SHETH MD (PCP/Family) Primary Care Physician Patient Instructions: Chronic Bronchitis, Chest Pain (DC) Add. Discharge Instructions: Your chest pain appears to be chronic. If you like this discuss further follow- up given to primary doctor for further treatment recommendations. You stated you have declined stenting in the past. There is no indication of an emergent condition at this time. Regarding her shortness of breath and cough, I think this is from your chronic bronchitis. Continue steroid medicine and an inhaler. Use the steroid daily until it is gone. Use the inhaler as needed. Return to the emergency department for any severe concerns. Follow-up with your family doctor for any nonemergent needs. All discharge instructions reviewed with patient and/or family. Voiced understanding. Scripts Prednisone (Prednisone) 50 Mg Tab 50 MG PO DAILY for 5 Days, #5 TAB Prov: MELINDA DRUMMOND DO 05/11/22 Albuterol Sulfate (Ventolin Hfa) 90 Mcg Hfa.aer.ad 2 PUFF INH Q4H for Wheezing for 30 Days, #1 EA 1 PUFF = 90 MCG Prov: MELINDA DRUMMOND DO 05/11/22 MELINDA DRUMMOND DO May 11, 2022 13:46
[2022-05-11 13:55] LABS: BASOPHILS # (AUTO) 0.1 10^3/uL (0.0-0.1); BASOPHILS % (AUTO) 1 % (0-10); EOSINOPHILS # (AUTO) 0.1 10^3/uL (0.0-0.3); EOSINOPHILS % (AUTO) 1 % (0-10); HEMATOCRIT 35 % (35-52); HEMOGLOBIN 11.1 g/dL (11.5-16.0); LYMPHOCYTES # (AUTO) 2.4 10^3/uL (1.0-4.0); LYMPHOCYTES % (AUTO) 34 % (12-44); MEAN CORPUSCULAR HEMOGLOBIN 29 pg (25-34); MEAN CORPUSCULAR HGB CONC 32 g/dL (32-36); MEAN CORPUSCULAR VOLUME 92 fL (80-99); MEAN PLATELET VOLUME 9.5 fL (9.0-12.2); MONOCYTES # (AUTO) 0.6 10^3/uL (0.0-1.0); MONOCYTES % (AUTO) 9 % (0-12); NEUTROPHILS # (AUTO) 3.8 10^3/uL (1.8-7.8); NEUTROPHILS % (AUTO) 55 % (42-75); PLATELET COUNT 378 10^3/uL (130-400)
--- NOTE | 2022-05-11 13:59 | Diagnostic Imaging Report ---
INDICATION: Cough. COMPARISON: 04/18/2022. FINDINGS: The lungs appear clear without focal airspace opacities or consolidation. There are no findings of an effusion. There is no evidence of a pneumothorax. Heart size and mediastinal contours appear appropriate. Pulmonary vascularity appears within normal limits. There is no acute or suspicious osseous abnormality demonstrated. Prior operative changes of left humerus ORIF noted. There are surgical clips in the left axilla. IMPRESSION: No radiographic evidence of an acute cardiopulmonary process. Dictated by: Dictated on workstation # [id number]
[2022-05-11 14:17] LABS: ALANINE AMINOTRANSFERASE 22 U/L (0-55); ALBUMIN 4.2 GM/DL (3.2-4.5); ALKALINE PHOSPHATASE 64 U/L (40-136); BILIRUBIN,TOTAL 0.3 MG/DL (0.1-1.0); BUN/CREATININE RATIO 19; CALCIUM 9.2 MG/DL (8.5-10.1); CARBON DIOXIDE 26 MMOL/L (21-32); CHLORIDE 104 MMOL/L (98-107); GFR ESTIMATED 111; GLUCOSE 72 MG/DL (70-105); SODIUM 137 MMOL/L (135-145); TOTAL PROTEIN 6.6 GM/DL (6.4-8.2)
[2022-05-11] MEDS ORDERED: PRD50T PO (14:38)
[2022-05-11] MEDS ORDERED: ALBU8.5H6 INH (14:38)
[2022-05-11 14:55] VITALS: BP 96/69
== END 2022-05-11 14:52 | disposition home or self-care (01) ==
LOC: EDUNIT# 13:40 → ER 13:41
DX: J44.9 Chronic obstructive pulmonary disease, unspecified (principal); G89.29 Other chronic pain; Z91.040 Latex allergy status
CPT/HCPCS: 36415; 71045; 80053; 84484; 85025; 93005

== ENCOUNTER 2022-10-05 10:42 | Emergency (ER) | payer MEDICAID, OTHER ==
[~2022-10-05] VITALS: Ht 160 cm; Wt 64.9 kg
[~2022-10-05 10:42] MED LIST changes: +ALBU8.5H6 INH; +PRD50T PO
[2022-10-05] MEDS ORDERED: LACTATED RINGERS 1,000 ML IV ONE (11:15)
[2022-10-05 11:16] LABS: BILIRUBIN,URINE NEGATIVE (NEGATIVE); CLARITY,URINE SL CLOUDY; COLOR,URINE YELLOW; GLUCOSE, URINE (UA) NEGATIVE (NEGATIVE); KETONES,URINE NEGATIVE (NEGATIVE); LEUKOCYTE ESTERASE ,URINE NEGATIVE (NEGATIVE); NITRITE,URINE NEGATIVE (NEGATIVE); PH,URINE 5.5 (5-9); PROTEIN,URINE NEGATIVE (NEGATIVE)
[2022-10-05 11:17] LABS: BASOPHILS # (AUTO) 0.1 10^3/uL (0.0-0.1); BASOPHILS % (AUTO) 1 % (0-10); EOSINOPHILS # (AUTO) 0.1 10^3/uL (0.0-0.3); EOSINOPHILS % (AUTO) 2 % (0-10); HEMATOCRIT 35 % (35-52); HEMOGLOBIN 11.2 g/dL (11.5-16.0); LYMPHOCYTES # (AUTO) 2.5 10^3/uL (1.0-4.0); LYMPHOCYTES % (AUTO) 32 % (12-44); MEAN CORPUSCULAR HEMOGLOBIN 30 pg (25-34); MEAN CORPUSCULAR HGB CONC 32 g/dL (32-36); MEAN CORPUSCULAR VOLUME 94 fL (80-99); MEAN PLATELET VOLUME 9.9 fL (9.0-12.2); MONOCYTES # (AUTO) 0.6 10^3/uL (0.0-1.0); MONOCYTES % (AUTO) 8 % (0-12); NEUTROPHILS # (AUTO) 4.5 10^3/uL (1.8-7.8); NEUTROPHILS % (AUTO) 58 % (42-75); PLATELET COUNT 323 10^3/uL (130-400); WHITE BLOOD COUNT 7.8 10^3/uL (4.3-11.0)
[2022-10-05 11:26] LABS: BACTERIA,URINE LARGE /HPF; WBC,URINE 0-2 /HPF
[2022-10-05 11:27] LABS: URINE OTHER CLUE CELLS /HPF
--- NOTE | 2022-10-05 11:31 | Diagnostic Imaging Report ---
EXAMINATION: Chest radiograph, portable AP view. DATE: 10/05/2022 11:19 AM INDICATION: 42-year-old female, cough and dizziness. COMPARISON: May 11, 2022. FINDINGS: Heart size and mediastinal contours are unchanged. There is no identified pneumothorax. There is no large pleural effusion. There is no identified focal airspace consolidation. There is sideplate and screw fixation hardware along the left proximal humerus. There are surgical clips in the left axilla. IMPRESSION: 1. No identified acute cardiopulmonary abnormality. Dictated by: Dictated on workstation # [id number]
[2022-10-05 11:32] LABS: AMPHETAMINE SCREEN, URINE NEGATIVE (NEGATIVE); BARBITURATE SCREEN URINE NEGATIVE (NEGATIVE); BENZODIAZEPINES SCREEN URINE NEGATIVE (NEGATIVE); CANNABINOID SCREEN, URINE NEGATIVE (NEGATIVE); COCAINE SCREEN URINE NEGATIVE (NEGATIVE); METHADONE STAT NEGATIVE (NEGATIVE); OPIATE SCREEN URINE NEGATIVE (NEGATIVE); OXYCODONE STAT NEGATIVE (NEGATIVE); PROPOXYPHENE STAT NEGATIVE (NEGATIVE); TRICYCLIC ANTIDEPRESSANTS SCRE POSITIVE (NEGATIVE)
--- NOTE | 2022-10-05 11:36 | ED General ---
General Chief Complaint: General Problems/Pain Stated Complaint: DIZZINESS; LOW GLUCOSE Nursing Triage Note: PT AMBULATE TO ROOM FS02 WITHOUT DIFFICULTY WITH C/O HYPOGLYCEMIA X3-4 WEEKS. PT STATES "I THINK MY HYOGLYCEMIA IS ACTING UP AGAIN". PT REPORTS DIZZYNESS AND NAUSEA X3-4 WEEKS, COUGH X1-2 WEEKS. 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 PT BLOOD GLUCOSE OF 93 UPON ARRIVAL. PT STATES SHE HAS NOT CHECKED HER BLOOD GLUCOSE LEVEL AT HOME. Source of Information: Patient, Old Records Exam Limitations: No Limitations History of Present Illness Date Seen by Provider: October 05, 2022 Time Seen by Provider: 10:55 Initial Comments This 42-year-old woman presents to the emergency room with primary complaint of lightheadedness. She thinks her blood sugar may be low as she has experienced this problem in the past. Symptoms have been present intermittently for 3 to 4 weeks. She also reports nausea without vomiting and a cough that has been present for 1 to 2 weeks. She has recent nasal drainage. She denies any fever. She is a fairly heavy smoker and occasionally drinks alcohol. She denies any recent drug use. She is uncertain about status. Systolic blood pressures in the 90s during assessment. Patient appears to be hypersensitive to touch on exam. Numerous skin sores are noted. Fingerstick blood sugar was 93 during assessment. Allergies and Home Medications Allergies Coded Allergies: clindamycin (Unverified Adverse Reaction, Unknown, 10/21/18) latex (Unverified Adverse Reaction, Unknown, 10/21/18) Patient Home Medication List Home Medication List Reviewed: Yes Albuterol Sulfate (Ventolin Hfa) 1 Puff Puff, 2 PUFF IH Q4H PRN for SHORTNESS OF BREATH Prescribed by: GUIDO DAVILA on 01/04/19 0146 Albuterol Sulfate (Ventolin Hfa) 90 Mcg Hfa.aer.ad, 2 PUFF INH Q4H Prescribed by: MELINDA DRUMMOND MD on 05/11/22 1438 Azithromycin (Azithromycin) 250 Mg Tablet, 250 MG PO UD Prescribed by: JOSE YOO on 07/28/20 0033 Benzonatate (Tessalon Perles) 100 Mg Capsule, 200 MG PO TID Prescribed by: MARTHA العلي on 04/18/22 0424 Cephalexin (Keflex) 500 Mg Capsule, 500 MG PO QID Prescribed by: SOCO GAYTAN on 05/27/19 1239 Ciprofloxacin HCl (Ciprofloxacin HCl) 500 Mg Tablet, 500 MG PO BID Prescribed by: JOSE YOO on 05/16/192051 Ciprofloxacin HCl/Dexameth (Ciprodex Otic Suspension) 7.5 Ml Soln, 4 DROPS OT BID Prescribed by: MELANIE RODRIGUEZ on 11/27/19 1821 Docusate Sodium (Colace) 100 Mg Capsule, 100 MG PO DAILY Prescribed by: SUKHDEEP MCCULLOUGH on 11/28/18 0544 Doxycycline Hyclate (Doxycycline Hyclate) 100 Mg Tablet, 100 MG PO BID Prescribed by: MARTHA العلي on 04/18/22 042 Guaifenesin/Dextromethorphan (Mucinex Dm ER 1,200-60 mg Tab) 1,200 Mg-60 Mg Tbmp.12hr, 1 EACH PO BID Prescribed by: MARTHA العلي on 04/18/22 042 Metronidazole (Flagyl) 500 Mg Tablet, 500 MG PO BID Prescribed by: MELANIE RODRIGUEZ on 05/29/19 1201 Metronidazole (Flagyl) 500 Mg Tablet, 500 MG PO BID Prescribed by: INDIA ROGEL on 12/09/19 1528 Mupirocin Calcium (Mupirocin) 15 Gm Cream..g., 15 GM TP TID Prescribed by: INDIA ROGEL on 10/24/19 1155 Nitrofurantoin Monohyd/M-Cryst (Macrobid 100 mg Capsule) 100 Mg Capsule, 1 TAB PO BID Prescribed by: MELANIE RODRIGUEZ on 06/15/21 0010 Nystatin (Nystatin) 15 Gm Cream..g., 1 GM TP BID Prescribed by: MELANIE RODRIGUEZ on 05/29/19 1113 Omeprazole (Omeprazole) 40 Mg Capsule.dr, 40 MG PO DAILY Prescribed by: MELANIE RODRIGUEZ on 01/25/19 1757 Omeprazole (Omeprazole) 40 Mg Capsule.dr, 40 MG PO DAILY Prescribed by: MELANIE RODRIGUEZ on 03/09/19 1608 Ondansetron (Ondansetron Odt) 4 Mg Tab.rapdis, 4 MG PO Q6H Prescribed by: SUKHDEEP MCCULLOUGH on 10/21/18 2205 Ondansetron (Ondansetron Odt) 4 Mg Tab.rapdis, 4 MG PO Q6H PRN for NAUSEA/VOMITING Prescribed by: MELANIE RODRIGUEZ on 01/25/19 1757 Ondansetron (Ondansetron Odt) 4 Mg Tab.rapdis, 4 MG PO Q6H PRN for NAUSEA/VO MITING Prescribed by: MELANIE RODRIGUEZ on 03/09/19 1608 Ondansetron (Ondansetron Odt) 4 Mg Tab.rapdis, 4 MG PO Q6H PRN for NAUSEA/VOMITING Prescribed by: INDIA ROGEL on 10/24/19 1155 Ondansetron (Ondansetron Odt) 4 Mg Tab.rapdis, 4 MG PO Q6H PRN for NAUSEA/VOMITING Prescribed by: MELANIE RODRIGUEZ on 11/27/19 1820 Phenazopyridine HCl (Pyridium) 200 Mg Tablet, 1 TAB PO BID PRN for PAIN- BREAKTHROUGH Prescribed by: MELANIE RODRIGUEZ on 06/15/21 0010 Prednisone (Prednisone) 50 Mg Tab, 50 MG PO DAILY Prescribed by: MELINDA DRUMMOND MD on 05/11/22 1438 Sulfamethoxazole/Trimethoprim (Bactrim Ds Tablet) 1 Each Tablet, 1 EACH PO BID Prescribed by: JOSE YOO on 01/06/19 214 Sulfamethoxazole/Trimethoprim (Bactrim Ds Tablet) 1 Each Tablet, 1 EACH PO BID Prescribed by: RIYA RIOS on 04/30/19 215 Tramadol HCl (Tramadol HCl) 50 Mg Tablet, 50 MG PO Q6H PRN for PAIN Prescribed by: SUKHDEEP MCCULLOUGH on 11/28/18 0544 Review of Systems Review of Systems Constitutional: no symptoms reported EENTM: see HPI Respiratory: see HPI Cardiovascular: see HPI Gastrointestinal: see HPI Genitourinary: no symptoms reported : No Musculoskeletal: see HPI Skin: see HPI, other Psychiatric/Neurological: No Symptoms Reported Hematologic/Lymphatic: No Symptoms Reported Immunological/Allergic: no symptoms reported Past Rivypsz-Nixpxy-Mccekl Hx Patient Social History Tobacco Use?: Yes Tobacco type used: Cigarettes Smoking Status: Heavy Tobacco Smoker Smokeless Tobacco Frequency: Never a User Use of E-Cig and/or Vaping dev: No Use of E-Cig and/or Vaping Macho: Never a User Alcohol Use?: Yes Alcohol Frequency: Several times a month Pt feels they are or have been: No Immunizations Up To Date Tetanus Booster (TDap): Less than 5yrs Seasonal Allergies Seasonal Allergies: No Past Medical History Surgery/Hospitalization HX: STATES HAVING A BBB AND OTHER HEART ISSUES THAT SHE WAS TOLD SHE NEEDED TO FOLLOW UP WITH BUT SHE REFUSED Surgeries: Yes (C/S X 3) Appendectomy, Section, Coronary Stent, Orthopedic (ORIF left humerus), Tubal Ligation Respiratory: Yes Asthma, COPD Cardiac: Yes (Left bundle branch block) Coronary Artery Disease Neurological: Yes (EPILEPSY) Multiple Sclerosis, Neuropathy, Seizure Disorder Genitourinary: No Gastrointestinal: Yes Liver Disease/Jaundice Musculoskeletal: No Endocrine: No HEENT: Yes (Unilateral blindness) Cancer: No Psychosocial: Yes (POLYSUBSTANCE ABUSE) Sleep Difficulties, Anxiety, Schizophrenia, Depression Integumentary: No 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 0oz. [id number]; 25.00 BMI Method:Stated General Appearance: No Apparent Distress, WD/WN HEENT: PERRL/EOMI, TMs Normal, Pharynx Normal, Other (Extensive dental decay) Neck: Normal Inspection; No JVD Respiratory: Lungs Clear, No Accessory Muscle Use, No Respiratory Distress, Decreased Breath Sounds (Diminished in the bases) Cardiovascular: Regular Rate, Rhythm, No Murmur, Other (Sinus rhythm on unix administrator by my interpretation) Gastrointestinal: Soft, Tenderness (Epigastrium) Extremity: Normal Inspection, No Pedal Edema Neurologic/Psychiatric: Alert, Oriented x3, No Motor/Sensory Deficits, Normal Mood/Affect Skin: Warm/Dry, Other (Numerous skin sores) Progress/Results/Core Measures Suspected Sepsis SIRS Temperature: Pulse: 116 Respiratory Rate: 18 Laboratory Tests 10/05/22 11:01: White Blood Count 7.8 Blood Pressure 96 /72 Mean: 80 Laboratory Tests 10/05/22 11:01: Creatinine 0.69, Platelet Count 323, Total Bilirubin 0.2 Results/Orders Lab Results Laboratory Tests Test 10/05/22 10:51 10/05/22 11:00 10/05/22 11:01 Range/Units Glucometer 93 70-110 MG/DL Urine Color YELLOW Urine Clarity SL CLOUDY Urine pH 5.5 5-9 Urine Specific [place] >=1.030 1.016-1.022 Urine Protein NEGATIVE NEGATIVE Urine Glucose (UA) NEGATIVE NEGATIVE Urine Ketones NEGATIVE NEGATIVE Urine Nitrite NEGATIVE NEGATIVE Urine Bilirubin NEGATIVE NEGATIVE Urine Urobilinogen 0.2 < = 1.0 MG/DL Urine Leukocyte Esterase NEGATIVE NEGATIVE Urine RBC (Auto) 2+ H NEGATIVE Urine RBC NONE /HPF Urine WBC 0-2 /HPF Urine Squamous Epithelial Cells 10-25 H /HPF Urine Crystals NONE /LPF Urine Bacteria LARGE H /HPF Urine Casts NONE /LPF Urine Mucus SMALL H /LPF Urine Other CLUE CELLS /HPF Urine Culture Indicated NO Urine Opiates Screen NEGATIVE NEGATIVE Urine Oxycodone Screen NEGATIVE NEGATIVE Urine Methadone Screen NEGATIVE NEGATIVE Urine Propoxyphene Screen NEGATIVE NEGATIVE Urine Barbiturates Screen NEGATIVE NEGATIVE Ur Tricyclic Antidepressants Screen POSITIVE H NEGATIVE Urine Phencyclidine Screen NEGATIVE NEGATIVE Urine Amphetamines Screen NEGATIVE NEGATIVE Urine Methamphetamines Screen NEGATIVE NEGATIVE Urine Benzodiazepines Screen NEGATIVE NEGATIVE Urine Cocaine Screen NEGATIVE NEGATIVE Urine Cannabinoids Screen NEGATIVE NEGATIVE White Blood Count 7.8 4.3-11.0 10^3/uL Red Blood Count 3.72 L 3.80-5.11 10^6/uL Hemoglobin 11.2 L 11.5-16.0 g/dL Hematocrit 35 35-52 % Mean Corpuscular Volume 94 80-99 fL Mean Corpuscular Hemoglobin 30 25-34 pg Mean Corpuscular Hemoglobin Concent 32 32-36 g/dL Red Cell Distribution Width 16.0 H 10.0-14.5 % Platelet Count 323 130-400 10^3/uL Mean Platelet Volume 9.9 9.0-12.2 fL Immature Granulocyte % (Auto) 0 % Neutrophils (%) (Auto) 58 42-75 % Lymphocytes (%) (Auto) 32 12-44 % Monocytes (%) (Auto) 8 0-12 % Eosinophils (%) (Auto) 2 0-10 % Basophils (%) (Auto) 1 0-10 % Neutrophils # (Auto) 4.5 1.8-7.8 10^3/uL Lymphocytes # (Auto) 2.5 1.0-4.0 10^3/uL Monocytes # (Auto) 0.6 0.0-1.0 10^3/uL Eosinophils # (Auto) 0.1 0.0-0.3 10^3/uL Basophils # (Auto) 0.1 0.0-0.1 10^3/uL Immature Granulocyte # (Auto) 0.0 0.0-0.1 10^3/uL Sodium Level 139 135-145 MMOL/L Potassium Level 4.4 3.6-5.0 MMOL/L Chloride Level 106 98-107 MMOL/L Carbon Dioxide Level 24 21-32 MMOL/L Anion Gap 9 5-14 MMOL/L Blood Urea Nitrogen 12 7-18 MG/DL Creatinine 0.69 0.60-1.30 MG/DL Estimat Glomerular Filtration Rate 110 BUN/Creatinine Ratio 17 Glucose Level 87 70-105 MG/DL Calcium Level 8.8 8.5-10.1 MG/DL Corrected Calcium 8.6 8.5-10.1 MG/DL Magnesium Level 2.1 1.6-2.4 MG/DL Total Bilirubin 0.2 0.1-1.0 MG/DL Aspartate Amino Transf (AST/SGOT) 15 5-34 U/L Alanine Aminotransferase (ALT/SGPT) 7 0-55 U/L Alkaline Phosphatase 72 40-136 U/L Total Protein 6.7 6.4-8.2 GM/DL Albumin 4.2 3.2-4.5 GM/DL Serum Test, Qualitative NEGATIVE NEGATIVE Serum Alcohol < 10 <10 MG/DL My Orders Orders - GUIDO MONROE MD Alcohol (10/05/22 11:02) Cbc With Automated Diff (10/05/22 11:02) Comprehensive Metabolic Panel (10/05/22 11:02) Drug Screen Stat (Urine) (10/05/22 11:02) Hcg,Qualitative Serum (10/05/22 11:02) Magnesium (10/05/22 11:02) Ua Culture If Indicated (10/05/22 11:02) Accucheck Stat ONCE (10/05/22 11:02) Ed Iv/Invasive Line Start (10/05/22 11:02) Lactated Ringers (Lr 1000 Ml Iv Solution (10/05/22 11:15) Chest 1 View Ap/Pa Only (10/05/22 11:02) Medications Given in ED Current Medications Medications Dose Ordered Sig/Anabel Route Start Time Stop Time Status Last Admin Dose Admin Lactated Ringer's 1,000 ml @ 0 mls/hr Q0M ONCE IV 10/05/22 11:15 10/05/22 11:16 DC 10/05/22 11:18 1,000 MLS/HR Vital Signs/I&O 10/05/22 10/05/22 10:49 10:49 Temp 36.3 Pulse 116 Resp 18 B/P (MAP) 96/72 (80) O2 Delivery Room Air Room Air Capillary Refill : Less Than 3 Seconds Blood Pressure Mean: 80 Point of Care Testing Finger Stick Blood Glucose: 96 Blood Glucose Action Taken: Doctor aware. No orders. Progress Note #1: Time: 11:37 Progress Note Patient was interviewed and examined. Because blood pressure is borderline, IV fluids are infusing. Labs are pending. Chest x-ray was viewed by me and was unremarkable by my interpretation. Radiologist's report as below was reviewed. Progress Note #2: Time: 12:06 Progress Note Labs were reviewed and interpreted in their entirety. CBC, CMP, magnesium, urinalysis, serum test, and toxicology screen were all relatively unremarkable. Specific gravity was high on the urine which may suggest some hypovolemia. Patient does feel significantly improved after a liter of IV fluid. From an emergency room perspective, I have no major concerns about her being discharged. She is to follow-up with her primary care provider. Diagnostic Imaging Diagonstic Imaging: Xray Plain Films/CT/US/NM/MRI: chest Comments Chest x-ray was reviewed by me and report reviewed. See report below: NAME: PETAR PASTOR [facility] REC#: [id number] PT STATUS: REG ER : 1980 PHYSICIAN: GUIDO MONROE MD ADMIT DATE: 10/05/22/ER FS Draft Date of Exam:10/05/22 CHEST 1 VIEW AP/PA ONLY EXAMINATION: Chest radiograph, portable AP view. DATE: 10/05/2022 11:19 AM INDICATION: 42-year-old female, cough and dizziness. COMPARISON: May 11, 2022. FINDINGS: Heart size and mediastinal contours are unchanged. There is no identified pneumothorax. There is no large pleural effusion. There is no identified focal airspace consolidation. There is sideplate and screw fixation hardware along the left proximal humerus. There are surgical clips in the left axilla. IMPRESSION: 1. No identified acute cardiopulmonary abnormality. Dictated on workstation # [id number] Dict: 10/05/22 1127 Trans: 10/05/22 1130 [facility] [id number] Interpreted by: DAMIAN NJ MD Departure Impression Primary Impression: Lightheadedness Additional Impressions: Cough Qualified Codes: R05.1 - Acute cough Hypovolemia Disposition: HOME, SELF-CARE Condition: Improved Departure-Patient Inst. Decision time for Depature: 12:08 Referrals: CAMILLE SHETH MD (PCP/Family) Primary Care Physician Patient Instructions: Cough, Adult (DC) Add. Discharge Instructions: Increase your intake of clear liquids to stay well-hydrated. Reduce your smoking and work toward quitting. Follow-up with your primary care provider in the near future to discuss your symptoms further. Return to care if you have worsening symptoms despite increasing hydration. All discharge instructions reviewed with patient and/or family. Voiced understanding. Copy Copies To 1: CAMILLE SHETH MD, JOSHUA T MD October 05, 2022 11:36
[2022-10-05 11:46] LABS: CARBON DIOXIDE 24 MMOL/L (21-32); CHLORIDE 106 MMOL/L (98-107); POTASSIUM 4.4 MMOL/L (3.6-5.0); SODIUM 139 MMOL/L (135-145)
[2022-10-05 11:47] LABS: ALANINE AMINOTRANSFERASE 7 U/L (0-55); ALBUMIN 4.2 GM/DL (3.2-4.5); ALKALINE PHOSPHATASE 72 U/L (40-136); BILIRUBIN,TOTAL 0.2 MG/DL (0.1-1.0); BUN/CREATININE RATIO 17; CALCIUM 8.8 MG/DL (8.5-10.1); CREATININE SERUM 0.69 MG/DL (0.60-1.30); GFR ESTIMATED 110; GLUCOSE 87 MG/DL (70-105); MAGNESIUM 2.1 MG/DL (1.6-2.4); TOTAL PROTEIN 6.7 GM/DL (6.4-8.2)
[2022-10-05 12:13] VITALS: BP 133/76
== END 2022-10-05 12:13 | disposition home or self-care (01) ==
LOC: EDUNIT# 10:42 → ER FS 10:46
DX: R42 Dizziness and giddiness (principal); R05.9 Cough, unspecified; E86.1 Hypovolemia; F17.210 Nicotine dependence, cigarettes, uncomplicated
CPT/HCPCS: 36415; 71045; 80053; 80306; 80320; 81000; 82947; 83735; 84703; 85025